=== PATIENT | male | born 1985 | race Caucasian/White ===

== ENCOUNTER 2018-03-15 15:18 | Emergency (ER) | payer OTHER, SELFPAY ==
[2018-03-15 15:19] VITALS: BP 138/98; PULSE 66; RESP 18; TEMP 36.2; O2SAT 99; BMI 25.0
--- NOTE | 2018-03-15 15:47 | ED.VISSUMM ---
- ER Visit Summary Date of Service: 03/15/18 Chief Complaint: Headache History of Present Illness: The patient is a 32 M who presents with a headache that has been constant for the past week. Patient had a CT scan done this morning which showed increased ventricular size is most pronounced in the lateral ventricles likely due to underlying shunt dysfunction. Patient states his last shunt surgery was at [facility] when he was under the age of 19. Patient denies any fevers. Patient denies any nausea or vomiting. Patient denies any paresthesias or weakness. Patient denies any visual changes. Patient describes his headache as a throbbing headache that is over the occiput and posterior neck. Patient states his pain is worse with standing. Physical Examination: Vital signs are stable. Patient is afebrile. Patient is in no acute distress. Cranial nerves II through XII are intact. Strength is 5/5 bilateral in the upper extremities. There are no motor deficits other than his chronic spina bifida deficits. Sensation is intact. Pupils are equal, round, and reactive to light bilateral. Extraocular muscles are intact. Oral mucosa is pink and moist. Neck is supple. Trachea is midline. There is no JVD noted. There is tenderness over the posterior cervical paraspinal muscles bilaterally. There is no bony crepitance or step-off. There is good range of motion. Heart was regular rate and rhythm. Lungs are clear and equal bilaterally. There is good respiratory effort noted. Abdomen is soft. Bowel sounds are normal. There is no tenderness. The remaining physical exam is within normal limits. Test Results: Review of the CT scan from this morning shows increased ventricular size most pronounced in the lateral ventricles with mildly increased crowding of the posterior fossa suggestive of underlying shunt dysfunction. Emergency Department Course and Treatment: Patient was given morphine here. Case was discussed with Dr. Encinas from the [facility] [place]. He accepted patient for transfer. They are very tight on beds and it will likely be a delay in the transfer. Patient and family understood and were agreeable with the plan. All questions were answered. 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 It may contain incorrect words, spelling, and punctuation that were not noted in review of the chart prior to signing ED Disposition - Plan for ED Patient: Disposition: Acute Care Hospital - Other Chief Complaint: Headache Diagnosis: Shunt malfunction Referrals: Jose Roberto Bradshaw [Primary Care Provider] -
--- NOTE | 2018-03-15 15:53 | ED.DCSUM_ITS ---
- ER Visit Summary Date of Service: 03/15/18 Chief Complaint: Headache History of Present Illness: The patient is a 32 M who presents with a headache that has been constant for the past week. Patient had a CT scan done this morning which showed increased ventricular size is most pronounced in the lateral ventricles likely due to underlying shunt dysfunction. Patient states his last shunt surgery was at [facility] when he was under the age of 19. Patient denies any fevers. Patient denies any nausea or vomiting. Patient denies any paresthesias or weakness. Patient denies any visual changes. Patient describes his headache as a throbbing headache that is over the occiput and posterior neck. Patient states his pain is worse with standing. Physical Examination: Vital signs are stable. Patient is afebrile. Patient is in no acute distress. Cranial nerves II through XII are intact. Strength is 5/ 5 bilateral in the upper extremities. There are no motor deficits other than his chronic spina bifida deficits. Sensation is intact. Pupils are equal, round, and reactive to light bilateral. Extraocular muscles are intact. Oral mucosa is pink and moist. Neck is supple. Trachea is midline. There is no JVD noted. There is tenderness over the posterior cervical paraspinal muscles bilaterally. There is no bony crepitance or step-off. There is good range of motion. Heart was regular rate and rhythm. Lungs are clear and equal bilaterally. There is good respiratory effort noted. Abdomen is soft. Bowel sounds are normal. There is no tenderness. The remaining physical exam is within normal limits. Test Results: Review of the CT scan from this morning shows increased ventricular size most pronounced in the lateral ventricles with mildly increased crowding of the posterior fossa suggestive of underlying shunt dysfunction. Emergency Department Course and Treatment: Patient was given morphine here. Case was discussed with Dr. Encinas from the [facility] at [place]. He accepted patient for transfer. They are very tight on beds and it will likely be a delay in the transfer. Patient and family understood and were agreeable with the plan. All questions were answered. 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 It may contain incorrect words, spelling, and punctuation that were not noted in review of the chart prior to signing ED Disposition - Plan for ED Patient: Disposition: Acute Care Hospital - Other Chief Complaint: Headache Diagnosis: Shunt malfunction Referrals: Jose Roberto Bradshaw [Primary Care Provider] -
[2018-03-15] MEDS: Ondansetron 4 MG/2 ML Vial IV (16:09)
[2018-03-15] MEDS: Morphine 4 MG/ML Syringe IV ×2 (16:10→17:48)
[2018-03-15 17:50] VITALS: BP 139/84; PULSE 70; RESP 16; O2SAT 100
[2018-03-15] MEDS: HYDROmorphone 1 MG/ML Syringe IV (18:49)
[2018-03-15 19:01] VITALS: BP 128/89; PULSE 75; RESP 16; O2SAT 99
[2018-03-15 19:05] VITALS: BP 128/89; PULSE 75; RESP 16; O2SAT 99
== END 2018-03-15 19:26 | disposition short-term general hospital (02) ==
PROVIDERS: Emergency Provider Emergency Medicine; Family Provider Family Medicine
DX: T85.01XA Breakdown (mechanical) of ventricular intracranial (communicating) shunt, initial encounter (principal); Q05.9 Spina bifida, unspecified; K21.9 Gastro-esophageal reflux disease without esophagitis
CPT/HCPCS: 96374; 96375; 96376; 99284; A4216; J2405

== ENCOUNTER 2018-03-20 12:17 | Emergency (ER) | payer OTHER, SELFPAY ==
[2018-03-20] VITALS (8 sets, daily range): BP systolic 109–131; BP diastolic 70–87; PULSE 56–87; RESP 14–25; TEMP 36.6–36.9; O2SAT 93–96; BMI 25.0
--- NOTE | 2018-03-20 12:54 | CT_ITS ---
STUDY: CT CERVICAL SPINE WITHOUT CONTRAST REASON FOR EXAM: Male, 32 years old. Status post fall. RADIATION DOSAGE (If Supplied By Facility): CTDIvol = ( 24.40 ) mGy, DLP = ( 617.77 ) mGycm TECHNIQUE: High resolution transaxial imaging was performed without contrast material. Sagittal and coronal images were reconstructed. Individualized dose optimization techniques were used for this CT. COMPARISON: None FINDINGS: Normal craniovertebral junction. Normal anterior atlantoaxial articulation. Normal odontoid process. Normal cervical lordosis. There is leftward torticollis. Normal vertebral bodies and posterior osseous elements. There is bifid spinous process at the levels of C4 and C5. C2-3: Normal endplates. Normal disc height and morphology. Normal central canal and intervertebral neuroforamina. C3-4: Normal endplates. Normal disc height and morphology. Normal central canal and intervertebral neuroforamina. C4-5: Normal endplates. Normal disc height and morphology. Normal central canal and intervertebral neuroforamina. C5-6: Normal endplates. Normal disc height and morphology. Normal central canal and intervertebral neuroforamina. C6-7: Normal endplates. Normal disc height and morphology. Normal central canal and intervertebral neuroforamina. C7-T1: Normal endplates. Normal disc height and morphology. Normal central canal and intervertebral neuroforamina. Normal visualized soft tissue structures. CT/Spine Cervical without Contras IMPRESSION: Leftward torticollis. No demonstrated acute fracture or subluxation. Electronically Signed: Jude Blanca MD at 14:28 EDT Tel , Service support ,
--- NOTE | 2018-03-20 12:54 | CT_ITS ---
STUDY: CT BRAIN WITHOUT CONTRAST REASON FOR EXAM: Male, 32 years old. Status post fall. Status post revision of LOAD BUILDER shunt. RADIATION DOSAGE (If Supplied By Facility): CTDIvol = ( 44.99 ) mGy, DLP = ( 829.85 ) mGycm TECHNIQUE: Transaxial CT imaging of the brain was performed without administration of intravenous contrast material. Individualized dose optimization techniques were used for this CT. COMPARISON: Prior comparison studies are not available for review at this time. FINDINGS: Normal soft tissue structures. There is a ruben hole in the right posterior parietal region. There is a ventriculostomy tube extending from the posterior right parietal region with its tip just superior to the anterior horn of the left lateral ventricle. There is small abdominal air in the interhemispheric fissure of the vertex. The ventricles are markedly dilated and larger on the left side particularly the occipital horns. The third and fourth ventricles are less distended. There is obliteration of the cortical sulci. No focal lesion otherwise is definitely seen. Normal basal ganglia and thalami. Normal brainstem. Normal cerebellum. There is no intracranial hemorrhage. There are no findings of an acute ischemic infarction. Normal visualized paranasal sinuses. CT/Brain/Head without Contrast IMPRESSION: Ventriculomegaly particularly of the occipital horn of the lateral ventricles and worse on the left side disproportionate to the cortical sulci Right-sided ventriculostomy tube with its tip just above the anterior horn of the left lateral ventricle. No evidence of bleeding. Comparison with previous examinations is recommended. Electronically Signed: Jude Blanca MD at 14:23 EDT Tel , Service support ,
--- NOTE | 2018-03-20 12:55 | EKG12_ITS ---
Test Reason : HEADACHE Blood Pressure : / mmHG Vent. Rate : 072 BPM Atrial Rate : 072 BPM P-R Int : 172 ms QRS Dur : 096 ms QT Int : 402 ms P-R-T Axes : 041 054 041 degrees QTc Int : 440 ms Normal sinus rhythm with sinus arrhythmia Normal ECG Confirmed by MIGUEL BATISTA, ANDREY ([id number]), order editor RUFUS QUINTANA ([id number]) on 03/22/2018 3:11:34 PM Referred By: YENNY Confirmed By:ANDREY RIVERA MD
--- NOTE | 2018-03-20 12:56 | ED.VISSUMM ---
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 Patient states he developed a severe headache in the occipital region and upper neck prior to arrival which caused him to fall. He thinks he lost consciousness, as he does not remember the fall. He is no longer having the severe headache but is still having severe pain in the upper neck, described as a throbbing in the midline neck. This is the same headache he had last week when he required emergency shunt revision for a malfunctioning valve. Patient denies fever, vision changes, abdominal pain, nausea or vomiting, or any back injury or other injury from the fall. Physical Examination: Vital signs: afebrile, hemodynamically stable, no hypoxia on room air General: well nourished, well developed, in no distress, c-collar in place Skin: warm, dry, no rash, no pallor HEENT: normocephalic large surgical incision on the right temporoparietal scalp with alfreda in place, no dehiscence, erythema, induration, tenderness or exudate; PERRL, EOMI, no nystagmus, moist mucous membranes Neck: No midline tenderness, deformities or step-offs, no paraspinal tenderness, shunt visible in the subcutaneous skin Cardiovascular: regular rate and rhythm without murmurs, no peripheral edema, 2+ pulses all distal extremities Respiratory: No increased work of breathing, lungs are clear to auscultation bilaterally, no rales, rhonchi or wheezing Abdominal: Abdomen is soft, nontender with normoactive bowel sounds, no guarding or rebound, no masses, well-healing surgical incision without dehiscence, erythema or exudate on the left upper abdomen MSK: Moves all extremities, no deformities, strength at baseline, orthopedic braces on bilateral lower extremities Neuro: Awake and alert, oriented ?4. No facial droop, sensation and motor function intact and symmetric Test Results: Abnormal Lab Results 03/20/18 03/20/18 03/20/18 13:25 13:25 13:25 WBC 7.0 RBC 4.36 L Hgb 13.2 Hct 39.6 L MCV 90.8 MCH 30.3 MCHC 33.3 RDW 12.5 RDW Differential 40.9 Plt Count 249 MPV 9.5 Immature Gran % (Auto) 0.300 Neut % (Auto) 70.7 H Lymph % (Auto) 11.9 L Hidalgo % (Auto) 12.7 H Eos % (Auto) 4.3 Baso % (Auto) 0.1 Absolute Neuts (auto) 4.9 Absolute Lymphs (auto) 0.83 Total Counted Not Reportable PT 13.0 INR 1.0 APTT 29.7 Sodium 142 Potassium 4.2 Chloride 110 H Carbon Dioxide 26.0 Anion Gap 6 BUN 14 Creatinine 0.86 Estim Creat Clear Calc 113.16 Est GFR (MDRD) Af Amer 131 Est GFR (MDRD) Non-Af 108 BUN/Creatinine Ratio 16.3 Glucose 67 L Calcium 8.7 Total Bilirubin 0.30 AST 54 H ALT 79 H Alkaline Phosphatase 96 Total Protein 7.1 Albumin 3.1 L Globulin 4.0 Albumin/Globulin Ratio 0.8 L Clinical Impression(s) from Imaging Studies Brain CT 03/20/18 12:54 IMPRESSION: Ventriculomegaly particularly of the occipital horn of the lateral ventricles and worse on the left side disproportionate to the cortical sulci Right-sided ventriculostomy tube with its tip just above the anterior horn of the left lateral ventricle. No evidence of bleeding. Comparison with previous examinations is recommended. Electronically Signed: Jude Blanca MD at 14:23 EDT Tel , Service support , Cervical Spine CT 03/20/18 12:54 IMPRESSION: Leftward torticollis. No demonstrated acute fracture or subluxation. Electronically Signed: Jude Blanca MD at 14:28 EDT Tel , Service support , Shuntogram 03/20/18 13:55 IMPRESSION: Shunt visualized extending from the skull to the abdominal cavity as described above. Electronically Signed: Jude Blanca MD at 14:48 EDT Tel , Service support , Medications Given Discontinued Medications Diphenhydramine HCl (Benadryl) 25 mg IV X1 ONE Stop: 03/20/18 12:57 Last Admin: 03/20/18 13:23 Dose: 25 mg Hydromorphone HCl (Dilaudid Inj) 1 mg IV X1 ONE Stop: 03/20/18 15:15 Last Admin: 03/20/18 15:36 Dose: 1 mg Metoclopramide HCl (Reglan) 10 mg IV X1 ONE Stop: 03/20/18 12:57 Last Admin: 03/20/18 13:22 Dose: 10 mg Emergency Department Course and Treatment: CT of the head and C-spine were performed given the trauma from falling as well as the severe headache and neck pain consistent with patient's prior shunt malfunction. Shunt series also performed. Patient was given Reglan and Benadryl for his headache, which gave no relief of his pain. Patient states he was receiving Dilaudid while in the hospital for shunt revision this past week. I am concerned his headache may be at least partially related to algesia rebound headache, however patient's headache was poorly controlled and thus he was given a dose of Dilaudid here. He had great improvement in his headache with this. CT of the head showed ventriculomegaly, left greater than right, concerning for shunt malfunction. No fracture or dislocation on the CT neck. Shunt series showed one area of either radio-opaque portion of the shunt or else a disconnect in the shunt in the parietal region. Because of concern for shunt malfunction, patient was again discussed with [facility], and was accepted for transfer to [facility] for neurosurgical reevaluation by Dr. Oliva. 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 It may contain incorrect words, spelling, and punctuation that were not noted in review of the chart prior to signing ED Disposition - Plan for ED Patient: Chief Complaint: Headache Referrals: Jose Roberto Bradshaw [Primary Care Provider] -
--- NOTE | 2018-03-20 13:00 | ED.DCSUM_ITS ---
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 Patient states he developed a severe headache in the occipital region and upper neck prior to arrival which caused him to fall. He thinks he lost consciousness, as he does not remember the fall. He is no longer having the severe headache but is still having severe pain in the upper neck, described as a throbbing in the midline neck. This is the same headache he had last week when he required emergency shunt revision for a malfunctioning valve. Patient denies fever, vision changes, abdominal pain, nausea or vomiting, or any back injury or other injury from the fall. Physical Examination: Vital signs: afebrile, hemodynamically stable, no hypoxia on room air General: well nourished, well developed, in no distress, c-collar in place Skin: warm, dry, no rash, no pallor HEENT: normocephalic large surgical incision on the right temporoparietal scalp with alfreda in place, no dehiscence, erythema, induration, tenderness or exudate; PERRL, EOMI, no nystagmus, moist mucous membranes Neck: No midline tenderness, deformities or step-offs, no paraspinal tenderness, shunt visible in the subcutaneous skin Cardiovascular: regular rate and rhythm without murmurs, no peripheral edema, 2+ pulses all distal extremities Respiratory: No increased work of breathing, lungs are clear to auscultation bilaterally, no rales, rhonchi or wheezing Abdominal: Abdomen is soft, nontender with normoactive bowel sounds, no guarding or rebound, no masses, well-healing surgical incision without dehiscence, erythema or exudate on the left upper abdomen MSK: Moves all extremities, no deformities, strength at baseline, orthopedic braces on bilateral lower extremities Neuro: Awake and alert, oriented ?4. No facial droop, sensation and motor function intact and symmetric Test Results: Abnormal Lab Results 03/20/18 03/20/18 03/20/18 13:25 13:25 13:25 WBC 7.0 RBC 4.36 L Hgb 13.2 Hct 39.6 L MCV 90.8 MCH 30.3 MCHC 33.3 RDW 12.5 RDW Differential 40.9 Plt Count 249 MPV 9.5 Immature Gran % (Auto) 0.300 Neut % (Auto) 70.7 H Lymph % (Auto) 11.9 L Powell % (Auto) 12.7 H Eos % (Auto) 4.3 Baso % (Auto) 0.1 Absolute Neuts (auto) 4.9 Absolute Lymphs (auto) 0.83 Total Counted Not Reportable PT 13.0 INR 1.0 APTT 29.7 Sodium 142 Potassium 4.2 Chloride 110 H Carbon Dioxide 26.0 Anion Gap 6 BUN 14 Creatinine 0.86 Estim Creat Clear Calc 113.16 Est GFR (MDRD) Af Amer 131 Est GFR (MDRD) Non-Af 108 BUN/Creatinine Ratio 16.3 Glucose 67 L Calcium 8.7 Total Bilirubin 0.30 AST 54 H ALT 79 H Alkaline Phosphatase 96 Total Protein 7.1 Albumin 3.1 L Globulin 4.0 Albumin/Globulin Ratio 0.8 L Clinical Impression(s) from Imaging Studies Brain CT 03/20/18 12:54 IMPRESSION: Ventriculomegaly particularly of the occipital horn of the lateral ventricles and worse on the left side disproportionate to the cortical sulci Right-sided ventriculostomy tube with its tip just above the anterior horn of the left lateral ventricle. No evidence of bleeding. Comparison with previous examinations is recommended. Electronically Signed: Jude Blanca MD at 14:23 EDT Tel , Service support , Cervical Spine CT 03/20/18 12:54 IMPRESSION: Leftward torticollis. No demonstrated acute fracture or subluxation. Electronically Signed: Jude Blanca MD at 14:28 EDT Tel , Service support , Shuntogram 03/20/18 13:55 IMPRESSION: Shunt visualized extending from the skull to the abdominal cavity as described above. Electronically Signed: Jude Blanca MD at 14:48 EDT Tel , Service support , Medications Given Discontinued Medications Diphenhydramine HCl (Benadryl) 25 mg IV X1 ONE Stop: 03/20/18 12:57 Last Admin: 03/20/18 13:23 Dose: 25 mg Hydromorphone HCl (Dilaudid Inj) 1 mg IV X1 ONE Stop: 03/20/18 15:15 Last Admin: 03/20/18 15:36 Dose: 1 mg Metoclopramide HCl (Reglan) 10 mg IV X1 ONE Stop: 03/20/18 12:57 Last Admin: 03/20/18 13:22 Dose: 10 mg Emergency Department Course and Treatment: CT of the head and C-spine were performed given the trauma from falling as well as the severe headache and neck pain consistent with patient's prior shunt malfunction. Shunt series also performed. Patient was given Reglan and Benadryl for his headache, which gave no relief of his pain. Patient states he was receiving Dilaudid while in the hospital for shunt revision this past week. I am concerned his headache may be at least partially related to algesia rebound headache, however patient's headache was poorly controlled and thus he was given a dose of Dilaudid here. He had great improvement in his headache with this. CT of the head showed ventriculomegaly, left greater than right, concerning for shunt malfunction. No fracture or dislocation on the CT neck. Shunt series showed one area of either radio-opaque portion of the shunt or else a disconnect in the shunt in the parietal region. Because of concern for shunt malfunction, patient was again discussed with [facility], and was accepted for transfer to [facility] for neurosurgical reevaluation by Dr. Oliva. 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 It may contain incorrect words, spelling, and punctuation that were not noted in review of the chart prior to signing ED Disposition - Plan for ED Patient: Chief Complaint: Headache Referrals: Jose Roberto Bradshaw [Primary Care Provider] -
[2018-03-20] MEDS: Metoclopramide 10 MG/2 ML Vial IV (13:22)
[2018-03-20] MEDS: DiphenhydrAMINE 50 MG/ML Syringe 25 MG IV (13:23)
[2018-03-20 13:37] LABS: Absolute Lymphocyte Count 0.83 X10^3/ul (0.83-4.51); Absolute Neutrophil Count 4.9 X10^3/uL (2.0-7.7); Basophil# 0.01 X10^3/uL; Basophil% 0.1 % (0-1); Eosinophils% 4.3 % (0-5); Hematocrit 39.6 % (40-54); Hemoglobin 13.2 g/dl (13.0-16.5); Lymphocyte # 0.83 X10^3/ul (4.0); Lymphocyte % 11.9 % (19-41); Mean Corp Hgb Conc 33.3 g/gl (32-36); Mean Corpuscular Hgb 30.3 pg (27.0-32.0); Mean Corpuscular Volume 90.8 fL (80-94); Mean Platelet Vol. 9.5 fl (6.2-12.0); Monocyte# 0.88 X10^3/uL; Monocyte% 12.7 % (0-10); Neutrophil # 4.91 X10^3/uL (2.7-7.7); Neutrophil % 70.7 % (47-70); POSITIVE COUNT NO; POSITIVE DIFFERENTIAL NO; POSITIVE MORPHOLOGY NO; Platelet Count 249 K/mm3 (150-450); RBC Distribution Width CV 12.5 % (11.6-14.6); RBC Distribution Width SD 40.9 fl (35.1-43.9); Red Blood Count 4.36 M/mm3 (4.6-6.2)
[2018-03-20 13:44] LABS: Partial Thromboplast Time 29.7 Seconds (24.1-36.2)
--- NOTE | 2018-03-20 13:55 | RAD_ITS ---
STUDY: SHUNTOGRAM. REASON FOR EXAM: Male, 32 years old. Evaluate shunt continuity. TECHNIQUE: View of the skull and neck, AP view of the chest and abdomen were obtained. COMPARISON: None. FINDINGS: There is a shunt overlying the parietal region. There is a gap in the shunt overlying the posterior parietal region. It is likely due to nonopaque part of the shunt. Discontinuity is less likely but cannot be excluded.. Distal to this region, the shunt appears continuous extending from the base of the skull to the abdominal cavity. In the abdominal cavity, it is coiled. There is contrast in the colon overlying the shunt in the upper abdomen limiting the evaluation of shunt in this region. RAD/Shuntogram/Prec Placed Shunt IMPRESSION: Shunt visualized extending from the skull to the abdominal cavity as described above. Electronically Signed: Jude Blanca MD at 14:48 EDT Tel , Service support ,
[2018-03-20 13:57] LABS: ALB/GLOB Ratio 0.8 RATIO (0.9-2.4); AST(SGOT) 54 U/L (15-37); Alanine Aminotransfer ALT/SGPT 79 U/L (16-61); Albumin, Serum 3.1 g/dL (3.2-5.0); Alkaline Phosphatase 96 U/L (45-117); Anion Gap 6 (5-15); BUN 14 mg/dL (7-18); BUN/Creat Ratio 16.3 RATIO (10-20); Calcium,Total 8.7 mg/dL (8.5-10.1); Chloride 110 mmol/L (98-107); Creatinine, Serum 0.86 mg/dL (0.70-1.30); EST Glomerular Filtration Rate 108 mL/min (>60); Est Glom Filt Rate - Afr Amer 131 mL/min (>60); Estimated Creatinine Clearance 113.16 ml/min; Glucose 67 mg/dL (74-106); Potassium 4.2 mmol/L (3.5-5.1); Protein, Total 7.1 g/dL (6.4-8.2); Sodium Level 142 mmol/L (136-145)
[2018-03-20] MEDS: HYDROmorphone 1 MG/ML Syringe IV (15:36)
[2018-03-20] MEDS: HYDROmorphone 0.5 MG/0.5 ML SYRINGE IV (17:30)
== END 2018-03-20 18:43 | disposition short-term general hospital (02) ==
LOC: ED 13:03
PROVIDERS: Emergency Provider Emergency Medicine; Family Provider Family Medicine
DX: T85.01XA Breakdown (mechanical) of ventricular intracranial (communicating) shunt, initial encounter (principal); Q05.9 Spina bifida, unspecified; R51 Headache; M54.2 Cervicalgia; W19.XXXA Unspecified fall, initial encounter; Y93.9 Activity, unspecified; Y92.9 Unspecified place or not applicable; Y99.9 Unspecified external cause status; Z79.899 Other long term (current) drug therapy
CPT/HCPCS: 70450; 72125; 75809; 80053; 85025; 85610; 85730; 93005; 96374; 96375; 96376; 99285; J7030; A4216

== ENCOUNTER → 2018-10-20 16:30 | Outpatient (CLI) | payer OTHER, SELFPAY ==
--- NOTE | 2018-10-20 16:34 | US_ITS ---
STUDY: SCROTUM ULTRASOUND REASON FOR EXAM: Male, 32 years old. Right testicular pain today. History of epididymitis. TECHNIQUE: Ultrasound evaluation of the scrotum was performed with color Doppler and static lucero-scale imaging. COMPARISON: None. FINDINGS: RIGHT TESTICLE INTRATESTICULAR: There is a normal size of the right testicle. The right testicle measures 3.7 x 2.6 x 1.6 cm. There is a homogenous echotexture. There is normal arterial and normal venous vascularity. There is no demonstrated right testicular mass or cyst. EXTRATESTICULAR: The epididymis is normal in size. The epididymis head measures 1.0 x 0.7 x 1.1 cm. There is normal vascularity of the epididymis. There is a 2 mm epididymal head cyst. There is a small hydrocele. There is no demonstrated varicocele. There is no demonstrated extratesticular mass or cyst. LEFT TESTICLE INTRATESTICULAR: There is a normal size of the left testicle. The left testicle measures 3.8 x 2.5 x 1.4 cm. There is a homogenous echotexture. There is normal arterial and normal venous vascularity. There is no demonstrated left testicular mass or cyst. EXTRATESTICULAR: The epididymis is normal in size. The epididymis head measures 1.1 x 1.1 x 0.8 cm. There is normal vascularity of the epididymis. There is no demonstrated epididymal cystic structure. There is no demonstrated hydrocele. There is no demonstrated varicocele. There is no demonstrated extratesticular mass or cyst. US/Testicular with Arterial Flow IMPRESSION: 1. Small right epididymal head cyst. 2. Small left hydrocele. 3. Otherwise normal scrotal ultrasound. Electronically Signed: Ramakrishna Santoyo DO at 17:27 EDT Tel [phone], Service support ,
== END ==
PROVIDERS: Family Provider Family Medicine; Referring Provider Family Medicine; Visit Provider Family Medicine
DX: N50.811 Right testicular pain (principal)
CPT/HCPCS: 76870; 93976

== ENCOUNTER 2018-11-02 12:10 | Emergency (ER) | payer OTHER, SELFPAY ==
[2018-11-02 12:10] VITALS: BP 130/86; PULSE 78; RESP 18; TEMP 36.8; O2SAT 98; BMI 23.5
[2018-11-02 13:19] VITALS: BP 129/88; PULSE 71; RESP 12; O2SAT 96
--- NOTE | 2018-11-02 13:30 | ED.VISSUMM ---
- ER Visit Summary Date of Service: 11/02/18 Chief Complaint: Back pain History of Present Illness: The patient is a 32 M history of spina bifida, anxiety depression and MANAGER STATE shunt. As a child he had lower back surgery to close his spina bifida opening. He has had no back surgery since that time. States the last several days has had intermittent sharp low back pain. Denies any radiation to his legs. No numbness or tingling. No new weakness. No bowel or bladder incontinence. No retention. No fever. No recent falls or injury or trauma. He is on no blood thinners. Physical Examination: Well-appearing young male. Vital signs stable afebrile. No distress. HEENT exam unremarkable. Neck nontender. Lungs clear to auscultation bilaterally. Heart regular rhythm no murmur. Abdomen soft nontender. Normal bowel sounds no peritoneal signs. Extremities moves all 4. Both upper extremities are neurovascularly intact lower extremities he wears chronic long-leg braces. He said there is been no change in his strength or sensation. He is able to lift either leg off the bed. With his braces on he does not do dorsi or plantarflexion. He has normal medial thigh sensation. Negative straight leg raise. No cauda equina or saddle anesthesia. Back exam cervical thoracic spine are nontender. His proximal lumbar spine there is mild tenderness. There is no ecchymosis or bruising. No redness or warmth. No signs of trauma. He has an old spina bifida surgical scar with a deep closure. This is on the very lowest lumbar spine area. Neurologically is awake and alert. He has chronic weakness in both lower extremities but is unchanged and he is able to lift both legs. Again no cauda equina or saddle anesthesia. Test Results: Discussed with patient we opted not to get plain films. He knows if this is not improving he may need an MRI for more appropriate evaluation of atraumatic spine pain. Emergency Department Course and Treatment: Toradol for pain. Treatment Plan: Anti-inflammatories for pain. Follow-up with his primary care physician if not improving he may need an MRI. He knows return if he develops fever, weakness or bowel or bladder incontinence or retention Disposition: Discharge Impression: Acute musculoskeletal low back pain History of spina bifida This note was generated with [place] [employer] software. It may contain incorrect words, spelling, and punctuation that were not noted in review of the chart prior to signing ED Disposition - Plan for ED Patient: Referrals: Jose Roberto Bradshaw [Primary Care Provider] -
--- NOTE | 2018-11-02 13:34 | ED.DCSUM_ITS ---
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 As a child he had lower back surgery to close his spina bifida opening. He has had no back surgery since that time. States the last several days has had intermittent sharp low back pain. Denies any radiation to his legs. No numbness or tingling. No new weakness. No bowel or bladder incontinence. No retention. No fever. No recent falls or injury or trauma. He is on no blood thinners. Physical Examination: Well-appearing young male. Vital signs stable afebrile. No distress. HEENT exam unremarkable. Neck nontender. Lungs clear to auscultation bilaterally. Heart regular rhythm no murmur. Abdomen soft nontender. Normal bowel sounds no peritoneal signs. Extremities moves all 4. Both upper extremities are neurovascularly intact lower extremities he wears chronic long-leg braces. He said there is been no change in his strength or sensation. He is able to lift either leg off the bed. With his braces on he does not do dorsi or plantarflexion. He has normal medial thigh sensation. Negative straight leg raise. No cauda equina or saddle anesthesia. Back exam cervical thoracic spine are nontender. His proximal lumbar spine there is mild tenderness. There is no ecchymosis or bruising. No redness or warmth. No signs of trauma. He has an old spina bifida surgical scar with a deep closure. This is on the very lowest lumbar spine area. Neurologically is awake and alert. He has chronic weakness in both lower extremities but is unchanged and he is able to lift both legs. Again no cauda equina or saddle anesthesia. Test Results: Discussed with patient we opted not to get plain films. He knows if this is not improving he may need an MRI for more appropriate evaluation of atraumatic spine pain. Emergency Department Course and Treatment: Toradol for pain. Treatment Plan: Anti-inflammatories for pain. Follow-up with his primary care physician if not improving he may need an MRI. He knows return if he develops fever, weakness or bowel or bladder incontinence or retention Disposition: Discharge Impression: Acute musculoskeletal low back pain History of spina bifida This note was generated with [employer] software. It may contain incorrect words, spelling, and punctuation that were not noted in review of the chart prior to signing ED Disposition - Plan for ED Patient: Referrals: Jose Roberto Bradshaw [Primary Care Provider] -
--- NOTE | 2018-11-02 13:34 | ED.DEP ---
ED Disposition - Plan for ED Patient: Disposition: Home or Assisted Living Instructions: ED Neck Back Pain General Referrals: Jose Roberto Bradshaw [Primary Care Provider] - 1 Week if not improving Additional Instructions: Motrin for pain. If not improving follow-up your primary care physician. You may need an MRI for further evaluation. Return to the ER if intractable worsening pain, fever or or bowel or bladder incontinence, unable to urinate or significant weakness in your lower extremities its new.
[2018-11-02] MEDS: Ketorolac 60 MG/2 ML Vial IM (13:37)
== END 2018-11-02 13:57 | disposition home or self-care (01) ==
PROVIDERS: Emergency Provider Emergency Medicine; Family Provider Family Medicine
DX: M54.5 Low back pain (principal); Q05.9 Spina bifida, unspecified; F32.9 Major depressive disorder, single episode, unspecified; F41.9 Anxiety disorder, unspecified; Z79.899 Other long term (current) drug therapy; Z98.2 Presence of cerebrospinal fluid drainage device
CPT/HCPCS: 96372; 99282; A4216

== ENCOUNTER 2019-04-19 16:29 | Emergency (ER) | payer OTHER, SELFPAY ==
[2019-04-19 16:30] VITALS: BP 122/81; PULSE 81; RESP 14; TEMP 36.7; O2SAT 100; BMI 24.0
--- NOTE | 2019-04-19 17:23 | CT_ITS ---
STUDY: CT BRAIN WITHOUT CONTRAST REASON FOR EXAM: Male, 33 years old. Headache for 4 days. Concern for malfunctioning BODY AND FENDER MECHANIC shunt. RADIATION DOSAGE (If Supplied By Facility): CTDIvol = ( 44.99 ) mGy, DLP = ( 796.11 ) mGycm TECHNIQUE: Transaxial CT imaging of the brain was performed without administration of intravenous contrast material. Individualized dose optimization techniques were used for this CT. COMPARISON: March 20, 2018. FINDINGS: Normal soft tissue structures. Again seen is a right parietal BODY AND FENDER MECHANIC shunt catheter entering through a ruben hole. Tip extends into the right lateral ventricle. There is marked decrease dilatation of the ventricles when compared to the prior study. Again seen is prominence of the foramen magnum with a Chiari I malformation unchanged from the prior study. There is persistent mild dilatation of the occipital horn of the left lateral ventricle. The remainder of the ventricles are of normal size. Mild cerebral atrophy. Normal white matter tracts of the cerebral hemispheres. Normal basal ganglia and thalami. Normal brainstem. Normal cerebellum. There is no intracranial hemorrhage. There are findings suggestive of small subdural hygromas which were noted on the previous examination. There are no findings of an acute ischemic infarction. Normal visualized paranasal sinuses. CT/Brain/Head without Contrast IMPRESSION: 1. Right-sided BODY AND FENDER MECHANIC shunt catheter. There is interval decrease in ventricular dilatation when compared to the previous examination. 2. Question small subdural hygroma is unchanged from prior study. There is no evidence of acute hemorrhage or infarct. 3. Stable Chiari malformation. Electronically Signed: Ramakrishna Santoyo DO at 18:13 EDT Tel [phone], Service support ,
--- NOTE | 2019-04-19 17:23 | ED.DCSUM_ITS ---
History of Present Illness Chief Complaint: Headache Informant: Patient Onset: Days - Onset 3 days ago April 15 Context: Sudden Timing: Continuous Quality: Similar Prior Headaches Location: Global Current Severity: Moderate Maximum Severity: Severe Worsened by: Walking Relieved by: Nothing Associated Symptoms: Blurred Vision. Negative for: Fever, Nausea, Vomiting, Sore Throat, Sinus Pressure, Tingling, Preceding Aura, Visual Changes, Visual Loss Injury: - - There is no history of trauma Narrative: Patient is a 33-year-old male with history of hydrocephalus and spina bifida who presents with headache that started abruptly 3 days ago. 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 His last revision was 1 year ago at [facility]. He complained of intermittent blurred vision bilaterally. He had no other ocular symptoms. He denies ringing his ears, decreased hearing or ear pain. He denies trouble with speech or swallowing. He denies any new paresthesia, anesthesia motor weakness. He does have weakness of his lower extremity secondary to spina bifida. He does self cath. He has no complaints of discomfort with self cath or odor or change in color of his urine. He denies neck stiffness. He denies photophobia. Prior similar symptoms: Yes Recent Illness/Hospitalization: Yes - Past Medical History (1) Spina bifida Status: Chronic (2) Ventricular shunt in place Status: Chronic Past Medical History - Allergies and Home Meds Allergies/Adverse Reactions: Allergies Iodine and Iodide Containing Produc Allergy (Verified 04/19/19 16:33) Rash acetaminophen [From Vicodin] Adverse Reaction (Verified 04/19/19 16:33) Chest tightness hydrocodone [From Vicodin] Adverse Reaction (Verified 04/19/19 16:33) Chest tightness Latex, Natural Rubber Adverse Reaction (Verified 04/19/19 16:33) Chest tightness Penicillins [PCN] Adverse Reaction (Verified 04/19/19 16:33) Rash Primary Care Physician: Jose Roberto Bradshaw [Primary Care Provider] - Prior records reviewed: Yes Surgical History: - - Patient is undergone several bladder augmentation procedures. He has a ventriculoperitoneal shunt in place, which has required several revisions. He has had left hip surgery as well. Lives: Alone Smoking Status: Former smoker Alcohol: None Drugs: None - Family History Maternal Family History: Reports: - - Patient's father at age of 71 with a history of Alzheimer's disease, diabetes mellitus, dementia, and abdominal cancer. The patient's mother is 71 years of age and healthy. Review of Systems General: Denies: Chills, Fever, Sweats Eyes: Reports: Blurred Vision - bilaterally. Denies: Visual changes - bilaterally, Diplopia ENT: Denies: Bilateral ear pain, Rhinorrhea, Sore throat Cardiovascular: Denies: Chest pain, Palpitations, Heart racing Respiratory: Denies: Dyspnea, Cough, Dyspnea on exertion Gastrointestinal: Denies: Abdominal pain, Nausea, Vomiting, Diarrhea, Melena, Hematochezia Genitourinary: Denies: Dysuria, Hematuria, Frequency Musculoskeletal: Denies: Myalgias, Arthralgias, Neck pain, Back pain, Swelling, Extremity Pain, -, - Skin: Denies: Rash, Wounds Neurological: Reports: Headache, Parasthesia, Numbness Psych: Denies: Depression Hematologic: Denies: Easy bruising, Easy bleeding Allergy: Denies: Uticaria Physical Exam Vital Signs/Narrative: Vital Signs Temp Pulse Resp BP Pulse Ox 04/19/19 16:30 98.1 F 81 14 122/81 H 100 General: Well nourished, Well developed. Negative for: Obese, Cachectic, Contractures, Unkempt Head: NC, AT. Negative for: Trauma, Tenderness, Temporary Artery Tenderness, Vesicular Rash, Sinus Tenderness Eyes: Perrl, EOMI. Negative for: Pale conjunctiva, Scleral icterus ENT: Moist mucous membranes, No rhinorrhea, TM's clear Neck: Supple, No Lymphadenopathy, No JVD, Nontender, No Meningismus Cardiovascular: Regular rate, Regular rhythm, No murmurs, Normal S1, Normal S2 Respiratory: No distress, CTA bilaterally, Chest nontender Abdomen: Soft, Nontender, Nondistended, Normal bowel sounds, No masses Back: Nontender, Normal Inspection Extremities: Nontender, No edema Skin: Normal color, No rash Neuro: Alert, Oriented x3, Cranial nerves II-XII grossly intact. Negative for: Normal Strength, Normal Sensation, Normal DTR, Normal Gait Psychological: Normal affect Diagnostic/Tx/Re-eval Impressions Brain CT 04/19/19 17:23 IMPRESSION: 1. Right-sided LATEX RIBBON MACHINE OPERATOR shunt catheter. There is interval decrease in ventricular dilatation when compared to the previous examination. 2. Question small subdural hygroma is unchanged from prior study. There is no evidence of acute hemorrhage or infarct. 3. Stable Chiari malformation. Electronically Signed: Ramakrishna SantoyoDO at 18:13 EDT Tel [phone], Service support , 04/19/19 17:23 Brain/Head without Contrast [CT] Stat Patient states he has had slight improvement of his headache after IV Toradol. He was informed of his results. - Medical Decision Making With history of abrupt headache and LATEX RIBBON MACHINE OPERATOR shunt will obtain CT to assess malfunctioning LATEX RIBBON MACHINE OPERATOR shunt. Patient was medicated with IV Toradol. Was discharged prescription for Reglan and anti-inflammatory. He was instructed to follow with Dr. Bradshaw if no improvement in 2 to 3 days. ED Disposition - Plan for ED Patient: Disposition: Home or Assisted Living Diagnosis: Cephalgia, History of hydrocephalus as a child Instructions: HEADACHE, Unspecified Prescriptions: Naproxen [Naprosyn] 500 mg PO BID #10 tab Prescription Printed Metoclopramide [Reglan] 10 mg PO 4X/DAY PRN #10 tab PRN Reason: Headache Prescription Printed Referrals: Jose Roberto Bradshaw [Primary Care Provider] - 3-5 Days if not improving
[2019-04-19] MEDS: Ketorolac 30 MG/ML Syringe 15 MG IV (17:46)
[2019-04-19 18:42] VITALS: BP 127/94; PULSE 85; RESP 16; O2SAT 98
--- NOTE | 2019-04-19 18:42 | ED.RN ---
REVIEWED D/C INSTRUCTIONS, FOLLOW UP CARE, PRESCRIPTIONS, AND S/S THAT WOULD WARRANT A RETURN TO THE ED WITH PT. PT VERBALIZED AN UNDERSTANDING AND DENIES FURTHER QUESTIONS FOR THIS RN. PT SKIN P/W/D, RESP EVEN AND UNLABORED, PT A&O X 3, NO DISTRESS NOTED. PT AMBULATED OUT OF ED, GAIT STEADY.R
== END 2019-04-19 18:44 | disposition home or self-care (01) ==
PROVIDERS: Emergency Provider Emergency Medicine; Family Provider Family Medicine
DX: R51 Headache (principal); Q05.4 Unspecified spina bifida with hydrocephalus; Z98.2 Presence of cerebrospinal fluid drainage device; Z87.891 Personal history of nicotine dependence
CPT/HCPCS: 70450; 96374; 99284; A4216

== ENCOUNTER 2019-12-12 09:55 | Emergency (ER) | payer OTHER, SELFPAY ==
[2019-12-12 09:56] VITALS: BP 132/83; PULSE 86; RESP 17; TEMP 36.3; O2SAT 98; BMI 25.2
--- NOTE | 2019-12-12 10:25 | CT_ITS ---
STUDY: CT ABDOMEN AND PELVIS WITH CONTRAST REASON FOR EXAM: Male, 33 years old. ABD/EPIGASTRIC/RECTAL PAIN X 2-3 WKS, V/P SHUNT, SPINA BIFIDA RADIATION DOSAGE (If Supplied By Facility): CTDIvol = ( 8.67 ) mGy, DLP = ( 475.68 ) mGycm TECHNIQUE: Transaxial images were obtained from the dome of the diaphragm to the symphysis pubis without oral contrast. IV 100ML ISOVUE 300 was administered. Sagittal and coronal images were reconstructed. Individualized dose optimization techniques were used for this CT. COMPARISON: 2016 FINDINGS: The visualized lung bases are unremarkable, aside from dependent atelectasis. The visualized portions of the heart are within normal limits. Right-sided SQL SERVER DBA shunt tube noted Again noted are changes consistent with spina bifida posterior to L4-L5 and the sacrum. Markedly abnormal neurogenic bladder is again noted. Normal liver. Normal gallbladder and extrahepatic biliary system. Normal spleen. Normal pancreas. Normal bilateral adrenal glands. Left kidney is smaller than the right with stable pelviectasis. This again is likely due to a neurogenic bladder. Normal visualized stomach. Multiple nondistended fluid-filled small and large bowel loops are noted consistent with gastroenteritis. The appendix is visualized and appears normal. Normal abdominal aorta. Normal inferior vena cava. Normal retroperitoneum. There is a multiloculated fluid collection within the medial left buttocks measuring 3.9 x 3.6 cm. There is associated induration of the subcutaneous fat and skin thickening. Similar induration of the subcutaneous fat and skin thickening noted in the right side but no suspicious fluid collection is noted. Normal osseous structures aside from the spina bifida changes CT/Abdomen/Pelvis W IV Cont ONLY IMPRESSION: Multiloculated fluid collection in the medial left gluteal region best seen on axial images 129 through 133 with associated induration of the subcutaneous fat and skin thickening. This is likely an inflammatory process, perhaps abscess. No subcutaneous air or within this collection is noted. No abnormal fluid in the soft tissues of the right gluteal region is noted but there is nonspecific induration of the subcutaneous fat and skin thickening as well. Stable atrophic left kidney with pelviectasis Multiple nondistended fluid-filled small and large bowel loops consistent with gastroenteritis Right-sided SQL SERVER DBA shunt tube noted Changes in the lower lumbar spine and sacrum consistent with patient''s history of spina bifida Electronically Signed: Godfrey Stallings MD at 12:39 EDT , Service support ,
--- NOTE | 2019-12-12 10:31 | ED.DCSUM_ITS ---
History of Present Illness Chief Complaint: Abd Pain Informant: Patient - Abdominal Pain/Flank Pain Onset: Weeks Context: Gradual Onset Timing: Continuous Quality: Aching, Sharp Location: Epigastric - Nausea/Vomiting/Emesis GI Symptom: Negative for: Nausea, Vomiting - Diarrhea/Melena/Hematochezia GI Symptom: Diarrhea. Negative for: Melena, Hematochezia Narrative: Patient is a 33-year-old male with history of spina bifida status post bladder surgery and MUSHROOM GROWER shunt placements, last replaced 1 year ago, as well as depression presenting with abdominal pain. Patient states he has had constant epigastric abdominal pain for the past 2 to 3 weeks. It fluctuates in intensity and seems to be worse after he eats or drinks anything. He denies any radiation of that pain. He also notes he is had some pain in his lower back for the past week. In addition for the past week he has had rectal pain with bowel movements. He denies any black or bloody stools. He states his bowel movements have been abnormal lately where he feels that his stool builds up and then all of a sudden he has diarrhea. Patient denies any penile discharge or dysuria. He denies any chest pain, shortness of breath or difficulty breathing. [place] any fever or chills. He has no associated nausea and vomiting. Patient saw his PCP who thought he might have acid reflux and placed him on Pepcid twice a day. He feels that this is not helping. He denies any other complaints at this time. Past Medical History - Allergies and Home Meds Allergies/Adverse Reactions: Allergies Iodine and Iodide Containing Produc Allergy (Verified 12/12/19 09:56) Rash acetaminophen [From Vicodin] Adverse Reaction (Verified 12/12/19 09:56) Chest tightness hydrocodone [From Vicodin] Adverse Reaction (Verified 12/12/19 09:56) Chest tightness Latex, Natural Rubber Adverse Reaction (Verified 12/12/19 09:56) Chest tightness Penicillins [PCN] Adverse Reaction (Verified 12/12/19 09:56) Rash Primary Care Physician: Sylvie Dee MD [STAFF PHYSICIAN] - Jose Roberto Bradshaw [Primary Care Provider] - Past Medical History: - - depression, spina bifida Surgical History: - - Patient is undergone several bladder augmentation procedures. He has a ventriculoperitoneal shunt in place, which has required several revisions. He has had left hip surgery as well. Smoking Status: Former smoker - Family History Maternal Family History: Reports: - - Patient's father at age of 71 with a history of Alzheimer's disease, diabetes mellitus, dementia, and abdominal cancer. The patient's mother is 71 years of age and healthy. Review of Systems General: Denies: Chills, Fever, Sweats Eyes: Denies: Visual changes - bilaterally, Diplopia ENT: Denies: Rhinorrhea, Sore throat Cardiovascular: Denies: Chest pain, Palpitations Respiratory: Denies: Dyspnea, Cough, Dyspnea on exertion Gastrointestinal: Reports: Abdominal pain, Diarrhea. Denies: Nausea, Vomiting, Melena, Hematochezia Genitourinary: Denies: Dysuria, Hematuria, Frequency Musculoskeletal: Reports: Back pain. Denies: Extremity Pain Skin: Denies: Rash, Wounds Neurological: Denies: Headache, Weakness, Numbness Physical Exam Vital Signs/Narrative: Vital Signs Temp Pulse Resp BP Pulse Ox 12/12/19 09:56 97.3 F L 86 17 132/83 H 98 Inital Vital Signs reviewed: Yes General: Well nourished, Well developed, No Acute Distress Head: Normocephalic, Atraumatic Eyes: Perrl, EOMI ENT: Moist mucous membranes, No rhinorrhea Neck: Supple, Nontender, No JVD Cardiovascular: Regular rate, Regular rhythm, No murmurs Respiratory: No distress, CTA bilaterally, Chest nontender Abdomen: Soft, Nondistended, Normal bowel sounds, Tender - Right upper quadrant, Silveira's sign Rectal: Tenderness, - - Mild tenderness palpation rectal exam, abscess appreciated. No hemorrhoids visualized. Tenderness is not located directly with the prostate. Back: Nontender, Normal Inspection. Negative for: CVA tenderness, Spinal tenderness Extremities: Nontender, No edema Skin: Normal color, No rash Neurological: Alert, Oriented x3, Cranial nerves II-XII grossly intact, Normal Strength, Normal Sensation Psychological: Normal affect, Normal Mood Diagnostic/Tx/Re-eval Clinical Impression(s) from Imaging Studies Abdomen/Pelvis CT 12/12/19 10:25 IMPRESSION: Multiloculated fluid collection in the medial left gluteal region best seen on axial images 129 through 133 with associated induration of the subcutaneous fat and skin thickening. This is likely an inflammatory process, perhaps abscess. No subcutaneous air or within this collection is noted. No abnormal fluid in the soft tissues of the right gluteal region is noted but there is nonspecific induration of the subcutaneous fat and skin thickening as well. Stable atrophic left kidney with pelviectasis Multiple nondistended fluid-filled small and large bowel loops consistent with gastroenteritis Right-sided MUSHROOM GROWER shunt tube noted Changes in the lower lumbar spine and sacrum consistent with patient''s history of spina bifida Electronically Signed: Godfrey Stallings MD at 12:39 EDT , Service support , ADDENDUM: 12/12/19 1336 Laboratory Data 12/12/19 12/12/19 12/12/19 10:40 10:40 10:45 WBC 6.3 RBC 4.99 Hgb 15.1 Hct 45.3 MCV 90.8 MCH 30.3 MCHC 33.3 RDW Std Deviation 39.9 RDW Coeff of Kim 12.2 Plt Count 242 MPV 9.8 Immature Gran % (Auto) 0.200 Neut % (Auto) 55.0 Lymph % (Auto) 32.6 Campbell % (Auto) 7.2 Eos % (Auto) 4.2 Baso % (Auto) 0.8 Absolute Neuts (auto) 3.5 Absolute Lymphs (auto) 2.04 Nucleated RBC % 0 Sodium 141 Potassium 3.8 Chloride 110 H Carbon Dioxide 27.0 Anion Gap 4 L BUN 15 Creatinine 0.81 Estim Creat Clear Calc 119.01 Est GFR (MDRD) Af Amer 139 Est GFR (MDRD) Non-Af 115 BUN/Creatinine Ratio 18.6 Glucose 82 Calcium 9.1 Total Bilirubin 0.20 AST 15 ALT 26 Alkaline Phosphatase 96 Total Protein 8.1 Albumin 4.0 Globulin 4.1 Albumin/Globulin Ratio 1.0 Lipase 87 Urine Color Yellow Urine Clarity Sl. Cloudy Urine pH 7.0 Ur Specific [place] 1.010 Urine Protein Negative Urine Glucose (UA) Normal Urine Ketones Negative Urine Occult Blood 25 H Urine Nitrite Positive H Urine Bilirubin Negative Urine Urobilinogen Normal Ur Leukocyte Esterase 100 H Urine RBC 0 SEEN Urine WBC 25-50 SEEN Ur Squamous Epith Cells 0-5 SEEN Urine Bacteria 2+ Urine Mucus 0 SEEN - Medical Decision Making Evaluated for multiple complaints including epigastric pain for the past 2 to 3 weeks as well as 1 week of lower back pain and pain with defecation. He states his bowel movements have been abnormal. On rectal exam patient is not have any signs of a pilonidal abscess or perirectal abscess. He does have mild tenderness to palpation on the rectal exam. Urinalysis does show findings concerning for inflammation versus infection. Differential includes cystitis versus prostatitis. Lab work is normal including CBC and CMP. Patient is given IV Protonix and GI cocktail which does seem to improve his epigastric pain. CT of the abdomen and pelvis does find loculated fluid collection of the left buttocks that is deep to the skin. There is no overlying skin changes on physical exam. I did discuss this with surgery on-call who is more suspicious of a hematoma than an abscess given his lack of white blood cell count, shift or pain in the area. She does not think this is related to his pain with defecation. Patient will be started on Bactrim to cover prostatitis versus cystitis and urine culture is pending. He will follow-up with surgery for his epigastric pain as well as this possible deep abscess. Patient verbalizes agreement understand this plan. He is given first dose of Bactrim in the emergency room. ED Disposition - Plan for ED Patient: Disposition: Home or Assisted Living Diagnosis: Epigastric pain, Prostatitis, acute, UTI (urinary tract infection), Abscess of buttock, left Instructions: ED Prostatitis, ED CYSTITIS Male Adult, ED Epigastric Pain [facility] Prescriptions: Smz/Tmp Ds [Bactrim Ds] 1 tab PO BID #28 tab Transmission Status: Pending to [email or web address] [facility] Omeprazole 20 mg PO DAILY #14 tablet. Transmission Status: Pending to [email or web address] Referrals: Jose Roberto Bradshaw [Primary Care Provider] - Sylvie Dee MD [STAFF PHYSICIAN] - Additional Instructions: I suspect your upper abdominal pain is from inflammation of your stomach. Stop taking Pepcid and start taking the new medication, omeprazole for this. The pain with pooping could either be a urinary tract infection or infection/inflammation of your prostate. You be placed on Bactrim which will treat both of those. The CT of your abdomen did show a fluid collection in your left buttocks concerning for a hematoma which is like a bruise versus an abscess. Please follow-up with Dr. Dee, surgery, in 1 to 2 weeks. She can evaluate you further for your abdominal pain as well as this possible abscess.
[2019-12-12] MEDS: 0.9% Normal Saline 1,000 ML 1000 ML IV (10:50)
[2019-12-12 10:52] LABS: Absolute Lymphocyte Count 2.04 X10^3/uL (0.83-4.51); Absolute Neutrophil Count 3.5 X10^3/uL (2.0-7.7); Basophil# 0.05 X10^3/uL; Basophil% 0.8 % (0-1); Eosinophil# 0.26 X10^3/uL; Eosinophils% 4.2 % (0-5); Hematocrit 45.3 % (40-54); Hemoglobin 15.1 g/dL (13.0-16.5); Lymphocyte # 2.04 X10^3/ul (4.0); Lymphocyte % 32.6 % (19-41); Mean Corp Hgb Conc 33.3 g/dL (32-36); Mean Corpuscular Hgb 30.3 pg (27.0-32.0); Mean Corpuscular Volume 90.8 fL (80-94); Mean Platelet Vol. 9.8 fl (6.2-12.0); Monocyte# 0.45 X10^3/uL; Monocyte% 7.2 % (0-10); NRBC Flagged by Analyzer 0 % (0-5); Neutrophil # 3.45 X10^3/uL (2.7-7.7); Platelet Count 242 K/mm3 (150-450); RBC Distribution Width CV 12.2 % (11.6-14.6); RBC Distribution Width SD 39.9 fl (35.1-43.9); Red Blood Count 4.99 M/mm3 (4.6-6.2); White Blood Count 6.3 K/mm3 (4.4-11.0)
[2019-12-12] MEDS: Morphine 4 MG/ML Syringe IV (10:52)
[2019-12-12] MEDS: DiphenhydrAMINE 50 MG/ML Syringe IV (10:52)
[2019-12-12 10:54] LABS: Mucous, Urine 0 SEEN /hpf (<or=2+); Red Blood Cells-Urine 0 SEEN /hpf (0-5)
[2019-12-12 10:56] LABS: Color, Urine Yellow (Yellow); Glucose, Dipstick Normal (Normal); Ketone-Dipstick Negative (Negative); Leukocyte Esterase-Dipstick 100 /ul (Negative); Nitrite-Dipstick Positive (Negative); Occult Blood-Urine 25 /ul (Negative); Protein-Dipstick Negative (Negative); Urine Bilirubin Dipstick Negative (Negative); Urine Clarity Sl. Cloudy (Clear); Urine Urobilinogen Normal (Normal)
[2019-12-12 11:01] LABS: Bacteria 2+ /hpf (None Seen); Squamous Epithelial Cells - UA 0-5 SEEN /hpf (0-5); White Blood Cells 25-50 SEEN /hpf (0-5)
[2019-12-12 11:07] LABS: AST(SGOT) 15 U/L (15-37); Alanine Aminotransfer ALT/SGPT 26 U/L (16-61); Alkaline Phosphatase 96 U/L (45-117); Anion Gap 4 (5-15); BUN 15 mg/dL (7-18); BUN/Creat Ratio 18.6 RATIO (10-20); Calcium,Total 9.1 mg/dL (8.5-10.1); Chloride 110 mmol/L (98-107); Creatinine, Serum 0.81 mg/dL (0.70-1.30); EST Glomerular Filtration Rate 115 mL/min (>60); Est Glom Filt Rate - Afr Amer 139 mL/min (>60); Estimated Creatinine Clearance 119.01 ml/min; Globulin 4.1 g/dL (2.2-4.2); Glucose 82 mg/dL (74-106); Lipase 87 U/L (73-393); Potassium 3.8 mmol/L (3.5-5.1); Protein, Total 8.1 g/dL (6.4-8.2); Sodium Level 141 mmol/L (136-145)
[2019-12-12 12:05] VITALS: RESP 18
[2019-12-12] MEDS: Mag Hydrox/Al Hydrox/Simeth 30 ML UDC PO (13:30)
[2019-12-12] MEDS: Smz/Tmp Ds Tablet 1 TABLET PO (15:23)
[2019-12-12 15:29] VITALS: BP 134/84; PULSE 88; RESP 16; O2SAT 99
== END 2019-12-12 15:31 | disposition home or self-care (01) ==
PROVIDERS: Emergency Provider Emergency Medicine
DX: R10.13 Epigastric pain (principal); N41.0 Acute prostatitis; N39.0 Urinary tract infection, site not specified; L02.31 Cutaneous abscess of buttock; Z79.899 Other long term (current) drug therapy; Q05.9 Spina bifida, unspecified; Z87.891 Personal history of nicotine dependence; Z98.2 Presence of cerebrospinal fluid drainage device; F32.9 Major depressive disorder, single episode, unspecified
CPT/HCPCS: 74177; 80053; 81001; 83690; 85025; 87077; 87086; 87088; 87186; 96361; 96365; 96375; 99284; J7030; J7050; Q9967; A4216

== ENCOUNTER → 2019-12-30 16:23 | Outpatient (CLI) | payer OTHER, SELFPAY ==
[2019-12-28 14:03] VITALS: BMI 25.0
--- NOTE | 2019-12-30 16:27 | US_ITS ---
HISTORY: Fluid collection in left gluteal area seen on CT. 10 images end to cine clips. Comparison study is a CT scan from December 12, 2019 Findings: Hypo-echoic tissue is present within the myofascial planes of the left upper thigh at the junction with the buttock. There is edema within the fat around the lesion. Margins are difficult to differentiate from the edema within the tissue. The aquaculture director measures it at 3.9 cm in transverse dimensions. Additional measurements were made, but I do not believe these are only of the fluid, these also include some fat. By my measurement, on the aquaculture director's image, this rim of fluid is 4 mm thick. There is hyperemia within the tissues around it. US/Other Unlisted US Procedure IMPRESSION: Approximately 4 cm x 4 mm fluid collection within the junction of the proximal left thigh and buttock fat and myofascial layers. This appears to be perhaps persistent abscess that appear to be larger on the December 12, 2019 CT scan. at 2248 Reported and signed by: Roberto Carlos Gilmore MD Electronically Signed: Roberto Carlos Gilmore MD at 22:47 EDT Tel , Service support ,
== END ==
PROVIDERS: Referring Provider Surgery; Visit Provider Surgery
DX: L02.31 Cutaneous abscess of buttock (principal)
CPT/HCPCS: 76999

== ENCOUNTER 2020-01-03 09:31 | Day surgery (SDC) | payer OTHER, SELFPAY ==
--- NOTE | 2019-12-28 03:29 | HP_ITS ---
Intake Vital Signs 12/28/19 Height 5 ft 7 in 12/28/19 Weight: 160 lb 12/28/19 BMI 25.0 12/28/19 BP 126/86 H 12/28/19 Blood Pressure Location Rt brachial 12/28/19 Position Sitting 12/28/19 Respiration 18 12/28/19 BMI 25.2 Intake Visit Reasons: Abscess, [facility] ER F/U Global Climate Change Analyst Required: No Is patient in pain?: Yes (epigastric pain) Allergies Iodine and Iodide Containing Produc Allergy (Verified 12/28/19 14:04) Rash acetaminophen [From Vicodin] Adverse Reaction (Verified 12/28/19 14:04) Chest tightness hydrocodone [From Vicodin] Adverse Reaction (Verified 12/28/19 14:04) Chest tightness Latex, Natural Rubber Adverse Reaction (Verified 12/28/19 14:04) Chest tightness Penicillins [PCN] Adverse Reaction (Verified 12/28/19 14:04) Rash Medications Smz/Tmp Ds [Bactrim Ds] 1 tab PO BID #28 tab 12/12/19 [Rx] Venlafaxine HCl [Venlafaxine HCl ER] 75 mg PO DAILY 12/12/19 [History Confirmed 12/12/19] pantoprazole 40 mg tablet,delayed release 40 mg PO DAILY #30 tab 12/28/19 [Rx Confirmed 12/28/19] PFSH Medical History Pressure ulcer of ischium, stage 3 (Acute) Ventricular shunt in place (Chronic) Spina bifida (Chronic) Surgical History History of bladder repair surgery (Acute) Previous back surgery (Acute) S/P HEALTHCARE RECRUITER shunt (Acute) Family History Father Diabetes Mother Hypertension Social History (Updated 12/28/19 @ 15:[address] Sylvie Dee MD) Smoking Status: Never smoker alcohol intake: never HPI HPI HPI: YESI BRANTLEY, is a 34 M who presents to the office today for HPI HPI Surgical H&P: Yes HPI: YESI BRANTLEY, is a 34 M who presents to the office today for follow-up from ER visit patient states he has been having epigastric pain for the last month it is constant patient states it is worse with any p.o. intake even water pain occurs immediately after eating. Patient has had a decreased appetite. Patient also states he has had had a small amount of bright red blood in his stool the last 2 or 3 days states he normally has bowel movements every other day denies any constipation recently or hard stools but did have constipation initially when the epigastric pain started about a month ago. Patient denies having hemorrhoids. Patient is never had an EGD or colonoscopy. He has a have a past medical history for spina bifida and does have a bladder augmentation that uses part of his bowels to increase the size of his bladder patient is unsure if small bowel or colon was done when he was little. CT abdomen pelvis done at the ER did show a fluid collection in the left gluteal area patient denies any pain there does state he does have some falls due to his spina bifida but does not remember any specific incident. Exam Const General: cooperative, comfortable, well developed Resp Effort & Inspection: normal respiratory effort Cardio Rate: regular rate GI Inspection: non-distended, incision (Well-healed previous midline due to bladder augmentation as well as total HEALTHCARE RECRUITER shunts placed in the past) Palpation: soft, tender (Right upper quadrant, epigastric, left upper quadrant, no guarding or rebound) Other: NAHUN deferred until colonoscopy Assessment & Plan Problems 1. Epigastric pain R10.13 2. BRBPR (bright red blood per rectum) K62.5 3. Hematoma of left lower extremity S80.12XA Plan Patient states he has been taking Pepcid twice daily as well as omeprazole 20 mg daily and still is having the epigastric pain no real change since ER visit on 12/11. We will try patient on Protonix 40 mg p.o. daily to see if this works any better as patient does have constant epigastric pain and immediately after eating. Patient CT abdomen pelvis from the ER did not show any obvious abnormalities in this area. I have discussed the above with the patient. I have offered the patient EGD and colonoscopy for evaluation. I have explained the risks/benefits of the procedure and described the procedure. I have discussed the risks with the patient, including but not limited to: infection, bleeding, perforation of the GI tract requiring emergency surgery, inability to complete the procedure, injury to any internal organs, complications of anesthesia, etc. - the patient understands and agrees to proceed. I have answered all the patient's questions to the patient's satisfaction and the patient has no further questions. The patient has been given instructions for the colon cleansing preparation. One day of clears, MiraLAX Dulcolax prep Patient's left gluteal fluid collection likely hematoma patient does have spina bifida does state that he does have falls he denies any pain at this area. Will check an ultrasound for follow-up. Patient was agreeable plan. Sylvie Dee M.D. Pager: [phone] [facility] [address] [place] [address], [facility], [address] [place] [address] Office: [phone] Orders Orders: Colonoscopy Today EGD Today Other BP Soft Tissue Today L02.31 Medications New: pantoprazole 40 mg PO DAILY 30 tabs 2RF Discontinued: omeprazole Discontinued Reason: Discontinued by PCP/other physicians 20 mg PO DAILY #14 0RF Plan Detail Follow Up We will schedule EGD and colonoscopy Coding Level of Care Code Off vis,new,level 3 Diagnoses Epigastric pain R10.13 BRBPR (bright red blood per rectum) K62.5 Hematoma of left lower extremity S80.12XA COVID (Procedure Consent) Procedure Criteria Procedure Criteria: Yes Elective The surgeon/proceduralist and patient have discussed in detail the risk of exposure to and/or potential harm posed by the COVID-19 virus with having a surgery/procedure at this time versus the risk of? delaying the surgery/procedure. It is not possible to know either the risk of delaying the surgery or procedure or chance of getting an infection with perfect accuracy, but a joint decision was made between the patient and the surgeon/proceduralist ?to proceed at this time with the scheduled surgery/procedure as indicated on the consent form. 12/28/19 5970 <Electronically signed by Sylvie Vivas am, MD> Date _ Sylvie Dee MD I have examined the patient the following changes are noted: Patient's ultrasound of the left gluteal area showed a small area of fluid collection again patient still has no pain at that site does state that he previously had nonhealing wound at that site, CT scan from 2017 did not show same, collection however patient thinks the wound was after that time where he was seen wound center. Patient states he still having the epigastric pain none today as he has not had anything to eat but he has been taking the Protonix.
[2019-12-28 14:03] VITALS: BMI 25.0
[2020-01-03] VITALS (9 sets, daily range): BP systolic 115–125; BP diastolic 80–94; PULSE 58–102; RESP 15–16; TEMP 36.3–36.6; O2SAT 96–100; BMI 25.2
[2020-01-03] MEDS: Lactated Ringers 1,000 ML 100 ML IV (10:11)
--- NOTE | 2020-01-03 11:00 | EGD_PTH ---
PATIENT: YEIS BRANTLEY LOC: EN U#:[id number] AGE/SX: 34/M ROOM: RE01/03/[address]: Dr. Sylvie Dee MD : 1985 BED: DIS: 01/03/2020 SPEC #: [id number] RECD: 01/03/20 14:06 STATUS: ROBBI BHANU #: [id number] ULISES: 01/03/20 11:[address]: Sylvie Dee DEPT: SURGICAL PATHOLOGY RECD BY: Nguyễn Flores ENTERED: 01/04/20 11:35 SP TYPE: EGD BIOPSY OT DR: MD Jose Roberto Cyr Tissues: A - Gastric mucous membrane B - Gastric mucous membrane Procedures: Special Stain Group II Surgery Specimen Level IV Alcian Blue/PAS (control) HEADER OPERATION: Colonoscopy, EGD ([facility] [place]) PRE-OP DIAGNOSIS: Epigastric pain; bright red blood per rectum TISSUE SUBMITTED: A - Antrum biopsy for histo and H. pylori, B - GE junction biopsy MICROSCOPIC DIAGNOSIS A. Gastric antrum, biopsy: Chronic gastritis. See comment. B. Gastroesophageal junction, biopsy: Chronic inflammation and focal changes of reflux. No evidence of intestinal metaplasia. See comment. AM:michael 01/05/20 COMMENT A. The results of immunohistochemistry for Helicobacter pylori will be reported separately ([id number]). B. Alcian blue/PAS stain with matched control supports the above diagnosis. MICROSCOPIC DESCRIPTION Slides are reviewed. GROSS DESCRIPTION A - Received in fixative is one container labeled with the patient's name and designated antrum biopsy. The specimen consists of one irregular fragment of light hernandez soft tissue that measures 0.5 x 0.2 x 0.1 cm. The specimen is totally submitted in one cassette. B - Received in fixative is one container labeled with the patient's name and designated GE junction biopsy. The specimen consists of one irregular fragment of light hernandez soft tissue that measures 0.4 x 0.2 x 0.1 cm. The specimen is totally submitted in one cassette. / SJ:michael 01/04/20 TC:3 CPT: 51698 x2, 08766
--- NOTE | 2020-01-03 11:00 | IMM_PTH ---
PATIENT: YESI BRANTLEY LOC: [facility] U#:[id number] AGE/SX: 34/M ROOM: RE01/03/[address]: Dr. Sylvie Dee MD : 1985 BED: DIS: 01/03/2020 SPEC #: [id number] RECD: 01/04/20 10:02 STATUS: ROBBI REQ #: [id number] ULISES: 01/03/20 11:[address]: Sylvie Dee DEPT: IMMUNOHISTOCHEMISTRY RECD BY: Viridiana Field ENTERED: 01/04/20 10:02 SP TYPE: IMMUNO OTHR DR: MD Jose Roberto Cyr Tissues: A - Stomach, NOS Procedures: H Pylori (initial) PHYSICIAN & INSTITUTION [place] [id number] SPECIMEN INFORMATION: Tissue Source: A - Antrum biopsy Clinical Info: Epigastric pain, bright red blood per rectum Specimen Number: [id number] CPT code: 16205 METHODOLOGY: Deparaffinized sections of prefer/formalin-fixed tissue or PAP/DQ stained slides are incubated with monoclonal/polyclonal antibodies/oligonucleotide probes. Localization is made via biotin free immunoperoxidase method. Appropriate controls are performed and reacted as expected. Results on target cell population are indicated in the following table: RESULTS: ANTIBODY / CLONE RESULT Block A H Pylori (polyclonal) negative These tests were developed and their performance characteristics determined by [facility]. They may not have been cleared or approved by the U.S. Food and Drug Administration. The FDA has determined that such clearance or approval is not necessary. INTERPRETATION: Antrum biopsy: Negative for Helicobacter pylori organisms. AM:michael 01/05/20
--- NOTE | 2020-01-03 11:57 | OP.COLON_ITS ---
Patient Name: Yoandy Ureña Procedure Date: 01/03/2020 11:32 AM Date of : 1985 Age: 34 Procedure: Colonoscopy Indications: Rectal bleeding Providers: Sylvie Dee MD Referring MD: Jose Roberto Bradshaw Medicines: Monitored Anesthesia Care Patient Profile: This is a 34 year old male. Last Colonoscopy: none. The patient's first colonoscopy is today. Complications: No immediate complications. Procedure: Pre-Anesthesia Assessment: - Prior to the procedure, a History and Physical was performed, and patient medications and allergies were reviewed. The patient's tolerance of previous anesthesia was also reviewed. The risks and benefits of the procedure and the sedation options and risks were discussed with the patient. All questions were answered, and informed consent was obtained. Prior Anticoagulants: The patient has taken no previous anticoagulant or antiplatelet agents. ASA Grade Assessment: Per anesthesia. After reviewing the risks and benefits, the patient was deemed in satisfactory condition to undergo the procedure. After I obtained informed consent, the scope was passed under direct vision. Throughout the procedure, the patient's blood pressure, pulse, and oxygen saturations were monitored continuously. The pediatric colonoscope was introduced through the anus and advanced to the descending colon. The colonoscopy was performed with difficulty due to poor bowel prep with stool present. The patient tolerated the procedure well. The quality of the bowel preparation was poor. Scope In: 11:34:07 AM Scope Out: 11:44:45 AM Total Procedure Duration Time 0 hours 10 minutes 38 seconds Findings: Semi-liquid semi-solid stool was found in the rectum, in the sigmoid colon and in the descending colon, precluding visualization. Impression: - Preparation of the colon was poor. - Stool in the rectum, in the sigmoid colon and in the descending colon. - No specimens collected. Recommendation: - Repeat colonoscopy at appointment to be scheduled because the bowel preparation was poor. - Continue present medications. Procedure Code(s): --- Professional --- 31422, 53, Colonoscopy, flexible; diagnostic, including collection of specimen(s) by brushing or washing, when performed (separate procedure) Diagnosis Code(s): --- Professional --- K62.5, Hemorrhage of anus and rectum CPT copyright 2017 [employer]. All rights reserved. The codes documented in this report are preliminary and upon pellet mill operator review may be revised to meet current compliance requirements. MD Sylvie Ross MD 01/03/2020 11:56:50 AM This report has been signed electronically. Number of Addenda: 0 Note Initiated On: 01/03/2020 11:32 AM
--- NOTE | 2020-01-03 11:57 | OP.CCLET_ITS ---
01/03/2020 Jose Roberto Bradshaw Re : Colonoscopy procedure for Yoandy Ureañ Deawalter Bradshaw This procedure was performed on Friday, January 03, 2020. My impressions and recommendations are as follows: Impressions : - Preparation of the colon was poor. - Stool in the rectum, in the sigmoid colon and in the descending colon. - No specimens collected. Recommendations : - Repeat colonoscopy at appointment to be scheduled because the bowel preparation was poor. - Continue present medications. My findings are described in the full procedure note, which is enclosed. If I can be of further assistance, please feel free to contact me at Doctor phone number(s): , Work: . Sincerely, MD Sylvie Ross MD 01/03/2020 11:56:50 AM This report has been signed electronically.
--- NOTE | 2020-01-03 12:01 | OP.EGD_ITS ---
Patient Name: Yoandy Ureña Procedure Date: 01/03/2020 11:14 AM Date of : 1985 Age: 34 Procedure: Upper GI endoscopy Indications: Epigastric abdominal pain Providers: Sylvie Dee MD Referring MD: Jose Roberto Bradshaw Medicines: Monitored Anesthesia Care Patient Profile: This is a 34 year old male. Complications: No immediate complications. Procedure: Pre-Anesthesia Assessment: - Prior to the procedure, a History and Physical was performed, and patient medications and allergies were reviewed. The patient's tolerance of previous anesthesia was also reviewed. The risks and benefits of the procedure and the sedation options and risks were discussed with the patient. All questions were answered, and informed consent was obtained. Prior Anticoagulants: The patient has taken no previous anticoagulant or antiplatelet agents. ASA Grade Assessment: Per anesthesia. After reviewing the risks and benefits, the patient was deemed in satisfactory condition to undergo the procedure. After obtaining informed consent, the endoscope was passed under direct vision. Throughout the procedure, the patient's blood pressure, pulse, and oxygen saturations were monitored continuously. The Endoscope was introduced through the mouth, and advanced to the second part of duodenum. The upper GI endoscopy was accomplished without difficulty. The patient tolerated the procedure well. Scope In: 11:26:49 AM Scope Out: 11:32:21 AM Total Procedure Duration Time 0 hours 5 minutes 32 seconds Findings: The Z-line was variable and was found 40 cm from the incisors. Biopsies were taken with a cold forceps for histology. Mildly erythematous mucosa was found in the gastric antrum. Biopsies were taken with a cold forceps for histology. Biopsies were taken with a cold forceps for Helicobacter pylori cultures. Mild inflammation was found in the gastric body. The examined duodenum was normal. Impression: - Z-line variable, 40 cm from the incisors. Biopsied. - Erythematous mucosa in the antrum. Biopsied. - Gastritis. - Normal examined duodenum. Recommendation: - Await pathology results. - Discharge patient to home. - Use Protonix (pantoprazole) 40 mg IV x1 today. - Use Protonix (pantoprazole) 40 mg PO daily. - Continue present medications. Procedure Code(s): --- Professional --- 27103, Esophagogastroduodenoscopy, flexible, transoral; with biopsy, single or multiple Diagnosis Code(s): --- Professional --- K22.8, Other specified diseases of esophagus K31.89, Other diseases of stomach and duodenum K29.70, Gastritis, unspecified, without bleeding R10.13, Epigastric pain CPT copyright 2017 [employer]. All rights reserved. The codes documented in this report are preliminary and upon scientific aide review may be revised to meet current compliance requirements. MD Sylvie Ross MD 01/03/2020 12:00:58 PM This report has been signed electronically. Number of Addenda: 0 Note Initiated On: 01/03/2020 11:14 AM
--- NOTE | 2020-01-03 12:01 | OP.CCLET_ITS ---
01/03/2020 Jose Roberto Bradshaw Re : Upper GI endoscopy procedure for Yoandy Ureña Myra Bradshaw This procedure was performed on Friday, January 03, 2020. My impressions and recommendations are as follows: Impressions : - Z-line variable, 40 cm from the incisors. Biopsied. - Erythematous mucosa in the antrum. Biopsied. - Gastritis. - Normal examined duodenum. Recommendations : - Await pathology results. - Discharge patient to home. - Use Protonix (pantoprazole) 40 mg IV x1 today. - Use Protonix (pantoprazole) 40 mg PO daily. - Continue present medications. My findings are described in the full procedure note, which is enclosed. If I can be of further assistance, please feel free to contact me at Doctor phone number(s): , Work: . Sincerely, MD Sylvie Ross MD 01/03/2020 12:00:58 PM This report has been signed electronically.
== END 2020-01-03 13:39 | disposition home or self-care (01) ==
LOC: EN 09:34 → AC 09:37
PROVIDERS: Anesthesiology; Referring Provider Family Medicine; Visit Provider Surgery
PROC: 0DJD8ZZ Inspection of Lower Intestinal Tract, Via Natural or Artificial Opening Endoscopic (ICD-10-PCS; CPT 45378; principal; 2020-01-03 10:55)
DX: K29.50 Unspecified chronic gastritis without bleeding (principal); Z53.8 Procedure and treatment not carried out for other reasons; K31.89 Other diseases of stomach and duodenum; K22.8 Other specified diseases of esophagus; K21.9 Gastro-esophageal reflux disease without esophagitis; R10.13 Epigastric pain; Z11.59 Encounter for screening for other viral diseases; Q05.9 Spina bifida, unspecified; F32.9 Major depressive disorder, single episode, unspecified; F41.9 Anxiety disorder, unspecified; Z79.899 Other long term (current) drug therapy; Z87.891 Personal history of nicotine dependence
CPT/HCPCS: 43239; 45330; 87635; 88305; 88313; 88342; G2023; J7120; J2405; U0003

== ENCOUNTER 2020-01-04 05:43 | Day surgery (SDC) | payer OTHER, SELFPAY ==
[2020-01-03 09:54] VITALS: BMI 25.2
[2020-01-04 06:23] VITALS: BP 133/90; PULSE 82; RESP 16; TEMP 36.7; O2SAT 99; BMI 25.4
[2020-01-04] MEDS: Lactated Ringers 1,000 ML 100 ML IV (06:43)
--- NOTE | 2020-01-04 06:51 | HP.PCM_ITS ---
History and Physical Date of Admission: 01/04/20 History and Physical 12/28/19 0329 MR#: [id number] Acct: [id number] Name: YESI BRANTLEY Rep #:[id number] : 1985 34 From: Sylvie Dee MD PCP: Jose Roberto Bradshaw Status:[facility] Location: [place] [address] Intake Vital Signs 12/28/19 Height 5 ft 7 in 12/28/19 Weight: 160 lb 12/28/19 BMI 25.0 12/28/19 BP 126/86 H 12/28/19 Blood Pressure Location Rt brachial 12/28/19 Position Sitting 12/28/19 Respiration 18 12/28/19 BMI 25.2 Intake Visit Reasons: Abscess, [facility] ER F/U [employer] Required: No Is patient in pain?: Yes (epigastric pain) Allergies Iodine and Iodide Containing Produc Allergy (Verified 12/28/19 14:04) Rash acetaminophen [From Vicodin] Adverse Reaction (Verified 12/28/19 14:04) Chest tightness hydrocodone [From Vicodin] Adverse Reaction (Verified 12/28/19 14:04) Chest tightness Latex, Natural Rubber Adverse Reaction (Verified 12/28/19 14:04) Chest tightness Penicillins [PCN] Adverse Reaction (Verified 12/28/19 14:04) Rash Medications Smz/Tmp Ds [Bactrim Ds] 1 tab PO BID #28 tab 12/12/19 [Rx] Venlafaxine HCl [Venlafaxine HCl ER] 75 mg PO DAILY 12/12/19 [History Confirmed 12/12/19] pantoprazole 40 mg tablet,delayed release 40 mg PO DAILY #30 tab 12/28/19 [Rx Confirmed 12/28/19] PFSH Medical History Pressure ulcer of ischium, stage 3 (Acute) 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 Sylvie Dee MD) Smoking Status: Never smoker alcohol intake: never HPI HPI HPI: YESI BRANTLEY, is a 34 M who presents to the office today for HPI HPI Surgical H&P: Yes HPI: YESI BRANTLEY, is a 34 M who presents to the office today for follow-up from ER visit patient states he has been having epigastric pain for the last month it is constant patient states it is worse with any p.o. intake even water pain occurs immediately after eating. Patient has had a decreased appetite. Patient also states he has had had a small amount of bright red blood in his stool the last 2 or 3 days states he normally has bowel movements every other day denies any constipation recently or hard stools but did have constipation initially when the epigastric pain started about a month ago. Patient denies having hemorrhoids. Patient is never had an EGD or colonoscopy. He has a have a past medical history for spina bifida and does have a bladder augmentation that uses part of his bowels to increase the size of his bladder patient is unsure if small bowel or colon was done when he was little. CT abdomen pelvis done at the ER did show a fluid collection in the left gluteal area patient denies any pain there does state he does have some falls due to his spina bifida but does not remember any specific incident. Exam Const General: cooperative, comfortable, well developed Resp Effort & Inspection: normal respiratory effort Cardio Rate: regular rate GI Inspection: non-distended, incision (Well-healed previous midline due to bladder augmentation as well as total I[employer] shunts placed in the past) Palpation: soft, tender (Right upper quadrant, epigastric, left upper quadrant, no guarding or rebound) Other: NAHUN deferred until colonoscopy Assessment & Plan Problems 1. Epigastric pain R10.13 2. BRBPR (bright red blood per rectum) K62.5 3. Hematoma of left lower extremity S80.12XA Plan Patient states he has been taking Pepcid twice daily as well as omeprazole 20 mg daily and still is having the epigastric pain no real change since ER visit on 12/11. We will try patient on Protonix 40 mg p.o. daily to see if this works any better as patient does have constant epigastric pain and immediately after eating. Patient CT abdomen pelvis from the ER did not show any obvious abnormalities in this area. I have discussed the above with the patient. I have offered the patient EGD and colonoscopy for evaluation. I have explained the risks/benefits of the procedure and described the procedure. I have discussed the risks with the patient, including but not limited to: infection, bleeding, perforation of the GI tract requiring emergency surgery, inability to complete the procedure, injury to any internal organs, complications of anesthesia, etc. - the patient understands and agrees to proceed. I have answered all the patient's questions to the patient's satisfaction and the patient has no further questions. The patient has been given instructions for the colon cleansing preparation. One day of clears, MiraLAX Dulcolax prep Patient's left gluteal fluid collection likely hematoma patient does have spina bifida does state that he does have falls he denies any pain at this area. Will check an ultrasound for follow-up. Patient was agreeable plan. Sylvie Dee M.D. Pager: [phone] [facility] [address] [place] [address], [facility], [address] [place] [address] Office: [phone] Orders Orders: Colonoscopy Today EGD Today Other BP Soft Tissue Today L02.31 Medications New: pantoprazole 40 mg PO DAILY 30 tabs 2RF Discontinued: omeprazole Discontinued Reason: Discontinued by PCP/other physicians 20 mg PO DAILY #14 0RF Plan Detail Follow Up We will schedule EGD and colonoscopy Coding Level of Care Code Off vis,new,level 3 Diagnoses Epigastric pain R10.13 BRBPR (bright red blood per rectum) K62.5 Hematoma of left lower extremity S80.12XA COVID (Procedure Consent) Procedure Criteria Procedure Criteria: Yes Elective The surgeon/proceduralist and patient have discussed in detail the risk of exposure to and/or potential harm posed by the COVID-19 virus with having a surgery/procedure at this time versus the risk of? delaying the surgery/procedure. It is not possible to know either the risk of delaying the surgery or procedure or chance of getting an infection with perfect accuracy, but a joint decision was made between the patient and the surgeon/proceduralist ?to proceed at this time with the scheduled surgery/procedure as indicated on the consent form. 12/28/19 5650 <Electronically signed by Sylvie Vivas am, MD> Date _ Sylvie Dee MD I have examined the patient the following changes are noted: Patient's ultrasound of the left gluteal area showed a small area of fluid collection again patient still has no pain at that site does state that he previously had nonhealing wound at that site, CT scan from 2017 did not show same, collection however patient thinks the wound was after that time where he was seen wound center. Patient states he still having the epigastric pain none today as he has not had anything to eat but he has been taking the Protonix. 01/03/20 1038 <Electronically signed by Sylvie Vivas am, MD> Date: Time: __ Sylvie Dee MD I have examined the patient the following changes are noted: Patient had a poor prep yesterday with some solid stool unable to visualize much of the colon if no did go to the descending colon. Patient did redo the prep and reports better prep this morning. Patient states last time he had bright red blood per rectum was about a week ago and it was multiple times. Patient denies constipation prior. Sylvie Dee M.D. Pager: [phone] [facility] [address] [place] [address], [facility], [address] [place] [address] Office: [phone]
[2020-01-04 07:52] VITALS: BP 123/82; BP 133/90; PULSE 96; RESP 16; TEMP 36.2; O2SAT 100
--- NOTE | 2020-01-04 07:54 | OP.CCLET_ITS ---
01/04/2020 Jose Roberto Bradshaw Re : Colonoscopy procedure for Yoandy Ureña [place] This procedure was performed on Saturday, January 04, 2020. My impressions and recommendations are as follows: Impressions : - Hemorrhoids found on perianal exam. - Internal hemorrhoids. - The examination was otherwise normal. - No specimens collected. Recommendations : - Discharge patient to home. - Resume previous diet. - Continue present medications. - Repeat colonoscopy at age 45/50 (depends if the age changes from 50) for annual screening. My findings are described in the full procedure note, which is enclosed. If I can be of further assistance, please feel free to contact me at Doctor phone number(s): , Work: . Sincerely, MD Sylvie Ross MD 01/04/2020 7:53:30 AM This report has been signed electronically.
--- NOTE | 2020-01-04 07:54 | OP.COLON_ITS ---
Patient Name: Yoandy Ureña Procedure Date: 01/04/2020 6:49 AM Date of : 1985 Age: 34 Procedure: Colonoscopy Indications: Rectal bleeding Providers: Sylvie Dee MD Medicines: Monitored Anesthesia Care Patient Profile: This is a 34 year old male. Last Colonoscopy: yesterday attempted but poor prep. Complications: No immediate complications. Procedure: Pre-Anesthesia Assessment: - Prior to the procedure, a History and Physical was performed, and patient medications and allergies were reviewed. The patient's tolerance of previous anesthesia was also reviewed. The risks and benefits of the procedure and the sedation options and risks were discussed with the patient. All questions were answered, and informed consent was obtained. Prior Anticoagulants: The patient has taken no previous anticoagulant or antiplatelet agents. ASA Grade Assessment: Per anesthesia. After reviewing the risks and benefits, the patient was deemed in satisfactory condition to undergo the procedure. After I obtained informed consent, the scope was passed under direct vision. Throughout the procedure, the patient's blood pressure, pulse, and oxygen saturations were monitored continuously. The Colonoscope was introduced through the anus and advanced to the cecum, identified by the appendiceal orifice, ileocecal valve and palpation. The colonoscopy was performed without difficulty. The patient tolerated the procedure well. The quality of the bowel preparation was good. Scope In: 7:00:57 AM Scope Withdrawal Time 0 hours 33 minutes 19 seconds Scope Out: 7:44:54 AM Total Procedure Duration Time 0 hours 43 minutes 57 seconds Findings: Hemorrhoids were found on perianal exam. Unable to intubate ileocecal valve after multiple attempts, was able to see just inside the opening, which appeared normal. Internal hemorrhoids were found. The hemorrhoids were Grade I (internal hemorrhoids that do not prolapse). The exam was otherwise without abnormality. Impression: - Hemorrhoids found on perianal exam. - Internal hemorrhoids. - The examination was otherwise normal. - No specimens collected. Recommendation: - Discharge patient to home. - Resume previous diet. - Continue present medications. - Repeat colonoscopy at age 45/50 (depends if the age changes from 50) for annual screening. Procedure Code(s): --- Professional --- 16763, Colonoscopy, flexible; diagnostic, including collection of specimen(s) by brushing or washing, when performed (separate procedure) Diagnosis Code(s): --- Professional --- K64.0, First degree hemorrhoids K62.5, Hemorrhage of anus and rectum CPT copyright 2017 [employer]. All rights reserved. The codes documented in this report are preliminary and upon arm rest builder review may be revised to meet current compliance requirements. MD Sylvie Ross MD 01/04/2020 7:53:30 AM This report has been signed electronically. Number of Addenda: 0 Note Initiated On: 01/04/2020 6:49 AM
[2020-01-04 07:56] VITALS: BP 126/66; BP 133/90; PULSE 95; RESP 16; O2SAT 100
[2020-01-04 08:02] VITALS: BP 117/79; BP 133/90; PULSE 96; RESP 16; O2SAT 100
[2020-01-04 08:03] VITALS: BP 120/81; BP 133/90; PULSE 89; RESP 16; TEMP 36.2; O2SAT 100
[2020-01-04 08:38] VITALS: BP 133/90
== END 2020-01-04 08:39 | disposition home or self-care (01) ==
LOC: EN 05:45 → AC 05:45
PROVIDERS: Visit Provider Surgery
PROC: 0DJD8ZZ Inspection of Lower Intestinal Tract, Via Natural or Artificial Opening Endoscopic (ICD-10-PCS; CPT 45378; principal; 2020-01-04 06:55)
DX: K62.5 Hemorrhage of anus and rectum (principal); K64.0 First degree hemorrhoids; K64.8 Other hemorrhoids; K21.9 Gastro-esophageal reflux disease without esophagitis; F32.9 Major depressive disorder, single episode, unspecified; F41.9 Anxiety disorder, unspecified; Z79.899 Other long term (current) drug therapy; Z87.891 Personal history of nicotine dependence
CPT/HCPCS: 45378; J7120; J2405

== ENCOUNTER → 2020-03-06 | Outpatient (CLI) | payer OTHER, SELFPAY | END | disposition home or self-care (01) | LOC: MTDU 17:03 | PROVIDERS: Referring Provider Family Medicine; Visit Provider Family Medicine | DX: Z20.828 Contact with and (suspected) exposure to other viral communicable diseases (principal) | CPT/HCPCS: 87635; C9803; U0003 ==

== ENCOUNTER 2021-04-22 11:33 | Emergency (ER) | payer OTHER, SELFPAY ==
[2021-04-22 11:34] VITALS: BP 145/87; PULSE 79; RESP 18; TEMP 36.7; O2SAT 100; BMI 27.4
--- NOTE | 2021-04-22 12:37 | US_ITS ---
STUDY: SCROTUM ULTRASOUND REASON FOR EXAM: Male, 35 years old. One-day history of right testicular pain. TECHNIQUE: Ultrasound evaluation of the scrotum was performed with color Doppler and static lucero-scale imaging. COMPARISON: None. FINDINGS: RIGHT TESTICLE INTRATESTICULAR: There is a normal size of the right testicle. The right testicle measures 3.9 cm x 2.3 cm x 1.5 cm. There is a heterogeneous echotexture. There is normal arterial and normal venous vascularity. There is no demonstrated right testicular mass or cyst. EXTRATESTICULAR: The epididymis is normal in size. The epididymis head measures 1.2 cm x 1.6 cm x 0.8 cm. There is increased (hyperemic) vascularity of the epididymis. 2 epididymal cysts are seen. The larger measures 3 mm x 3 mm x 2 mm. There is a moderate size hydrocele. There are prominent extratesticular veins consistent with a varicocele. There is no demonstrated extratesticular mass or cyst. LEFT TESTICLE INTRATESTICULAR: There is a normal size of the left testicle. The left testicle measures 4.1 cm x 2.6 cm x 2.1 cm. There is a homogenous echotexture. There is normal arterial and normal venous vascularity. There is no demonstrated left testicular mass or cyst. EXTRATESTICULAR: The epididymis is normal in size. The epididymis head measures 1.1 cm x 1.3 cm x 0.6 cm. There is normal vascularity of the epididymis. There is no demonstrated epididymal cystic structure. There is a small hydrocele. There are prominent extratesticular veins consistent with a varicocele. There is no demonstrated extratesticular mass or cyst. US/Testicular with Arterial Flow IMPRESSION: Bilateral hydroceles right greater than left. Bilateral varicoceles. Increased vascularity of the right epididymis with 2 small epididymal cysts. Findings are in keeping with acute right epididymitis. Electronically Signed: Artur Rosenberg MD at 13:57 EDT , Service support ,
--- NOTE | 2021-04-22 12:51 | EDS_ITS ---
HPI History of Present Illness Chief Complaint: Male Pain/Injury Informant: patient Narrative Narrative: Patient presents with some soreness and swelling of his right testicle. He states this started yesterday morning approximately 30 hours ago. Its been slow onset. It was just a little bit yesterday. It is slowly gotten a little more. No fevers chills nausea vomiting. He feels fine. He does have a history of spina bifida and self catheterizes. But there is been no change or trauma or difficulty with this. He also stated that since he is self catheterizes and has had 2 bladder surgeries, his urine is always a bit cloudy and looks infected. However, he has no symptoms of infection. He has no trauma to the area. He did have hernia surgery when he was an infant about 6 weeks old but does not know any more details. He has no abdominal pain. Other than the right testicle he feels perfectly fine and at his baseline. [facility] Medical History Pressure ulcer of ischium, stage 3 Spina bifida Ventricular shunt in place Home Medications venlafaxine 75 mg PO QHS 12/12/19 [History Last Taken 12/11/19] doxycycline monohydrate 100 mg PO BID #20 cap 04/22/21 [Rx Last Taken Unknown] naproxen 500 mg PO BID #14 tab 04/22/21 [Rx Last Taken Unknown] Allergy/AdvReac Type Severity Reaction Status Date / Time Iodinated Contrast Media Allergy Rash Verified 04/22/21 12:08 [CONTRASTS] acetaminophen [From Vicodin] AdvReac Chest Verified 04/22/21 12:08 tightness hydrocodone [From Vicodin] AdvReac Chest Verified 04/22/21 12:08 tightness Latex, Natural Rubber AdvReac Chest Verified 04/22/21 12:08 tightness Penicillins [PCN] AdvReac Rash Verified 04/22/21 12:08 IODINE CONTRAST Allergy Rash Uncoded 04/22/21 12:08 Family History Father Diabetes Mother Hypertension Surgical History History of bladder repair surgery Previous back surgery S/P [employer] shunt Social History Smoking Status: Never smoker alcohol intake: never ROS ROS ED Constitutional Constitutional ED: Denies chills or fever(s) Cardiovascular Cardiovascular: Denies chest pain or palpitations Respiratory/Chest Respiratory/Chest: Denies cough or dyspnea Gastrointestinal Gastrointestinal: Denies abdominal pain, constipation, diarrhea, melena, nausea or vomiting Genitourinary Genitourinary ED: Reports other Details: See history of present illness. ; Denies dysuria, hematuria or urinary frequency Musculoskeletal Musculoskeletal: Denies back pain Integumentary Denies rash Neurologic Neurologic: Denies headache(s) Endocrine Endocrinology: Denies polydipsia or polyuria Hematologic/Lymphatic Hematologic/Lymphatic: Denies easy bleeding or easy bruising Allergic/Immunologic Allergic/Immunologic ED: Denies urticaria EXAM Physical Exam Const Vital Signs: 04/22/21 11:34 04/22/21 15:01 04/22/21 15:15 Temperature 98.1 F Temperature Source Temporal Pulse Rate 79 78 80 Respiratory Rate 18 18 16 Blood Pressure 145/87 H 114/64 Blood Pressure Mean 106 Pulse Ox 100 99 99 Oxygen Delivery Method Room Air Room Air Positive well nourished and well developed General Appearance ED: well developed and NAD HEENT normocephalic and atraumatic Eyes General Eye ED: Negative for pale conjunctiva or scleral icterus Neck no JVD Resp normal respiratory effort and clear to auscultation bilaterally Auscultation: Negative for rales, rhonchi or wheezes Cardio regular rate, regular rhythm and no murmurs GI non-tender, non-distended and no masses Auscultation: normoactive bowel sounds Palpation: soft Rectal Exam: Negative for tenderness no CVA tenderness Narrative: Patient uncircumcised. Penis is normal. There is no hernia to either cough or strain. No pain with that exam. Left testicle is normal. Right does appear to be somewhat enlarged. Cremasteric reflex is normal. There is mild tenderness but not markedly so. There is no sores or lesions. No erythema. No lymphadenopathy. Penis: normal penis and uncircumcised Meatus: meatus normal Extremity normal to inspection Extremity Narrative: Braces are in place. No sinus swelling or infections. Neuro oriented x3 Sensorium / Orientation: alert Psych mental status grossly normal Skin Lesions: no lesions Rashes: no rashes MDM MDM MDM Narrative Medical decision making narrative: Urine does show some signs of a UTI. He states this is normal but it is still concerning. The ultrasound shows bilateral hydroceles and varicoceles. There is also signs of right epididymitis. I will treat with doxycycline. He is not allergic to this. We will start nonsteroidals for pain. I will send urine for culture. He will use supportive underwear. Ice on the area. Return with worsening pain, vomiting, fevers, redness, swelling or other concerns. Lab Data Attestation: I reviewed the patient's lab results. Labs: Laboratory Results - last 24 hr 04/22/21 12:40 Urine Color Yellow Urine Clarity Cloudy Urine pH 7.0 Ur Specific [place] 1.010 Urine Protein 30 H Urine Glucose (UA) Normal Urine Ketones Negative Urine Occult Blood 50 H Urine Nitrite Positive H Urine Bilirubin Negative Urine Urobilinogen Normal Ur Leukocyte Esterase 500 H Urine RBC 5-10 SEEN Urine WBC 50-100 SEEN Ur Squamous Epith Cells 0-5 SEEN Urine Bacteria 2+ Urine Mucus 2+ Radiography Diagnostic Testing: Clinical Impression(s) from Imaging Studies Testicular Ultrasound 04/22/21 12:37 IMPRESSION: Bilateral hydroceles right greater than left. Bilateral varicoceles. Increased vascularity of the right epididymis with 2 small epididymal cysts. Findings are in keeping with acute right epididymitis. Electronically Signed: Artur Rosenberg MD at 13:57 EDT , Service support , Discharge Plan Triage Chief Complaint: Male Pain/Injury ED Provider: Casey Bagley Dx/Rx/DC Orders Clinical Impression: Acute UTI, Spina bifida, Acute epididymitis Instructions: ED Epididymitis Prescriptions: New doxycycline monohydrate 100 MG capsule 100 mg PO BID Qty: 20 RF: 0 naproxen 500 MG tablet 500 mg PO BID Qty: 14 RF: 0 No Action venlafaxine 75 MG capsule,extended release 24hr 75 mg PO QHS RF: 0 Primary Care Provider: Jose Roberto Bradshaw Referrals: Jose Roberto Bradshaw [Primary Care Provider] - 3-5 Days if not improving Disposition Disposition: Home, Self Care Discharge Date/Time: 04/22/21 15:16
[2021-04-22 12:59] LABS: Color, Urine Yellow (Yellow); Glucose, Dipstick Normal (Normal); Ketone-Dipstick Negative (Negative); Leukocyte Esterase-Dipstick 500 /ul (Negative); Nitrite-Dipstick Positive (Negative); Occult Blood-Urine 50 /ul (Negative); Protein-Dipstick 30 mg/dl (Negative); Urine Bilirubin Dipstick Negative (Negative); Urine Clarity Cloudy (Clear); Urine Urobilinogen Normal (Normal)
[2021-04-22 13:08] LABS: Bacteria 2+ /hpf (None Seen); Mucous, Urine 2+ /hpf (<or=2+); Red Blood Cells-Urine 5-10 SEEN /hpf (0-5); Squamous Epithelial Cells - UA 0-5 SEEN /hpf (0-5); White Blood Cells 50-100 SEEN /hpf (0-5)
[2021-04-22 15:01] VITALS: PULSE 78; RESP 18; O2SAT 99
[2021-04-22] MEDS: Naproxen 375 MG Tablet PO (15:09)
[2021-04-22 15:15] VITALS: BP 114/64; PULSE 80; RESP 16; O2SAT 99
== END 2021-04-22 15:16 | disposition home or self-care (01) ==
PROVIDERS: Emergency Provider Emergency Medicine
DX: N39.0 Urinary tract infection, site not specified (principal); Q05.9 Spina bifida, unspecified; N45.1 Epididymitis; I86.1 Scrotal varices; N43.3 Hydrocele, unspecified; Z79.1 Long term (current) use of non-steroidal anti-inflammatories (NSAID); Z98.2 Presence of cerebrospinal fluid drainage device
CPT/HCPCS: 76870; 81001; 87077; 87086; 87088; 87186; 93976; 99284; P9612

== ENCOUNTER 2022-04-22 11:15 | Emergency (ER) | payer OTHER, SELFPAY ==
[2022-04-22 11:16] VITALS: BP 146/97; PULSE 98; RESP 20; TEMP 37; O2SAT 98; BMI 30.4
--- NOTE | 2022-04-22 11:20 | EDS_ITS ---
HPI History of Present Illness Chief Complaint: Chest Pain Narrative Narrative: 36-year-old male here for chest pain. Patient states he has had chest heaviness since 10 AM. Patient states pain radiates to left arm. Is constant, severe without alleviating factors. The pain is nonexertional. Nonpleuritic. The patient denies recent surgery in the last 4 weeks or immobilization in the last 3 days, denies previous diagnosis of DVT or PE, hemoptysis, unilateral leg swelling or malignancy with treatment the last 6 months. No estrogen use noted.. Patient denies sudden onset of pain, no tearing sensation, no migratory symptoms, no new numbness, weakness or loss of sensation. Patient denies family history or personal history of Marfan syndrome or Wojciech-Danlos Old chart reviewed No recent Stress echocardiogram noted in the chart [facility] Medical History Pressure ulcer of ischium, stage 3 Spina bifida Ventricular shunt in place Home Medications venlafaxine 75 mg capsule,extended release 24 hr 75 mg PO QHS mood 12/12/19 [History Last Taken 12/11/19] doxycycline monohydrate 100 mg capsule 100 mg PO BID #20 caps 04/22/21 [Rx Last Taken Unknown] naproxen 500 mg tablet 500 mg PO BID #14 tabs 04/22/21 [Rx Last Taken Unknown] Allergy/AdvReac Type Severity Reaction Status Date / Time Iodinated Contrast Media Allergy Rash Verified 04/22/22 11:19 [CONTRASTS] acetaminophen [From Vicodin] AdvReac Chest Verified 04/22/22 11:19 tightness hydrocodone [From Vicodin] AdvReac Chest Verified 04/22/22 11:19 tightness Latex, Natural Rubber AdvReac Chest Verified 04/22/22 11:19 tightness Penicillins [PCN] AdvReac Rash Verified 04/22/22 11:19 Family History Father Diabetes Mother Hypertension Surgical History History of bladder repair surgery Previous back surgery 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 Social History Smoking Status: Former smoker alcohol intake: never ROS ROS ED ROS Narrative Constitutional: Denies fever HEENT: Denies sore throat Neck: Denies neck pain Cardiovascular: Endorses chest pain Respiratory: Denies shortness of breath GI: Denies nausea vomiting or abdominal pain : Denies changes in urinary habits Musculoskeletal: Denies muscle or joint pain Neurologic: Denies numbness weakness or loss of sensation Skin denies rash EXAM Physical Exam Narrative Exam Narrative: Nursing triage notes reviewed, Vital signs reviewed Constitutional: please see mdm HENT: MMM Eyes: Pupils equal round and reactive to light, Extraocular muscles intact Neck: No stridor, no JVD, full neck ROM Lungs: Clear to auscultation, No wheezing or rales. No increased work of breathing, no conversational dyspnea, no accessory muscle use, no nasal flaring. No respiratory distress noted Heart: Regular rate and rhythm, No murmurs, No rubs and No gallops, 2+ distal pulses (radial, femoral, posterior tibial) in all extremities Abdomen: Soft, there is no tenderness, rigidity, rebound or guarding, no obvious peritoneal signs, no palpable pulsatile abdominal masses, no auscultated abdominal bruit : No CVAT Extremities: No edema, no calf tenderness Neuro: No focal neurological deficits, cranial nerves II through XII intact, 5/5 strength in all extremities. Intact sensation to light touch in all extremities, 2+ reflexes bilateral patella dens. Normal gait. No ataxia. Skin: No rash or lesions noted Const Vital Signs: 04/22/22 11:16 04/22/22 11:21 04/22/22 11:40 Temperature 98.6 F Temperature Source Oral Pulse Rate 98 Respiratory Rate 20 H Respiratory Effort Normal Non-Labored Blood Pressure 146/97 H Blood Pressure Mean 113 Pulse Ox 98 Oxygen Delivery Method Room Air Room Air 04/22/22 12:35 04/22/22 14:07 04/22/22 14:46 Temperature Temperature Source Pulse Rate 84 69 81 Respiratory Rate 18 20 H 18 Respiratory Effort Blood Pressure 139/98 H 124/97 H 124/75 H Blood Pressure Mean 111 106 Pulse Ox 98 97 98 Oxygen Delivery Method Room Air Room Air [facility] MDM MDM Narrative Medical decision making narrative: 36-year-old male here with chest pain. Pain began approximately 1 hour prior to arrival. No bleeding diathesis noted to suggest severe anemia. No family or personal history of VTE. Low risk Wells score. Low suspicion based on history and clinical exam for aortic dissection. More concerned with ACS versus anemia versus electrolyte abnormalities versus pneumonia. Obtained a broad lab and imaging work-up to further elucidate the etiology of the patient's complaints. Labs and images were remarkable for no acute abnormalities. Delta trop negative PE less likely given low risk Wells score. Aortic dissection is thought to be less likely given no sudden ripping or tearing pain, migratory pain, palpable pulse inequalities, no focal neurologic deficits concurrent with chest pain. Chance of dissection less than 06/1999. Pericarditis less likely given no pathognomonic EKG changes (no diffuse ST elevations, AK depressions). GI etiology (i.e. Boerhaave syndrome) less likely given no chest or neck crepitus, no vomiting or forced retching. I completed a HEART Score to screen for Major Adverse Cardiac Event (MACE) in this patient. The evidence indicates that the patient is very low risk for MACE and this is consistent with my clinical intuition. The risk of further workup or hospitalization for MACE is likely higher than the risk of the patient having a MACE. It is, therefore, in the patient?s best interest not to do additional emergent testing or to be hospitalized for MACE at this time. Shared Decision-Making No hospitalization indicated I have discussed with the patient my clinical impression and the result of the HEART Score to screen for MACE, as well as the risks of further testing and hospitalization. The HEART Score shows that the risk for MACE is less than 1%. Although the risk of MACE has not been completely eliminated, the risks of further testing or hospitalization for MACE likely exceed any potential benefit, and the patient agrees with not pursuing further emergent evaluation or hospitalization for MACE at this time. Lab Data Attestation: I reviewed the patient's lab results. Lab results narrative: CBC without leukocytosis, severe anemia, no thrombocytopenia. BMP without evidence of significant electrolyte abnormalities, no anion gap, no acute kidney injury. Troponin is negative, no evidence of myocardial ischemia, delta troponin also negative Labs: Laboratory Results - last 24 hr 04/22/22 04/22/22 04/22/22 11:33 11:33 14:03 WBC 6.0 RBC 5.28 Hgb 16.0 Hct 45.5 MCV 86.2 MCH 30.3 MCHC 35.2 RDW Std Deviation 39.1 RDW Coeff of Kim 12.4 Plt Count 303 MPV 9.4 Immature Gran % (Auto) 0.200 Neut % (Auto) 55.7 Lymph % (Auto) 32.1 [place] % (Auto) 7.7 Eos % (Auto) 3.3 Baso % (Auto) 1.0 Absolute Neuts (auto) 3.3 Absolute Lymphs (auto) 1.92 Nucleated RBC % 0 Sodium 139 Potassium 4.6 Chloride 109 H Carbon Dioxide 25.0 Anion Gap 5 BUN 10 Creatinine 0.91 Estim Creat Clear Calc 95.74 Est GFR (MDRD) Af Amer 120 Est GFR (MDRD) Non-Af 99 BUN/Creatinine Ratio 11.0 Glucose 56 L Calcium 9.3 Troponin I High Sens 4 3 Radiography Diagnostic Testing: Clinical Impression(s) from Imaging Studies Chest X-Ray 04/22/22 11:31 IMPRESSION: No acute abnormality is seen. The tip of the right central catheter is at the junction of the superior vena cava and right atrium. Electronically Signed: Artur Rosenberg MD at 12:24 EDT , EKG Initial EKG: Comments: EKG with normal sinus rhythm, normal axis, normal intervals, no STEMI Treatment and Re-Evaluation Narrative: Shared decision making: I had a long discussion with the patient and or visitors regarding risk/benefits of further testing or admission. They decided to forego any further testing or admission. They are aware of of the risk/benefits inherent in this decision and have voiced understanding. Discharge Plan Triage Chief Complaint: Chest Pain ED Provider: Stewart Humphries Dx/Rx/DC Orders Instructions: ED Chest Pain, Uncertain Cause Prescriptions: No Action venlafaxine 75 MG capsule,extended release 24hr 75 mg PO QHS doxycycline monohydrate 100 MG capsule 100 mg PO BID Qty: 20 0RF naproxen 500 MG tablet 500 mg PO BID Qty: 14 0RF Primary Care Provider: Jose Roberto Bradshaw Referrals: Jose Roberto Bradshaw [Primary Care Provider] - Disposition Disposition: Home, Self Care Discharge Date/Time: 04/22/22 14:47
--- NOTE | 2022-04-22 11:31 | RAD_ITS ---
STUDY: X-RAY CHEST REASON FOR EXAM: Male, 36 years old. Chest pain TECHNIQUE: Single AP portable view of the chest. COMPARISON: None. FINDINGS: A right-sided central catheter is seen with the tip at the junction of the superior vena cava and right atrium. EKG electrodes are seen. Elevation of the right hemidiaphragm. There is no demonstrated pleural abnormality. Normal size heart. Normal mediastinum and mindi. Normal visualized pulmonary arteries. Normal visualized aortic arch and descending thoracic aorta. Normal visualized thoracic spine. Normal visualized ribs, clavicles, and shoulders. There is no demonstrated abnormality of the visualized soft tissue structures of the upper abdomen. RAD/Chest 1 View (Portable) IMPRESSION: No acute abnormality is seen. The tip of the right central catheter is at the junction of the superior vena cava and right atrium. Electronically Signed: Artur Rosenberg MD at 12:24 EDT ,
[2022-04-22] MEDS: Aspirin 81 MG TAB.CHEW 324 MG PO (11:37)
[2022-04-22 11:42] LABS: Absolute Lymphocyte Count 1.92 X10^3/uL (0.83-4.51); Absolute Neutrophil Count 3.3 X10^3/uL (2.0-7.7); Basophil# 0.06 X10^3/uL; Eosinophils% 3.3 % (0-5); Hematocrit 45.5 % (40-54); Lymphocyte # 1.92 X10^3/ul (0.83-4.51); Lymphocyte % 32.1 % (19-41); Mean Corp Hgb Conc 35.2 g/dL (32-36); Mean Corpuscular Hgb 30.3 pg (27.0-32.0); Mean Corpuscular Volume 86.2 fL (80-94); Mean Platelet Vol. 9.4 fl (6.2-12.0); Monocyte# 0.46 X10^3/uL; Monocyte% 7.7 % (0-10); NRBC Flagged by Analyzer 0 % (0-5); Neutrophil # 3.33 X10^3/uL (2.7-7.7); Neutrophil % 55.7 % (47-70); Platelet Count 303 K/mm3 (150-450); RBC Distribution Width CV 12.4 % (11.6-14.6); RBC Distribution Width SD 39.1 fl (35.1-43.9); Red Blood Count 5.28 M/mm3 (4.6-6.2)
[2022-04-22 12:01] LABS: Anion Gap 5 (5-15); BUN 10 mg/dL (7-18); Calcium,Total 9.3 mg/dL (8.5-10.1); Chloride 109 mmol/L (98-107); Creatinine, Serum 0.91 mg/dL (0.70-1.30); EST Glomerular Filtration Rate 99 mL/min (>60); Est Glom Filt Rate - Afr Amer 120 mL/min (>60); Estimated Creatinine Clearance 95.74 ml/min; Glucose 56 mg/dL (74-106); Potassium 4.6 mmol/L (3.5-5.1); Sodium Level 139 mmol/L (136-145); Troponin-I HS (w/2H Reflex) 4 pg/mL (3.0-78.0)
[2022-04-22 12:35] VITALS: BP 139/98; PULSE 84; RESP 18; O2SAT 98
[2022-04-22 13:38] LABS: Reflex Troponin-HS? (from REC) Y
[2022-04-22 14:07] VITALS: BP 124/97; PULSE 69; RESP 20; O2SAT 97
[2022-04-22 14:29] LABS: Troponin-I HS 3 pg/mL (3.0-78.0)
[2022-04-22 14:46] VITALS: BP 124/75; PULSE 81; RESP 18; O2SAT 98
== END 2022-04-22 14:47 | disposition home or self-care (01) ==
PROVIDERS: Emergency Provider Emergency Medicine; Visit Provider Emergency Medicine
DX: R07.9 Chest pain, unspecified (principal); Z79.899 Other long term (current) drug therapy; Z79.1 Long term (current) use of non-steroidal anti-inflammatories (NSAID); Z87.891 Personal history of nicotine dependence
CPT/HCPCS: 71045; 80048; 84484; 85025; 93005; 99285; A4216

== ENCOUNTER 2022-06-28 19:22 | Emergency (ER) | payer OTHER, SELFPAY ==
[2022-06-28 19:23] VITALS: BP 148/103; PULSE 102; RESP 18; TEMP 36.8; O2SAT 100; BMI 28.5
--- NOTE | 2022-06-28 20:06 | CT_ITS ---
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 A radiation dose optimization technique was used for this scan. IV Contrast dosage and agent: None. COMPARISON: 04/19/2019 FINDINGS: BRAIN PARENCHYMA: There is a right transparietal ventriculostomy shunt. The tip of the ventriculostomy shunt projects in the posterior superior aspect of the right lateral ventricle. There is moderate cortical atrophy. The right lateral ventricle is decompressed. There is mild dilatation of the left lateral ventricle. There is no evidence of intra or extra-axial hemorrhage. Chiari malformation with prominence of the foramen magnum appears stable. CALVARIUM, SKULL BASE, PARANASAL SINUSES AND MASTOID AIR CELLS: Clear. No discrete lytic or blastic abnormalities. ORBITS: Both globes, extraocular muscles, optic nerves and retrobulbar fat appear unremarkable. ASPECTS Score for Acute Strokes: 10 CT/Brain/Head without Contrast IMPRESSION: Stable findings. Right transparietal ventriculostomy shunt. Moderate cortical and central atrophy with mild persistent dilatation of the left lateral ventricle. Chiari malformation. Electronically Signed: Ti Bustos MD, SANTOSH at 21:00 EST ,
--- NOTE | 2022-06-28 20:07 | EX.ED.VIS.HA ---
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 He states he has had this since he was a child. It was replaced approximately 5 years ago, and the time before that another 5 years. He complains of headache mainly on the right side of his head for the last 8 days. He attempted to call his neurosurgeon at the [facility] but states he did not receive a call back. He denies any fevers or chills. No nausea or vomiting. He is taking ibuprofen without relief. He states that whenever he gets to feeling this way there is usually something wrong with his shunt. He denies any paresthesias, no exacerbating or alleviating factors. PFSH <Michi Napier MD - Last Filed: 07/02/22 22:03> [facility] Medical History Pressure ulcer of ischium, stage 3 Spina bifida Ventricular shunt in place Home Medications venlafaxine 75 mg capsule,extended release 24 hr 35.5 mg PO QHS mood 12/12/19 [History Last Taken 12/11/19] ibuprofen 200 mg tablet 400 mg PO PRN PRN Headache 06/28/22 [History Last Taken Unknown] lisinopril 5 mg tablet 5 mg PO DAILY 06/28/22 [History Last Taken Unknown] Allergy/AdvReac Type Severity Reaction Status Date / Time Iodinated Contrast Media Allergy Rash Verified 06/28/22 19:27 [CONTRASTS] acetaminophen [From Vicodin] AdvReac Chest Verified 06/28/22 19:27 tightness hydrocodone [From Vicodin] AdvReac Chest Verified 06/28/22 19:27 tightness Latex, Natural Rubber AdvReac Chest Verified 06/28/22 19:27 tightness Penicillins [PCN] AdvReac Rash Verified 06/28/22 19:27 Family History Father Diabetes Mother Hypertension Surgical History History of bladder repair surgery Previous back surgery S/P 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 HEENT: No sore throat. Mild right-sided neck pain. No loss of vision. No rhinorrhea. Positive scalp pain. Cardiovascular: No chest pain. No palpitations. No pedal edema. Respiratory: No cough, no shortness of breath. Abdominal: No abdominal pain. No nausea. No vomiting. Genitourinary: No dysuria. No hematuria. Musculoskeletal: No myalgias. No arthralgias. Neurologic: Positive right-sided headaches for 8 days. No dizziness. No lightheadedness. Skin: No rash. No change in color. Psychiatric: No depression. No anxiety. EXAM <Michi Napier MD - Last Filed: 07/02/22 22:03> Physical Exam Narrative Exam Narrative: Afebrile. Vital signs noted. HEENT: Normocephalic. Atraumatic. PERRL, EOMI. Neck soft and supple. No point tenderness or step off. Cardiovascular: Regular rate and rhythm. No murmurs, rubs, or gallops appreciated. Respiratory: No tachypnea. Lungs clear to auscultation bilaterally. Gastrointestinal: Abdomen soft, nontender, with normoactive bowel sounds. No rebound or guarding. Neurological: Awake. Alert. Nonfocal, nonlateralizing. Consistent with spina bifida. Skin: No rash. Normal color. No pallor. Musculoskeletal: No pedal edema. Const Vital Signs: 06/28/22 19:23 06/28/22 23:22 Temperature 98.2 F Temperature Source Temporal Pulse Rate 102 H 80 Respiratory Rate 18 16 Blood Pressure 148/103 H 128/97 H Blood Pressure Mean 118 107 Pulse Ox 100 98 Oxygen Delivery Method Room Air Room Air <Dr. Rod Herrera DO - Last Filed: 06/29/22 00:23> Physical Exam Const Vital Signs: 06/28/22 19:23 06/28/22 23:22 Temperature 98.2 F Temperature Source Temporal Pulse Rate 102 H 80 Respiratory Rate 18 16 Blood Pressure 148/103 H 128/97 H Blood Pressure Mean 118 107 Pulse Ox 100 98 Oxygen Delivery Method Room Air Room Air [facility] <Michi Napier MD - Last Filed: 07/02/22 22:03> [facility] Narrative Medical decision making narrative: Patient was administered morphine 4 mg for analgesia. Shunt series was obtained including CT of the brain. I reviewed the CT images and see no evidence of right ventricular enlargement. I reviewed the radiologist CT read which states there is a right transparietal ventriculostomy shunt, with moderate cortical atrophy. The right lateral ventricle is decompressed. I agree with the radiologist read of this. I also reviewed and interpreted the shunt series. There is an area in the mid chest that appears disconnected. Radiologist confirms this that it appears discontinuous in this region by about 6 cm. When I discussed this with the patient, he states that when his shunt has been revised/replaced there were areas that could not be removed, but he is unsure if this is 1 of those areas. However, I am unsure as to why it would not pick and shovel man in another area if it is in the mid chest and they left a small piece under scar tissue. I have attempted to page someone with neurosurgery at the [facility] to discuss these findings. Patient states he continues to have a headache. It is not necessarily migrainous in nature although it is one-sided, but he denies any nausea or vomiting, no photophobia or phonophobia. I offered to attempt to treated with Compazine and Benadryl, or administer more pain medication, but the patient drove here himself and does not want to have a ride home. Radiography Diagnostic Testing: Clinical Impression(s) from Imaging Studies Brain CT 06/28/22 20:06 IMPRESSION: Stable findings. Right transparietal ventriculostomy shunt. Moderate cortical and central atrophy with mild persistent dilatation of the left lateral ventricle. Chiari malformation. Electronically Signed: Ti Bustos MD, JD at 21:00 EST , Shuntogram 06/28/22 20:58 IMPRESSION: Shunt appears discontinuous in the mid chest region. Additional findings above. Electronically Signed: Ti Bustos MD, JD at 21:20 EST , <Dr. Rod Herrera, DO - Last Filed: 06/29/22 00:23> MDM Radiography Diagnostic Testing: Clinical Impression(s) from Imaging Studies Brain CT 06/28/22 20:06 IMPRESSION: Stable findings. Right transparietal ventriculostomy shunt. Moderate cortical and central atrophy with mild persistent dilatation of the left lateral ventricle. Chiari malformation. Electronically Signed: Ti Bustos MD, SANTOSH at 21:00 EST , Shuntogram 06/28/22 20:58 IMPRESSION: Shunt appears discontinuous in the mid chest region. Additional findings above. Electronically Signed: Ti Bustos MD, SANTOSH at 21:20 EST , Treatment and Re-Evaluation Narrative: The patient was signed out to me while awaiting consult with [facility] neurology/neurosurgeon. After approximately 2-1/2 hours we did receive a call back but this was not from the proper human resource consultant. Following this notification I went to the patient and informed him of this. I offered that we page once again and try to get the proper human resource consultant this time but he knows that it could take another few hours for a return phone call. He has stable vitals and normal neurologic exam and states that as his head CT reveals no dilated ventricles he does not want to wait in the hospital any further and will reach out to the neurosurgeon on Thursday and also follow-up with his family doctor. The patient is awake alert and oriented and competent to make this decision and therefore we discharged home. Discharge Plan Triage Chief Complaint: Headache Other Complaint: General Illness ED Provider: Michi Napier Dx/Rx/DC Orders Clinical Impression: Ventricular shunt in place, Spina bifida, Headache, Displacement of ventricular intracranial (communicating) shunt, initial encounter Instructions: ED Pain, Acute, Uncertain Cause Prescriptions: No Action venlafaxine 75 MG capsule,extended release 24hr 35.5 mg PO QHS ibuprofen 200 mg Tablet 400 mg PO PRN PRN (Reason: Headache) lisinopril 5 mg tablet 5 mg PO DAILY Label Comments: take 1 tablet by mouth once daily Primary Care Provider: Jose Roberto Bradshaw Referrals: Jose Roberto Bradshaw [Primary Care Provider] - Activity Restrictions/Additional Instructions: Follow up with your Neurosurgeon, Dr. Márquez as soon as possible. Disposition Disposition: Home, Self Care Discharge Date/Time: 06/29/22 00:27
[2022-06-28] MEDS: Morphine 4 MG/ML Syringe IV (20:42)
--- NOTE | 2022-06-28 20:58 | RAD_ITS ---
INDICATION: Headache EXAMINATION/TECHNIQUE: Lateral skull view, AP view of the neck and chest, AP view of the abdomen. X-RAY - XR Shuntogram (Previously Placed) COMPARISON: None. 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 Shunt extends through the right neck into the mid mediastinal region. At this point appears discontinuous with a gap of 6 cm between this portion of the shunt and more laterally located shunt extending into the abdomen and pelvis. Incidentally noted is spinal dysraphism at the L5 and L4 levels. RAD/Shuntogram/Prev Placed Shunt IMPRESSION: Shunt appears discontinuous in the mid chest region. Additional findings above. Electronically Signed: Ti Bustos MD, SANTOSH at 21:20 EST ,
[2022-06-28 23:22] VITALS: BP 128/97; PULSE 80; RESP 16; O2SAT 98
[2022-06-28] MEDS: Ketorolac 30 MG/ML Syringe IV (23:49)
== END 2022-06-29 00:27 | disposition home or self-care (01) ==
PROVIDERS: Emergency Provider Emergency Medicine; Visit Provider Emergency Medicine
DX: T85.02XA Displacement of ventricular intracranial (communicating) shunt, initial encounter (principal); Q05.9 Spina bifida, unspecified; Y83.8 Other surgical procedures as the cause of abnormal reaction of the patient, or of later complication, without mention of misadventure at the time of the procedure; Z87.891 Personal history of nicotine dependence; Z79.899 Other long term (current) drug therapy; Z98.2 Presence of cerebrospinal fluid drainage device
CPT/HCPCS: 70450; 75809; 96374; 96375; 99282; A4216

== ENCOUNTER 2022-10-10 14:53 | Emergency (ER) | payer OTHER, SELFPAY ==
[2022-10-10 14:54] VITALS: BP 154/98; PULSE 97; RESP 18; TEMP 36.6; O2SAT 98; BMI 27.9
--- NOTE | 2022-10-10 15:35 | US_ITS ---
PROCEDURE: ABDOMINAL ULTRASOUND, RIGHT UPPER QUADRANT COMPARISONS: None. CLINICAL INDICATION: Right upper quadrant pain TECHNIQUE: Real-time lucero-scale abdominal ultrasound. Limited color Doppler evaluation is performed. FINDINGS: Liver: Normal in size and echogenicity. Appropriate hepatopetal flow is present in the main portal vein. Gallbladder: Normal wall thickness. Shadowing gallstones. Sonographic Silveira''s sign is absent. No pericholecystic fluid is present. Biliary Tree: Nondilated. Common bile duct measures 3 mm. Pancreas: Not obscured due to bowel gas. Right kidney: Normal in size and echogenicity. No hydronephrosis or stones. The right kidney measures 9.4 cm in long axis. Possible small right pleural effusion. US/Gallbladder IMPRESSION: Cholelithiasis without sonographic evidence of acute cholecystitis. Probable small right pleural effusion. Electronically Signed: Yasir Mayers MD at 17:12 EDT ,
--- NOTE | 2022-10-10 15:38 | ED.VIS.GI ---
HPI HPI - GI History of Present Illness Chief Complaint: Abd Pain Informant: patient Narrative Narrative: Presents intermittent right side abdominal pain for the past few months. Symptoms worse with food. He seen Walter Perez in June had a CT scan was treated for an infection for which she is not clear exactly what for. Pain would come and go however does worsen with all foods. 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 Spine surgery. He has had additional bladder augmentation. He has been more constipated did have a bowel movement today last time 5 days ago. He is having flatus. No nausea or vomiting. He had a EGD colonoscopy few years ago by Dr. Dee. He states there is no significant findings, he states he thinks it was for rectal bleeding. He does not follow with GI, he just changed insurance therefore does not have a PCP. Denies fevers. Denies any bloody or black stools. Last meal 6 hours ago. 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 Home Medications venlafaxine 75 mg capsule,extended release 24 hr 35.5 mg PO QHS mood 12/12/19 [History Last Taken 12/11/19] pantoprazole 40 mg tablet,delayed release 40 mg PO DAILY #30 tabs 10/10/22 [Rx Last Taken Unknown] Allergy/AdvReac Type Severity Reaction Status Date / Time Iodinated Contrast Media Allergy Rash Verified 10/10/22 14:56 [CONTRASTS] acetaminophen [From Vicodin] AdvReac Chest Verified 10/10/22 14:56 tightness hydrocodone [From Vicodin] AdvReac Chest Verified 10/10/22 14:56 tightness Latex, Natural Rubber AdvReac Chest Verified 10/10/22 14:56 tightness Penicillins [PCN] AdvReac Rash Verified 10/10/22 14:56 Family History Father Diabetes Mother Hypertension Surgical History History of bladder repair surgery Previous back surgery S/P DIRECTOR OF PHILANTHROPY shunt Social History Smoking Status: Former smoker alcohol intake: never ROS ROS ED Constitutional Constitutional ED: Denies chills, fever(s) or sweats Eyes Eyes: Denies change in vision ENT ENT ED: Denies dysphagia or sore throat Cardiovascular Cardiovascular: Denies chest pain, leg edema, palpitations or racing heartbeat Respiratory/Chest Respiratory/Chest: Denies cough, dyspnea or dyspnea on exertion Gastrointestinal Gastrointestinal: Reports abdominal pain; Denies diarrhea, nausea or vomiting Genitourinary Genitourinary ED: Denies dysuria, hematuria or urinary frequency Musculoskeletal Musculoskeletal: Denies back pain, extremity pain or neck pain Integumentary Denies rash or wounds Neurologic Neurologic: Denies headache(s), paresthesias or weakness EXAM Physical Exam Const Vital Signs: 10/10/22 14:54 10/10/22 17:24 Temperature 97.9 F Temperature Source Temporal Pulse Rate 97 70 Respiratory Rate 18 16 Blood Pressure 154/98 H 139/72 H Blood Pressure Mean 116 Pulse Ox 98 98 Oxygen Delivery Method Room Air Positive well nourished and well developed General Appearance ED: well developed and NAD HEENT Reports moist mucous membranes normocephalic and atraumatic Eyes PERRL, EOMs intact bilaterally and conjunctivae normal General Eye ED: Yes normal appearance of both eyes Neck no lymphadenopathy and supple General: Negative for tenderness Chest Wall Chest: Negative for tenderness Resp normal respiratory effort and normal air movement Effort and Inspection: symmetric chest movement; Negative for respiratory distress Cardio regular rate, regular rhythm and no murmurs Peripheral Pulses: pulses 2+ throughout GI normal to inspection, nondistended, normoactive bowel sounds GI Narrative: Tender palpation right upper quadrant, negative McBurney's. Previous surgical scars right left upper abdomen along with midline infra umbilical. Positive bowel sounds. Palpation: Negative for guarding or rebound tenderness present Back/Spine no CVA tenderness and no thoracic nor lumbar tenderness Extremity normal to inspection Extremity Narrative: Bilateral lower extremity splints General Extremety ED: Negative for edema or tenderness General Extremity: Negative for edema Neuro oriented x3 and no sensory deficits noted Sensorium / Orientation: awake and alert Skin no rashes or lesions noted and no wounds MDM MDM MDM Narrative Medical decision making narrative: Interventions / MDM: Differential diagnosis: Nonspecific abdominal pain, cholecystitis, cholelithiasis, Diagnosis considered but do not suspect: N/A My EKG interpretation: N/A Imaging independently reviewed and interpreted by myself: N/A External documents reviewed: Reviewed patient upper endoscopy colonoscopy December 2019, he had internal hemorrhoids on colonoscopy, he had gastritis findings with no ulcers from upper endoscopy. He was placed on Protonix daily at that time. Test considered but not ordered:N/A ED course: Patient tender right upper quadrant. Nontoxic. Treated morphine Zofran fluids. Abdominal labs were normal. Ultrasound right upper quadrant obtained noting cholelithiasis with no cholecystitis. I discussed findings with patient. Discussed his previous endoscopy with gastritis in his spouse. A PPI. He is restarted on pantoprazole with a prescription. He is given follow-up with Dr. Dee for outpatient evaluation of his cholelithiasis concerning for symptomatic cholelithiasis with meals. Return precautions. Re-evaluation: stable and improving symptoms. Disposition discussed with patient/family/significant other: Patient Case discussed with consulting clinician: N/A Lab Data Attestation: I reviewed the patient's lab results. Labs: Laboratory Results - last 24 hr 10/10/22 10/10/22 15:25 15:25 WBC 6.2 RBC 5.19 Hgb 15.8 Hct 45.6 MCV 87.9 MCH 30.4 MCHC 34.6 RDW Std Deviation 38.5 RDW Coeff of Kim 12.0 Plt Count 299 MPV 9.5 Immature Gran % (Auto) 0.200 Neut % (Auto) 55.3 Lymph % (Auto) 33.2 [place] % (Auto) 7.7 Eos % (Auto) 3.0 Baso % (Auto) 0.6 Absolute Neuts (auto) 3.4 Absolute Lymphs (auto) 2.07 Nucleated RBC % 0 Sodium 138 Potassium 3.7 Chloride 108 H Carbon Dioxide 25.0 Anion Gap 5 BUN 18 Creatinine 0.92 Estim Creat Clear Calc 94.70 Est GFR (MDRD) Af Amer 119 Est GFR (MDRD) Non-Af 98 BUN/Creatinine Ratio 19.7 Glucose 89 Calcium 9.4 Total Bilirubin 0.40 Direct Bilirubin 0.14 AST 14 L ALT 26 Alkaline Phosphatase 92 Total Protein 8.0 Albumin 4.0 Globulin 4.0 Lipase 21 Radiography Diagnostic Testing: Clinical Impression(s) from Imaging Studies Gallbladder Ultrasound 10/10/22 15:35 IMPRESSION: Cholelithiasis without sonographic evidence of acute cholecystitis. Probable small right pleural effusion. Electronically Signed: Yasir Mayers MD at 17:12 EDT Reading Location ID and State: [facility] / [place] Tel , Service support , Discharge Plan Triage Chief Complaint: Abd Pain ED Provider: Arthur Mccurdy Dx/Rx/DC Orders Clinical Impression: Cholelithiases, Abdominal pain, RUQ Instructions: Abdominal Pain, ED Gallstones with Biliary Colic Prescriptions: New pantoprazole 40 mg tablet,delayed release (DR/EC) 40 mg PO DAILY Qty: 30 0RF No Action venlafaxine 75 MG capsule,extended release 24hr 35.5 mg PO QHS Primary Care Provider: Care Physician,No Primary Referrals: Sylvie Dee MD [Med Staff - Active Staff] - 3-5 Days NOT,DEFINED [Non-Staff] - Activity Restrictions/Additional Instructions: Cholelithiasis seen on ultrasound Labs are stable. Avoid greasy fatty and dairy foods. Follow-up with surgery for outpatient evaluation and further discussion. You had gastritis seen on your upper endoscopy in 2019. Restarting your pantoprazole. Return if worsening symptoms. Disposition Disposition: Home, Self Care Discharge Date/Time: 10/10/22 17:32
[2022-10-10] MEDS: 0.9% Normal Saline 1,000 ML 1000 ML IV (15:48)
[2022-10-10] MEDS: Morphine 4 MG/ML Syringe IV (15:50)
[2022-10-10] MEDS: Ondansetron 4 MG/2 ML Vial IV (15:50)
[2022-10-10 15:55] LABS: Absolute Lymphocyte Count 2.07 X10^3/uL (0.83-4.51); Absolute Neutrophil Count 3.4 X10^3/uL (2.0-7.7); Basophil# 0.04 X10^3/uL; Basophil% 0.6 % (0-1); Eosinophil# 0.19 X10^3/uL; Hematocrit 45.6 % (40-54); Hemoglobin 15.8 g/dL (13.0-16.5); Lymphocyte # 2.07 X10^3/ul (0.83-4.51); Lymphocyte % 33.2 % (19-41); Mean Corp Hgb Conc 34.6 g/dL (32-36); Mean Corpuscular Hgb 30.4 pg (27.0-32.0); Mean Corpuscular Volume 87.9 fL (80-94); Mean Platelet Vol. 9.5 fl (6.2-12.0); Monocyte# 0.48 X10^3/uL; Monocyte% 7.7 % (0-10); NRBC Flagged by Analyzer 0 % (0-5); Neutrophil # 3.44 X10^3/uL (2.7-7.7); Neutrophil % 55.3 % (47-70); Platelet Count 299 K/mm3 (150-450); RBC Distribution Width SD 38.5 fl (35.1-43.9); Red Blood Count 5.19 M/mm3 (4.6-6.2); White Blood Count 6.2 K/mm3 (4.4-11.0)
[2022-10-10 16:11] LABS: AST(SGOT) 14 U/L (15-37); Alanine Aminotransfer ALT/SGPT 26 U/L (16-61); Alkaline Phosphatase 92 U/L (45-117); Anion Gap 5 (5-15); BUN 18 mg/dL (7-18); BUN/Creat Ratio 19.7 RATIO (10-20); Bilirubin, Direct 0.14 mg/dL (0.00-0.30); Calcium,Total 9.4 mg/dL (8.5-10.1); Chloride 108 mmol/L (98-107); Creatinine, Serum 0.92 mg/dL (0.70-1.30); EST Glomerular Filtration Rate 98 mL/min (>60); Est Glom Filt Rate - Afr Amer 119 mL/min (>60); Glucose 89 mg/dL (74-106); Lipase 21 U/L (13-75); Potassium 3.7 mmol/L (3.5-5.1); Sodium Level 138 mmol/L (136-145)
[2022-10-10 17:24] VITALS: BP 139/72; PULSE 70; RESP 16; O2SAT 98
== END 2022-10-10 17:32 | disposition home or self-care (01) ==
PROVIDERS: Emergency Provider Emergency Medicine; Visit Provider Emergency Medicine
DX: K80.20 Calculus of gallbladder without cholecystitis without obstruction (principal); Z87.891 Personal history of nicotine dependence
CPT/HCPCS: 76705; 80048; 80076; 83690; 85025; 96361; 96374; 96375; 99283; J2405

== ENCOUNTER 2022-10-13 14:06 | Inpatient (IN) | payer OTHER, SELFPAY ==
[2022-10-13 14:07] VITALS: BP 145/95; PULSE 86; RESP 16; TEMP 36.6; O2SAT 100; BMI 28.5
--- NOTE | 2022-10-13 14:41 | EDS_ITS ---
HPI History of Present Illness Chief Complaint: Abd Pain Detail of Chief Complaint: Predominantly right upper quadrant pain Informant: patient Onset/Context/Timing Onset: Weeks and Month(s) Context: Sudden Onset Timing: Continuous (Continuous since seen on Thursday.) and Waxes and wanes Quality: Achy pain Location: Right upper quadrant with radiation to the right flank area Current Severity: Mild Maximum Severity: Severe Worsened by: Attempt to eat Relieved by: Nothing Associated Symptoms Associated Symptoms: Nausea Narrative Narrative: Patient is a 36-year-old male who presents with right upper quadrant pain but intermittent initially and has been constant since Thursday. He has been seen twice at . He presented on Thursday and was diagnosed with cholelithiasis with a clinical sonographic Silveira sign suggestive of acute cholecystitis. He was referred to the general surgeon on-call that day. He is attempted to contact her. He was unsuccessful. He attempted to eat cereal last evening for dinner. He had nothing for breakfast or lunch. He has eaten nothing today. He states he was not discharged to home on pain medicine. He does report nausea and increased pain. He denies fever or chills. He denies dark-colored urine. He denies change in the color of his eyes. Last bowel movement was yesterday and normal for patient. He denies dysuria, frequency, urgency or hematuria. Denies dark-colored urine. 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 He has had surgery for spina bifida. He had a bladder augmentation performed he was a child at [facility]. Prior similar symptoms: Yes Recent Illness/Hospitalization: Yes [facility] Medical History (Updated 10/13/22 @ 17:[address] Porfirio Mendoza MD) Cholelithiases Pressure ulcer of ischium, stage 3 Spina bifida Ventricular shunt in place Home Medications venlafaxine 75 mg capsule,extended release 24 hr 35.5 mg PO QHS mood 12/12/19 [History Last Taken 12/11/19] pantoprazole 40 mg tablet,delayed release 40 mg PO DAILY #30 tabs 10/10/22 [Rx Last Taken Unknown] Allergy/AdvReac Type Severity Reaction Status Date / Time Iodinated Contrast Media Allergy Rash Verified 10/13/22 14:09 [CONTRASTS] acetaminophen [From Vicodin] AdvReac Chest Verified 10/13/22 14:09 tightness hydrocodone [From Vicodin] AdvReac Chest Verified 10/13/22 14:09 tightness Latex, Natural Rubber AdvReac Chest Verified 10/13/22 14:09 tightness Penicillins [PCN] AdvReac Rash Verified 10/13/22 14:09 Family History Father Diabetes Mother Hypertension Surgical History History of bladder repair surgery Previous back surgery S/P 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 shunt Social History Smoking Status: Former smoker alcohol intake: never ROS ROS ED Constitutional Constitutional ED: Denies chills, fever(s), subjective, sweats or weight loss Eyes Eyes: Denies blurry vision, change in vision or diplopia ENT ENT ED: Denies ear pain, rhinorrhea or sore throat Cardiovascular Cardiovascular: Denies chest pain, palpitations or racing heartbeat Respiratory/Chest Respiratory/Chest: Denies cough, dyspnea or dyspnea on exertion Gastrointestinal Gastrointestinal: Reports abdominal pain and nausea; Denies constipation, diarrhea, melena or vomiting Genitourinary Genitourinary ED: Denies dysuria, hematuria or urinary frequency Musculoskeletal Musculoskeletal: Denies arthralgias, back pain, myalgias or neck pain Integumentary Denies rash Neurologic Neurologic: Denies headache(s) or paresthesias Psychiatric Psychiatric: Denies anxiety or depression Hematologic/Lymphatic Hematologic/Lymphatic: Reports systems reviewed and no addt'l complaints, except as documented EXAM Physical Exam Const Vital Signs: 10/13/22 14:07 10/13/22 17:00 Temperature 97.9 F Temperature Source Temporal Pulse Rate 86 71 Respiratory Rate 16 15 Blood Pressure 145/95 H 137/69 H Blood Pressure Mean 111 91 Pulse Ox 100 98 Oxygen Delivery Method Room Air Room Air Positive well nourished and well developed Constitutional Narrative: Looks uncomfortable. General Appearance ED: well developed; Negative for cyanotic, diaphoretic, NAD or pallor HEENT Reports dry mucous membranes HEENT Narrative: Head is atraumatic normocephalic. Ears normal. Nares patent. Posterior pharynx is normal. Mouth ED: Yes dry mucous membranes Mouth: dry mucous membranes Eyes PERRL and EOMs intact bilaterally General Eye ED: Negative for pale conjunctiva or scleral icterus Neck no lymphadenopathy, supple and no JVD Chest Wall inspection of chest normal Resp normal respiratory effort and clear to auscultation bilaterally Cardio regular rate, regular rhythm, S1 normal heart sound, S2 normal heart sound and no murmurs GI non-distended and no masses; Negative for non-tender or hepatosplenomegaly GI Narrative: Well-healed surgical scars noted. Bowel sounds are diminished. Patient has a clinical Silveira sign. Palpation: soft Back/Spine no CVA tenderness Thoracic Spine / Upper Back: Negative for thoracic spinal tenderness Lumbar Spine / Lower Back: Negative for lumbar spinal tenderness Neuro oriented x3, CN's II-XII intact bilaterally and no sensory deficits noted Sensorium / Orientation: alert Psych mental status grossly normal Skin no rashes or lesions noted, no wounds and skin turgor normal General Skin Exam: Negative for jaundice or pallor MDM MDM MDM Narrative Medical decision making narrative: Records from Thursday were reviewed. Ultrasound revealed cholelithiasis with a sonographic Silveira sign suggestive of acute cholecystitis. Patient's blood work however was normal i.e. CBC, hepatic panel and lipase. Patient was discharged to follow-up with Dr. Andrade. Will repeat blood work. Will medicate with Zofran and morphine for his nausea and pain. Will contact Dr. Andrade who is referred to. Spoke with Dr. German Mendoza who is on-call for surgery. He will be in to see patient. Dr. Mendoza requested admission to medicine. Spoke with Dr. Dominique Freed who accepted patient. History & Record Review Additional record(s) reviewed:: Prior outpatient record, Prior ED visit and Prior labs Lab Data Labs: Laboratory Results - last 24 hr 10/13/22 10/13/22 15:21 15:21 WBC 6.6 RBC 5.15 Hgb 15.4 Hct 45.1 MCV 87.6 MCH 29.9 MCHC 34.1 RDW Std Deviation 38.4 RDW Coeff of Kim 11.9 Plt Count 301 MPV 9.0 Immature Gran % (Auto) 0.200 Neut % (Auto) 58.6 Lymph % (Auto) 30.0 [place] % (Auto) 8.2 Eos % (Auto) 2.4 Baso % (Auto) 0.6 Absolute Neuts (auto) 3.8 Absolute Lymphs (auto) 1.97 Nucleated RBC % 0 Total Bilirubin 0.30 Direct Bilirubin 0.11 AST 13 L ALT 22 Alkaline Phosphatase 91 Total Protein 7.8 Albumin 3.8 Globulin 4.0 Lipase 21 Discharge Plan Triage Chief Complaint: Abd Pain ED Provider: Rangel Ibanez Dx/Rx/DC Orders Clinical Impression: Recurrent biliary colic, Spina bifida, Cholelithiases, Ventricular shunt in place Prescriptions: No Action venlafaxine 75 MG capsule,extended release 24hr 35.5 mg PO QHS pantoprazole 40 mg tablet,delayed release (DR/EC) 40 mg PO DAILY Qty: 30 0RF Primary Care Provider: Care Physician,No Primary Referrals: Care Physician,No Primary [Primary Care Provider] - Disposition Disposition: Acute Care [facility]
[2022-10-13 15:28] LABS: Absolute Lymphocyte Count 1.97 X10^3/uL (0.83-4.51); Absolute Neutrophil Count 3.8 X10^3/uL (2.0-7.7); Basophil# 0.04 X10^3/uL; Basophil% 0.6 % (0-1); Eosinophil# 0.16 X10^3/uL; Eosinophils% 2.4 % (0-5); Hematocrit 45.1 % (40-54); Hemoglobin 15.4 g/dL (13.0-16.5); Lymphocyte # 1.97 X10^3/ul (0.83-4.51); Mean Corp Hgb Conc 34.1 g/dL (32-36); Mean Corpuscular Hgb 29.9 pg (27.0-32.0); Mean Corpuscular Volume 87.6 fL (80-94); Monocyte# 0.54 X10^3/uL; Monocyte% 8.2 % (0-10); NRBC Flagged by Analyzer 0 % (0-5); Neutrophil # 3.84 X10^3/uL (2.7-7.7); Neutrophil % 58.6 % (47-70); Platelet Count 301 K/mm3 (150-450); RBC Distribution Width CV 11.9 % (11.6-14.6); RBC Distribution Width SD 38.4 fl (35.1-43.9); Red Blood Count 5.15 M/mm3 (4.6-6.2); White Blood Count 6.6 K/mm3 (4.4-11.0)
[2022-10-13] MEDS: 0.9% Normal Saline 1,000 ML 125 ML IV ×2 (15:28→18:52)
[2022-10-13] MEDS: Ondansetron 4 MG/2 ML Vial IV (15:29)
[2022-10-13] MEDS: Morphine 4 MG/ML Syringe IV ×2 (15:29→16:50)
[2022-10-13 15:45] LABS: AST(SGOT) 13 U/L (15-37); Alanine Aminotransfer ALT/SGPT 22 U/L (16-61); Albumin, Serum 3.8 g/dL (3.2-5.0); Alkaline Phosphatase 91 U/L (45-117); Bilirubin, Direct 0.11 mg/dL (0.00-0.30); Lipase 21 U/L (13-75); Protein, Total 7.8 g/dL (6.4-8.2)
[2022-10-13 17:00] VITALS: BP 137/69; PULSE 71; RESP 15; O2SAT 98
--- NOTE | 2022-10-13 17:00 | CON.PCM.SX_ITS ---
Assessment & Plan Assessment/Plan (1) Cholecystitis, acute with cholelithiasis: PLAN: My plan is to perform a laparoscopic cholecystectomy with intraoperative cholangiogram. The planned surgical procedure was discussed extensively with the patient. The risks, benefits, anticipated outcomes and possible complication were mentioned. My staff has also explained the procedure in understandable terms and the patient was given the option to take printed material concerning the planned procedure. The patient had the opportunity to ask questions concerning the planned procedure. The patient freely consents to the planned procedure. HPI Consult Data Date of Consult: 10/13/22 HPI Narrative HPI Narrative: YESI BRANTLEY, is a 36 M who presents with right upper quadrant pain but intermittent initially and has been constant since Thursday.? He has been seen twice at [facility].? He presented on Thursday and was diagnosed with cholelithiasis with a clinical sonographic Silveira sign suggestive of acute cholecystitis.? He was referred to the general surgeon on-call that day.? He is attempted to contact her.? He was unsuccessful.? He attempted to eat cereal last evening for dinner.? He had nothing for breakfast or lunch.? He has eaten nothing today.? He states he was not discharged to home on pain medicine. He does report nausea and increased pain.? He denies fever or chills.? He denies dark-colored urine.? He denies change in the color of his eyes.? Last bowel movement was yesterday and normal for patient.? He denies dysuria, frequency, urgency or hematuria.? Denies dark-colored urine. 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 He has had surgery for spina bifida.? He had a bladder augmentation performed he was a child at [facility]. Prior similar symptoms: Yes Recent Illness/Hospitalization: Yes [facility] Medical History (Updated 10/13/22 @ 17:[address] 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 Home Medications venlafaxine 75 mg capsule,extended release 24 hr 35.5 mg PO QHS mood 12/12/19 [History Last Taken 12/11/19] pantoprazole 40 mg tablet,delayed release 40 mg PO DAILY #30 tabs 10/10/22 [Rx Last Taken Unknown] Allergy/AdvReac Type Severity Reaction Status Date / Time Iodinated Contrast Media Allergy Rash Verified 10/13/22 14:09 [CONTRASTS] acetaminophen [From Vicodin] AdvReac Chest Verified 10/13/22 14:09 tightness hydrocodone [From Vicodin] AdvReac Chest Verified 10/13/22 14:09 tightness Latex, Natural Rubber AdvReac Chest Verified 10/13/22 14:09 tightness Penicillins [PCN] AdvReac Rash Verified 10/13/22 14:09 Family History Father Diabetes Mother Hypertension Surgical History History of bladder repair surgery Previous back surgery S/P TUB OPERATOR shunt Social History Smoking Status: Former smoker alcohol intake: never ROS Constitutional Constitutional: Denies chills, fatigue or fever(s) Cardiovascular Cardiovascular: Denies chest pain Respiratory/Chest Respiratory/Chest: Denies cough or dyspnea Gastrointestinal Gastrointestinal: Reports abdominal pain and nausea Genitourinary Genitourinary: Denies change in urinary stream Physical Exam Const alert and oriented x3 HEENT normocephalic and head/scalp atraumatic Eyes PERRL, EOMs intact bilaterally and conjunctivae normal Resp clear to auscultation bilaterally Cardio Rate: regular rate Rhythm: regular rhythm GI soft to palpation GI Narrative: Patient has tenderness in the right upper quadrant no rebound guarding or peritoneal signs are identified. Patient has multiple scars on his abdomen Lab / Micro Data Result Diagrams: 10/13/22 15:21 Labs: Laboratory Results - last 24 hr 10/13/22 15:21: WBC 6.6, RBC 5.15, Hgb 15.4, Hct 45.1, MCV 87.6, MCH 29.9, MCHC 34.1, RDW Std Deviation 38.4, RDW Coeff of Kim 11.9, Plt Count 301, MPV 9.0, Immature Gran % (Auto) 0.200, Neut % (Auto) 58.6, Lymph % (Auto) 30.0, [place] % (Auto) 8.2, Eos % (Auto) 2.4, Baso % (Auto) 0.6, Absolute Neuts (auto) 3.8, Absolute Lymphs (auto) 1.97, Nucleated RBC % 0 10/13/22 15:21: Total Bilirubin 0.30, Direct Bilirubin 0.11, AST 13 L, ALT 22, Alkaline Phosphatase 91, Total Protein 7.8, Albumin 3.8, Globulin 4.0, Lipase 21
--- NOTE | 2022-10-13 17:33 | HP.PCM.HOS_ITS ---
HPI - General General Date of Admission: 10/13/22 Date of Service: 10/13/22 HPI Narrative YESI BRANTLEY, is a 36 M who presents [facility] Medical History (Updated 10/13/22 @ 17:[address] Porfirio Mendoza MD) Cholelithiases Pressure ulcer of ischium, stage 3 Spina bifida Ventricular shunt in place Home Medications venlafaxine 75 mg capsule,extended release 24 hr 35.5 mg PO QHS mood 12/12/19 [History Last Taken 12/11/19] pantoprazole 40 mg tablet,delayed release 40 mg PO DAILY #30 tabs 10/10/22 [Rx Last Taken Unknown] Allergy/AdvReac Type Severity Reaction Status Date / Time Iodinated Contrast Media Allergy Rash Verified 10/13/22 14:09 [CONTRASTS] acetaminophen [From Vicodin] AdvReac Chest Verified 10/13/22 14:09 tightness hydrocodone [From Vicodin] AdvReac Chest Verified 10/13/22 14:09 tightness Latex, Natural Rubber AdvReac Chest Verified 10/13/22 14:09 tightness Penicillins [PCN] AdvReac Rash Verified 10/13/22 14:09 Family History Father Diabetes Mother Hypertension Surgical History History of bladder repair surgery Previous back surgery 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 Social History Smoking Status: Former smoker alcohol intake: never Vital Signs Vital Signs Vital Signs: 10/13/22 14:07 10/13/22 17:00 Temperature 97.9 F Temperature Source Temporal Pulse Rate 86 71 Respiratory Rate 16 15 Blood Pressure 145/95 H 137/69 H Blood Pressure Mean 111 91 Pulse Ox 100 98 Oxygen Delivery Method Room Air Room Air Weight Weight: 77.746 kg Body Mass Index (BMI) 28.5 Results Lab / Micro Data Result Diagrams: 10/13/22 15:21 Labs: Laboratory Results - last 24 hr 10/13/22 15:21: WBC 6.6, RBC 5.15, Hgb 15.4, Hct 45.1, MCV 87.6, MCH 29.9, MCHC 34.1, RDW Std Deviation 38.4, RDW Coeff of Kim 11.9, Plt Count 301, MPV 9.0, Immature Gran % (Auto) 0.200, Neut % (Auto) 58.6, Lymph % (Auto) 30.0, [place] % (Auto) 8.2, Eos % (Auto) 2.4, Baso % (Auto) 0.6, Absolute Neuts (auto) 3.8, Absolute Lymphs (auto) 1.97, Nucleated RBC % 0 10/13/22 15:21: Total Bilirubin 0.30, Direct Bilirubin 0.11, AST 13 L, ALT 22, Alkaline Phosphatase 91, Total Protein 7.8, Albumin 3.8, Globulin 4.0, Lipase 21
--- NOTE | 2022-10-13 17:33 | PCM.HP.STD ---
HPI - General General Date of Admission: 10/13/22 Date of Service: 10/13/22 Chief Complaint: Abdominal pain HPI Narrative YESI BRANTLEY, is a 36 M with a history of spina bifida with CHIEF LEARNING OFFICER shunt and bladder surgery who presented to [facility] 10/13/2022 with worsening abdominal pain. He reports this been going on for about a week and was worsening. He was seen at [facility] twice and reports they never found anything aside from what he said was possible slight inflammation of his appendix that they did not feel needed any intervention. Then presented to [facility] 10/10 and he had right upper quadrant ultrasound with cholelithiasis with no cholecystitis and he was restarted on a PPI due to his history of gastritis and referred for outpatient surgical eval for cholelithiasis concerning for symptomatic cholelithiasis with meals. He returned to [facility] 10/13 with worsened abdominal pain in the right upper quadrant with pain now in his back as well and some nausea that is new over the past 1 to 2 days. Denies fever or chills, reports he had a normal bowel movement today and denies diarrhea. Lipase within normal limits. Labs fairly unremarkable however given his recent cholelithiasis and per report his positive sonographic Silveira sign when he was here 10/10 surgery consulted for evaluation and they requested medicine admission with surgery consult. Patient evaluated in ED and reports that he feels very slightly better after IV pain medication and Zofran and at the very least his nausea is better. Reports he still has the pain in the right side of his abdomen with some pain in his back. Reports urinating well but has had decreased p.o. intake due to the pain and nausea. Does endorse had a CHIEF LEARNING OFFICER shunt replaced 3 years ago and has not had problems with that since, has had multiple abdominal surgeries due to the CHIEF LEARNING OFFICER shunt and a bladder surgery however no recent surgeries or other problems in that regard reported. [facility] Medical History (Updated 10/13/22 @ 17:[address] Porfirio Mendoza MD) Cholelithiases Pressure ulcer of ischium, stage 3 Spina bifida Ventricular shunt in place Home Medications venlafaxine 75 mg capsule,extended release 24 hr 37.5 mg PO QHS mood 12/12/19 [History Last Taken 10/12/22 21:00] Allergy/AdvReac Type Severity Reaction Status Date / Time Iodinated Contrast Media Allergy Rash Verified 10/13/22 14:09 [CONTRASTS] acetaminophen [From Vicodin] AdvReac Chest Verified 10/13/22 14:09 tightness hydrocodone [From Vicodin] AdvReac Chest Verified 10/13/22 14:09 tightness Latex, Natural Rubber AdvReac Chest Verified 10/13/22 14:09 tightness Penicillins [PCN] AdvReac Rash Verified 10/13/22 14:09 Family History Father Diabetes Mother Hypertension Surgical History History of bladder repair surgery Previous back surgery S/P CHIEF LEARNING OFFICER shunt Social History Smoking Status: Former smoker alcohol intake: never ROS ROS Narrative General: Denies fever/chills HENT: Denies headache, denies stuffy nose, denies sore throat EYES: Denies changes in vision Resp: Denies cough, denies shortness of breath Cardiac: Denies chest pain GI: Denies diarrhea or constipation today, has right-sided abdominal pain with some pain in his back, nausea without emesis, poor p.o. intake : Denies changes in urination Extremity: Denies swelling MSK: Denies weakness Neuro: Denies any numbness/tingling Heme: Denies any bleeding or bruising Skin: Denies rashes Psychiatric: No complaints voiced Vital Signs Vital Signs Vital Signs: 10/13/22 14:07 10/13/22 17:00 Temperature 97.9 F Temperature Source Temporal Pulse Rate 86 71 Respiratory Rate 16 15 Blood Pressure 145/95 H 137/69 H Blood Pressure Mean 111 91 Pulse Ox 100 98 Oxygen Delivery Method Room Air Room Air Weight Weight: 77.746 kg Body Mass Index (BMI) 28.5 Physical Exam Narrative General: Alert, oriented, appears uncomfortable HEENT: Atraumatic, normocephalic Eyes: Anicteric, normal conjunctiva, extraocular movements grossly intact Neck: Supple Respiratory: Clear to auscultation bilaterally, normal respiratory effort Cardiovascular: Regular rate and rhythm GI: Soft, nondistended, tender to palpation on the right side of abdomen with voluntary guarding but no rigidity and did not seem to have rebound, no pain in other portions of abdomen, hypoactive bowel sounds Extremities: No edema Musculoskeletal: Moving all extremities Neuro: No overt focal neurological deficits Skin: No rashes appreciated Psych: Cooperative Results Lab / Micro Data Result Diagrams: 10/13/22 15:21 10/13/22 18:30 Labs: Laboratory Results - last 24 hr 10/13/22 15:21: WBC 6.6, RBC 5.15, Hgb 15.4, Hct 45.1, MCV 87.6, MCH 29.9, MCHC 34.1, RDW Std Deviation 38.4, RDW Coeff of Kim 11.9, Plt Count 301, MPV 9.0, Immature Gran % (Auto) 0.200, Neut % (Auto) 58.6, Lymph % (Auto) 30.0, [place] % (Auto) 8.2, Eos % (Auto) 2.4, Baso % (Auto) 0.6, Absolute Neuts (auto) 3.8, Absolute Lymphs (auto) 1.97, Nucleated RBC % 0 10/13/22 15:21: Total Bilirubin 0.30, Direct Bilirubin 0.11, AST 13 L, ALT 22, Alkaline Phosphatase 91, Total Protein 7.8, Albumin 3.8, Globulin 4.0, Lipase 21 Assessment & Plan Assessment/Plan (1) Abdominal pain, RUQ: PLAN: Plan #Abdominal pain -Had right upper quadrant ultrasound 10/10 which demonstrated cholelithiasis but without increased wall thickness or bile duct dilation -Labs fairly benign in ED lipase negative but certainly has the right-sided abdominal pain -Surgery evaluated and concern for cholecystitis and plan for OR tomorrow with Intra-Op cholangiogram -Was started on fluids at 125 an hour as well as Cipro and Flagyl -Continue Protonix -Given his report of some possible inflammation in his appendix at the outlying facility and change in pain over the past [address] chest abdomen pelvis with contrast ordered. Patient has listed contrast allergy but he reports that he is premedicated with Benadryl he does not have any problems #History of spina bifida and CHIEF LEARNING OFFICER shunt -Denies any current problems -Outpatient management #DVT ppx: SCDs Dominique Freed MD Time spent in the patient's overall evaluation,decision-making process, review of diagnostic data, adjustment of management, discussion with other providers, nursing nursing and ancillary staff involved in patient's care documentation, 60 minutes Charges/Coding Visit Charges Inpatient E&M: 60601 Init Hosp L2
--- NOTE | 2022-10-13 17:35 | CT_ITS ---
INDICATION: Worsened epigastric pain now radiating to back EXAMINATION: CTA CHEST, ABDOMEN AND PELVIS WITH CONTRAST - TECHNIQUE: A CTA of the chest, abdomen, and pelvis is obtained with sagittal and coronal reconstructed MIP views. Three-dimensional surface rendered sequence of the thoracic and abdominal aorta was obtained. A radiation dose optimization technique was used for this scan. mL of Isovue-370. Oral contrast: None. RADIATION DOSAGE (If Supplied By Facility): CTDIvol = ( 7.26 ) mGy, DLP = ( 599.80 ) mGycm COMPARISON: FINDINGS: CT CHEST: THORACIC AORTA: No atheromatous disease, no aneurysmal changes or dissection. ABDOMINAL AORTA: No aneurysm or dissection. No significant atheromatous disease. The iliac arteries are unremarkable. Catheter is seen within the anterior right chest wall in the subcutaneous tissues extending into the peritoneal cavity in the right mid abdomen. There is a separate catheter is seen in the right mid abdomen and right lower quadrant. Question discontinuous AIR POLLUTION INSPECTOR shunt or drainage catheter. LUNGS: The lungs are well-expanded without acute or chronic changes. No effusions or pneumothorax. MEDIASTINUM: The thyroid gland is normal. No mediastinal or hilar adenopathy. HEART: Heart is normal size. No pericardial effusion. No CAD. CT ABDOMEN AND PELVIS: LIVER: The liver enhances homogeneously. No masses identified. GALLBLADDER: The CBD is normal. Normal gallbladder. SPLEEN: Normal. PANCREAS: No masses or inflammation. ADRENAL GLANDS: Normal. KIDNEYS AND URETERS: Moderate atrophy of the left kidney. Both kidneys demonstrate prompt renal function. There is a cortical cyst extending off the lower pole left kidney 3.2 cm. STOMACH: Normal. SMALL BOWEL: No abnormal distention of the small bowel. MESENTERY: No mesenteric inflammation. No ascites. COLON: No significant diverticulosis, masses or inflammation. The colon otherwise is normal. There is a large fatty ileocecal valve. APPENDIX: The appendix is visualized and normal. IVC: Normal. RETROPERITONEUM: No retroperitoneal lymphadenopathy. PELVIC STRUCTURES: Normal bladder. SOFT TISSUES ABDOMEN: The anterior abdominal wall is normal. SOFT TISSUE CHEST: The extrathoracic soft tissues are normal. BONES: No fractures or significant degenerative disease. CT/CTA Chst, Abd, Pel W and/or WO IMPRESSION: Moderate atrophy of the left kidney. Simple cyst lower pole left kidney. 2. Catheters are seen one of which was in the right anterior chest wall extending into the right upper quadrant. Second catheter is seen laterally in the right mid abdomen. Question discontinuous AIR POLLUTION INSPECTOR shunt. Correlation advised. Electronically Signed: Ti Bustos MD, SANTOSH at 21:23 EDT ,
[2022-10-13 17:57] VITALS: BP 139/62; PULSE 75; RESP 16; TEMP 36.8; O2SAT 99
[2022-10-13 18:06] VITALS: BMI 28.5
[2022-10-13 18:29] VITALS: BP 143/100; PULSE 75; RESP 18; TEMP 36.6; O2SAT 100
[2022-10-13] MEDS: DiphenhydrAMINE 50 MG/ML Syringe 25 MG IV (19:03)
[2022-10-13] MEDS: 0.9% Saline Lock 10 ML Syringe IV ×2 (19:03→21:22)
[2022-10-13] MEDS: oxyCODONE 5 MG Tablet PO (19:03)
[2022-10-13 19:04] LABS: Anion Gap 6 (5-15); BUN 9 mg/dL (7-18); BUN/Creat Ratio 10.6 RATIO (10-20); Calcium,Total 8.9 mg/dL (8.5-10.1); Chloride 112 mmol/L (98-107); Creatinine, Serum 0.85 mg/dL (0.70-1.30); EST Glomerular Filtration Rate 107 mL/min (>60); Est Glom Filt Rate - Afr Amer 129 mL/min (>60); Glucose 90 mg/dL (74-106); Potassium 3.8 mmol/L (3.5-5.1); Sodium Level 140 mmol/L (136-145)
[2022-10-13] MEDS: Ciprofloxacin 400 MG/200 ML BAG 200 MG IV (19:23)
[2022-10-13 19:24] LABS: Lactic Acid 2.2 mmol/L (0.4-1.9)
[2022-10-13 20:53] VITALS: BP 136/95; PULSE 69; RESP 18; TEMP 36.8; O2SAT 100
[2022-10-13] MEDS: HYDROmorphone 0.5 MG/0.5 ML SYRINGE IV (21:20)
[2022-10-13] MEDS: Venlafaxine XR 37.5 MG Capsule PO (21:21)
[2022-10-13] MEDS: metroNIDAZOLE 500 MG/100 ML BAG 100 MG IV (21:21)
[2022-10-13 22:43] LABS: Reflex Lactate? Y
[2022-10-13 23:33] LABS: Lactic Acid 1.3 mmol/L (0.4-1.9)
[2022-10-13 23:57] VITALS: BP 136/92; PULSE 63; RESP 18; TEMP 36.8; O2SAT 98
[2022-10-14] VITALS (16 sets, daily range): BP systolic 118–146; BP diastolic 70–104; PULSE 55–106; RESP 14–20; TEMP 36.5–37.2; O2SAT 93–100; BMI 28.5
[2022-10-14] MEDS: MELATONIN 3 MG TABLET PO
[2022-10-14] MEDS: 0.9% Normal Saline 1,000 ML 125 ML IV (04:05)
[2022-10-14] MEDS: oxyCODONE 5 MG Tablet PO ×4 (04:12→22:45)
--- NOTE | 2022-10-14 05:00 | EKG12_ITS ---
Test Reason : PRE OP Blood Pressure : / mmHG Vent. Rate : 058 BPM Atrial Rate : 058 BPM P-R Int : 166 ms QRS Dur : 108 ms QT Int : 420 ms P-R-T Axes : 010 036 043 degrees QTc Int : 412 ms Sinus bradycardia Otherwise normal ECG When compared with ECG of 22-APR-2022 11:23, Vent. rate has decreased BY 40 BPM Confirmed by YONATAN BATISTA, JOLYNN ([id number]), index editor JENNIFER TOMLIN ([id number]) on 10/15/2022 9:40:17 AM Referred By: TRINA Confirmed By:JOLYNN ATM MD
--- NOTE | 2022-10-14 06:37 | RAD_ITS ---
STUDY: SHUNTOGRAM. REASON FOR EXAM: Male, 36 years old. ?Discontinuous MICRO COMPUTER SPECIALIST shunt TECHNIQUE: Multiple images of the ventriculoperitoneal shunt tube were obtained. COMPARISON: Comparison is made with prior study dated June 28, 2022. FINDINGS: Once again, the MICRO COMPUTER SPECIALIST shunt projects over the posterior parietal and occipital regions. The shunt extends through the right side of the neck into the mid mediastinal region. There is a 6 cm gap between this portion of the shunt and the more laterally located shunt extending into the abdomen and pelvis. There is evidence of a spinal dysraphism at the L5 and L4 levels. RAD/Shuntogram/Prev Placed Shunt IMPRESSION: Stable examination. Electronically Signed: Arutr Rosenberg MD at 10:23 EDT ,
[2022-10-14 07:22] LABS: Absolute Lymphocyte Count 1.62 X10^3/uL (0.83-4.51); Absolute Neutrophil Count 3.6 X10^3/uL (2.0-7.7); Basophil# 0.04 X10^3/uL; Basophil% 0.7 % (0-1); Eosinophil# 0.15 X10^3/uL; Eosinophils% 2.5 % (0-5); Hematocrit 41.1 % (40-54); Hemoglobin 13.8 g/dL (13.0-16.5); Lymphocyte # 1.62 X10^3/ul (0.83-4.51); Lymphocyte % 27.2 % (19-41); Mean Corp Hgb Conc 33.6 g/dL (32-36); Mean Corpuscular Hgb 30.3 pg (27.0-32.0); Mean Corpuscular Volume 90.3 fL (80-94); Mean Platelet Vol. 9.8 fl (6.2-12.0); Monocyte# 0.57 X10^3/uL; Monocyte% 9.6 % (0-10); NRBC Flagged by Analyzer 0 % (0-5); Neutrophil # 3.56 X10^3/uL (2.7-7.7); Neutrophil % 59.8 % (47-70); Platelet Count 239 K/mm3 (150-450); RBC Distribution Width CV 12.1 % (11.6-14.6); Red Blood Count 4.55 M/mm3 (4.6-6.2)
[2022-10-14 08:04] LABS: AST(SGOT) 13 U/L (15-37); Alanine Aminotransfer ALT/SGPT 19 U/L (16-61); Albumin, Serum 3.2 g/dL (3.2-5.0); Alkaline Phosphatase 73 U/L (45-117); Anion Gap 2 (5-15); BUN 8 mg/dL (7-18); BUN/Creat Ratio 8.9 RATIO (10-20); Calcium,Total 8.7 mg/dL (8.5-10.1); Chloride 114 mmol/L (98-107); EST Glomerular Filtration Rate 100 mL/min (>60); Est Glom Filt Rate - Afr Amer 121 mL/min (>60); Estimated Creatinine Clearance 96.81 ml/min; Globulin 3.1 g/dL (2.2-4.2); Glucose 90 mg/dL (74-106); Potassium 4.4 mmol/L (3.5-5.1); Protein, Total 6.3 g/dL (6.4-8.2); Sodium Level 138 mmol/L (136-145)
[2022-10-14] MEDS: HYDROmorphone 0.5 MG/0.5 ML SYRINGE IV (08:08)
[2022-10-14] MEDS: 0.9% Saline Lock 10 ML Syringe IV ×4 (08:08→20:30)
[2022-10-14] MEDS: Ciprofloxacin 400 MG/200 ML BAG 200 MG IV (09:46)
--- NOTE | 2022-10-14 09:56 | PCM.PN.HOSP ---
Reason for Visit Reason for Visit: Diagnoses Calculus of gallbladder with acute cholecystitis without obstruction (10/13/22) Right upper quadrant pain (10/13/22) Subjective Subjective Still having abd pain that is certainly improved with the pain medication and is in the same place, still also toward his back. No further nausea, tolerated some liquids last night Objective Data Objective Data Vital Signs: Vital Signs Temp Pulse Resp BP Pulse Ox O2 Del Method 97.8 F 60 18 141/101 H 98 Room Air 10/14/22 09:46 10/14/22 09:46 10/14/22 09:46 10/14/22 09:46 10/14/22 09:46 10/14/22 09:46 Oxygen Delivery Method Room Air Weight: 77.649 kg Body Mass Index (BMI) 28.5 Intake & Output: Intake and Output for Last 24 Hours 10/12/22 10/13/22 10/14/22 23:59 23:59 23:59 Intake Total 1200 / 1200 1756.25 / 1756.25 Output Total 650 / 650 Balance 1200 / 1200 1106.25 / 1106.25 Lab / Micro Data Result Diagrams: 10/14/22 06:50 10/14/22 06:50 Labs: Laboratory Results - last 24 hr 10/13/22 15:21: WBC 6.6, RBC 5.15, Hgb 15.4, Hct 45.1, MCV 87.6, MCH 29.9, MCHC 34.1, RDW Std Deviation 38.4, RDW Coeff of Kim 11.9, Plt Count 301, MPV 9.0, Immature Gran % (Auto) 0.200, Neut % (Auto) 58.6, Lymph % (Auto) 30.0, [place] % (Auto) 8.2, Eos % (Auto) 2.4, Baso % (Auto) 0.6, Absolute Neuts (auto) 3.8, Absolute Lymphs (auto) 1.97, Nucleated RBC % 0 10/13/22 15:21: Total Bilirubin 0.30, Direct Bilirubin 0.11, AST 13 L, ALT 22, Alkaline Phosphatase 91, Total Protein 7.8, Albumin 3.8, Globulin 4.0, Lipase 21 10/13/22 18:30: Sodium 140, Potassium 3.8, Chloride 112 H, Carbon Dioxide 22.0, Anion Gap 6, BUN 9, Creatinine 0.85, Estim Creat Clear Calc 102.50, Est GFR (MDRD) Af Amer 129, Est GFR (MDRD) Non-Af 107, BUN/Creatinine Ratio 10.6, Glucose 90, Calcium 8.9 10/13/22 18:30: Lactic Acid 2.2 H* 10/13/22 22:55: Lactic Acid 1.3 10/14/22 06:50: WBC 6.0, RBC 4.55 L, Hgb 13.8, Hct 41.1, MCV 90.3, MCH 30.3, MCHC 33.6, RDW Std Deviation 40.0, RDW Coeff of Kim 12.1, Plt Count 239, MPV 9.8, Immature Gran % (Auto) 0.200, Neut % (Auto) 59.8, Lymph % (Auto) 27.2, [place] % (Auto) 9.6, Eos % (Auto) 2.5, Baso % (Auto) 0.7, Absolute Neuts (auto) 3.6, Absolute Lymphs (auto) 1.62, Nucleated RBC % 0 10/14/22 06:50: Sodium 138, Potassium 4.4, Chloride 114 H, Carbon Dioxide 22.0, Anion Gap 2 L, BUN 8, Creatinine 0.90, Estim Creat Clear Calc 96.81, Est GFR (MDRD) Af Amer 121, Est GFR (MDRD) Non-Af 100, BUN/Creatinine Ratio 8.9 L, Glucose 90, Calcium 8.7, Total Bilirubin 0.50, AST 13 L, ALT 19, Alkaline Phosphatase 73, Total Protein 6.3 L, Albumin 3.2, Globulin 3.1, Albumin/Globulin Ratio 1.0 Radiography Diagnostic Testing: Radiology Impression Chest/Abdomen/Pelvis CTA 10/13/22 17:35 IMPRESSION: Moderate atrophy of the left kidney. Simple cyst lower pole left kidney. 2. Catheters are seen one of which was in the right anterior chest wall extending into the right upper quadrant. Second catheter is seen laterally in the right mid abdomen. Question discontinuous MANUFACTURE SPECIALIST shunt. Correlation advised. Electronically Signed: Ti Bustos MD, SANTOSH at 21:23 EDT , Physical Exam Narrative General: Alert, oriented, appears uncomfortable HEENT: Atraumatic, normocephalic Eyes: Anicteric, normal conjunctiva, extraocular movements grossly intact Neck: Supple Respiratory: Clear to auscultation bilaterally, normal respiratory effort Cardiovascular: Regular rate and rhythm GI: Soft, nondistended, tender to palpation on the right side of abdomen with voluntary guarding but no rigidity and did not seem to have rebound, no pain in other portions of abdomen, hypoactive bowel sounds Extremities: No edema Musculoskeletal: Moving all extremities Neuro: No overt focal neurological deficits Skin: No rashes appreciated Psych: Cooperative Assessment & Plan Assessment/Plan (1) Abdominal pain, RUQ: PLAN: Plan #Abdominal pain -Had right upper quadrant ultrasound 10/10 which demonstrated cholelithiasis but without increased wall thickness or bile duct dilation -Labs fairly benign in ED lipase negative but certainly has the right-sided abdominal pain -Surgery evaluated and concern for cholecystitis and plan for OR tomorrow with Intra-Op cholangiogram -Was started on fluids at 125 an hour as well as Cipro and Flagyl -Continue Protonix -Given his report of some possible inflammation in his appendix at the outlying facility and change in pain over the past [address] chest abdomen pelvis with contrast ordered. Patient has listed contrast allergy but he reports that he is premedicated with Benadryl he does not have any problems -10/14: CT chest abd pelivs without overt abnormality, it queried shunt abnormality. Shuntogram reports stable exam. For surgery today #History of spina bifida and MANUFACTURE SPECIALIST shunt -Denies any current problems -Outpatient management date 10/14: Shuntogram stable exam #DVT ppx: SCDs Dominique Freed MD Time spent in the patient's overall evaluation,decision-making process, review of diagnostic data, adjustment of management, discussion with other providers, nursing nursing and ancillary staff involved in patient's care documentation, 30 minutes Charges/Coding Visit Charges Inpatient E&M: 40511 Subs Hosp L2
--- NOTE | 2022-10-14 10:25 | CASEMGMT ---
ESTELLE MARK Assessment: Face to Face with pt for initial transition planning/care coordination assessment. RN DEEDEE introduced self and role at [facility], pt voices understanding and consents to assessment. Pt is A/O x4 and answers all questions appropriately at this time. Pt sitting up in bed in no distress with mother at bedside. Care providers, pharmacy, and demographics verified/updated. Admitting Dx: abd pain PCP:No PCP, offered local healthcare directory, pt declined stating he has to go through his insurance company to find a PCP. Specialists:Yesica neurosurgeon [facility] Preferred Pharmacy: [facility] Insurance: Commercial Other Prescription Benefit: yes LNOK: Mónica Camara, mother Living Arrangements: Pt lives alone in a two story home with 15 steps to enter. Pt reports he is I in ADL's and denies concerns at home. Transportation: Pt drives self and denies concerns with transportation. DME/HHC/SNF: Pt has a cane at home but does not use. Pt denies hx of HHC or SNF stays. Pt states no concerns with going home at time of dc. Pt states no further concerns/needs. CM to follow. Advised pt to ask CM if any further question/concerns/needs arise, voices understanding. Pt Goal: Home Plan: Home
--- NOTE | 2022-10-14 10:53 | NURSING ---
Pt off floor for procedure. 1400 flagyl dose sent with pt
[2022-10-14] MEDS: Lactated Ringers 1,000 ML 15 ML IV ×2 (11:07→15:50)
--- NOTE | 2022-10-14 11:20 | GALL_PTH ---
PATIENT: YESI BRANTLEY LOC: MS3 U#:[id number] AGE/SX: 36/M ROOM: OR314 RE10/13/[address]: Dr. Elida Aguirre MD : [id number] BED: 1 DIS: 10/25/2022 SPEC #: [id number] RECD: 10/14/22 15:15 STATUS: ROBBI DRUMMOND #: [id number] ULISES: 10/14/22 11:[address]: Porfirio Mendoza DEPT: SURGICAL PATHOLOGY RECD BY: Nguyễn Flores ENTERED: 10/15/22 07:55 SP TYPE: JOSE CARLOS GRANADOS DR: Dr. Dominique Freed MD No Primary Care Phys Tissues: Gallbladder, NOS Procedures: Surgery Specimen Level III HEADER OPERATION: Cholecystectomy open PRE-OP DIAGNOSIS: Cholecystitis, acute with cholelithiasis TISSUE SUBMITTED: Gallbladder MICROSCOPIC DIAGNOSIS Gallbladder, cholecystectomy: Chronic cholecystitis, cholelithiasis and cholesterolosis. SJ:michael 10/16/2022 MICROSCOPIC DESCRIPTION Slides are reviewed. GROSS DESCRIPTION Received is one container labeled with the patient's name and designated gallbladder. The specimen consists of a gallbladder measuring 6.0 x 4.0 x 2.0 cm. The external surface is smooth and glistening. Focally, it is granular, hemorrhagic and contains cautery artifact. The lumen of the gallbladder contains yellow-green mucoid bile and two ovoid, chalky green calculi ranging in size from 0.7 to 1.1 cm in greatest dimension. The mucosa is bile-stained and without any mass lesions. The gallbladder wall averages 0.2 cm in thickness and is free of mass lesions. Injection Molding Process Technician sections of the gallbladder and the cystic duct at margin of resection are submitted in one cassette. / AM:michael 10/15/2022 TC:3 CPT: 12384
[2022-10-14] MEDS: Vancomycin IV 1,000 MG/200 ML BAG 200 MG IV (13:30)
[2022-10-14] MEDS: Bupivacaine Mpf 0.5% 30 ML VIAL OPERA.SITE (13:50)
[2022-10-14] MEDS: 0.9% Normal Saline (Pres. free 10 ML Vial (13:53)
[2022-10-14] MEDS: BUPIVACAINE LIPOSOME/PF 20 ML VIAL OPERA.SITE (13:53)
--- NOTE | 2022-10-14 13:58 | OP.PCM_ITS ---
Problems Associated Problem List Diagnoses (1) Cholecystitis, acute with cholelithiasis: Report of Operation Date of Procedure: 10/14/22 Pre-Operative Diagnosis: Acute cholecystitis with cholelithiasis Post-Operative Diagnosis: Same Surgery/Procedure Performed:: Attempted laparoscopic cholecystectomy converted to open cholecystectomy Surgeon: Porfirio Mendoza phone manager: Xochitl Dawn Type of Anesthesia: General Anesthesiologist: Gold Piedra Specimen's removed: Gallbladder Estimated Blood Loss (mL): 450 cc Fluids Replaced: 2000 cc Description of Procedure: Patient was brought into the operating room. Placed in supine position. Under excellent general anesthetic the abdomen was sterilely prepped and draped in usual fashion. I used a Visiport in the left midclavicular line injected local made an incision I used a Visiport in the mid clavicular line in the left got into the abdomen but there was too many adhesions I did not see any injury to the bowel but I just was no way I was going to find any window here I went to the right side in the same fashion I tried to use a Visiport. Once again I got into the abdomen but I did not see any windows at all. I made a right subcostal incision using his previous incision where the peritoneal shunt had been placed. I went through the external fascia I then transected the rectus abdominis muscle entered the abdomen very carefully bowel was densely adherent to the posterior fascia once I dissected it free from the posterior fascia I used electrocautery lengthen it medially and then went through the oblique muscles on the lateral aspect he had a very hostile abdomen with significant adhesions in the right upper quadrant it took quite a bit of sharp dissection as well as blunt dissection just to find the gallbladder which was densely adherent to the liver. The liver itself also had adhesions with the had to take down with electrocautery so that I could place lap sponges on the dome to bring the liver down just so I could see the gallbladder easier. I brought the Bookwalter retractor in I retracted off the transverse colon and intestines inferiorly I dissected the gallbladder dome down I got into some bleeding and held pressure this was coming from the liver this stopped with just pressure but I probably lost a good 300 cc just with this maneuver. It was very clear that I was not going to be able to find the juncture between the cystic duct and the common duct I made a determination that I was going to use a loop and transect the base of the gallbladder. This was easily accomplished I remove the gallbladder I had good pneumostasis and minimal spillage of bile and no spillage of stones. I irrigated the right upper quadrant good with stasis was noted I remove all the sponges I injected Exparel rel and the muscle layers posterior fascia was brought together with #1 PDS anterior fascia was brought together with #1 PDS. Subcu was brought together with deep dermal stitches of 3-0 Vicryl then a running 4-0 Monocryl. Steri-Strips were applied sterile dressings were applied and the patient tolerated the procedure well. I did not leave a drain in there was no pus that I could see. The operating field was clear and I did not want to leave another subcutaneous drain in place with a PROFILING MACHINE SET UP OPERATOR shunt in place. During this case I did find the old drain which was just floating in the right upper quadrant near the liver I removed it and I did see his new PROFILING MACHINE SET UP OPERATOR shunt which was white I did keep this medially away from the operating field.
[2022-10-14] MEDS: metroNIDAZOLE 500 MG/100 ML BAG 100 MG IV (14:00)
[2022-10-14] MEDS: HYDROmorphone 1 MG/ML Syringe IV ×2 (17:13→20:29)
[2022-10-14] MEDS: Ondansetron 4 MG/2 ML Vial IV (19:54)
[2022-10-14] MEDS: Venlafaxine XR 37.5 MG Capsule PO (22:38)
[2022-10-15] VITALS (10 sets, daily range): BP systolic 125–140; BP diastolic 86–95; PULSE 104–120; RESP 18–20; TEMP 36.8–37.5; O2SAT 86–95
[2022-10-15] MEDS: HYDROmorphone 1 MG/ML Syringe IV ×5 (01:08→22:22)
[2022-10-15] MEDS: 0.9% Saline Lock 10 ML Syringe IV ×7 (01:08→22:22)
[2022-10-15] MEDS: oxyCODONE 5 MG Tablet PO (06:05)
[2022-10-15 06:20] LABS: Absolute Lymphocyte Count 1.54 X10^3/uL (0.83-4.51); Absolute Neutrophil Count 6.5 X10^3/uL (2.0-7.7); Basophil# 0.03 X10^3/uL; Basophil% 0.3 % (0-1); Eosinophil# 0.08 X10^3/uL; Eosinophils% 0.9 % (0-5); Hematocrit 41.7 % (40-54); Hemoglobin 13.7 g/dL (13.0-16.5); Lymphocyte # 1.54 X10^3/ul (0.83-4.51); Lymphocyte % 16.6 % (19-41); Mean Corp Hgb Conc 32.9 g/dL (32-36); Mean Corpuscular Hgb 29.6 pg (27.0-32.0); Mean Corpuscular Volume 90.1 fL (80-94); Mean Platelet Vol. 9.7 fl (6.2-12.0); Monocyte# 1.12 X10^3/uL; Monocyte% 12.1 % (0-10); NRBC Flagged by Analyzer 0 % (0-5); Neutrophil % 69.9 % (47-70); Platelet Count 256 K/mm3 (150-450); RBC Distribution Width CV 12.1 % (11.6-14.6); RBC Distribution Width SD 39.9 fl (35.1-43.9); Red Blood Count 4.63 M/mm3 (4.6-6.2); White Blood Count 9.3 K/mm3 (4.4-11.0)
[2022-10-15 06:55] LABS: AST(SGOT) 68 U/L (15-37); Alanine Aminotransfer ALT/SGPT 75 U/L (16-61); Albumin, Serum 3.1 g/dL (3.2-5.0); Alkaline Phosphatase 66 U/L (45-117); Anion Gap 5 (5-15); BUN 9 mg/dL (7-18); BUN/Creat Ratio 10.8 RATIO (10-20); Calcium,Total 8.5 mg/dL (8.5-10.1); Chloride 109 mmol/L (98-107); Creatinine, Serum 0.84 mg/dL (0.70-1.30); EST Glomerular Filtration Rate 109 mL/min (>60); Est Glom Filt Rate - Afr Amer 132 mL/min (>60); Estimated Creatinine Clearance 103.72 ml/min; Glucose 105 mg/dL (74-106); Potassium 3.9 mmol/L (3.5-5.1); Protein, Total 6.1 g/dL (6.4-8.2); Sodium Level 135 mmol/L (136-145)
--- NOTE | 2022-10-15 07:01 | PCM.PN.HOSP ---
Reason for Visit Reason for Visit: Diagnoses Calculus of gallbladder with acute cholecystitis without obstruction (10/13/22) Right upper quadrant pain (10/13/22) Subjective Subjective Surgery yesterday converted to open. Today patient reports he is having significant pain which is improved by pain medication but does not last for significant amount of time. Did have some broth with no nausea. Has not yet passed gas or had bowel movement but tenderness localized to area with surgery and no rebound guarding or rigidity. Objective Data Objective Data Vital Signs: Vital Signs Temp Pulse Resp BP Pulse Ox O2 Del Method O2 Flow Rate 98.8 F 114 H 18 137/89 H 93 Room Air 2 10/15/22 05:58 10/15/22 05:58 10/15/22 05:58 10/15/22 05:58 10/15/22 05:58 10/15/22 05:58 10/14/22 18:48 Oxygen Flow Rate (L/min) 2 Oxygen Delivery Method Room Air Weight: 77.649 kg Body Mass Index (BMI) 28.5 Intake & Output: Intake and Output for Last 24 Hours 10/13/22 10/14/22 10/15/22 23:59 23:59 23:59 Intake Total 1200 / 1200 5087.75 / 5087.75 377.25 / 377.25 Output Total 2100 / 2100 550 / 550 Balance 1200 / 1200 2987.75 / 2987.75 -172.75 / -172.75 Lab / Micro Data Result Diagrams: 10/15/22 05:54 10/15/22 05:54 Labs: Laboratory Results - last 24 hr 10/14/22 06:50: WBC 6.0, RBC 4.55 L, Hgb 13.8, Hct 41.1, MCV 90.3, MCH 30.3, MCHC 33.6, RDW Std Deviation 40.0, RDW Coeff of Kim 12.1, Plt Count 239, MPV 9.8, Immature Gran % (Auto) 0.200, Neut % (Auto) 59.8, Lymph % (Auto) 27.2, [place] % (Auto) 9.6, Eos % (Auto) 2.5, Baso % (Auto) 0.7, Absolute Neuts (auto) 3.6, Absolute Lymphs (auto) 1.62, Nucleated RBC % 0 10/14/22 06:50: Sodium 138, Potassium 4.4, Chloride 114 H, Carbon Dioxide 22.0, Anion Gap 2 L, BUN 8, Creatinine 0.90, Estim Creat Clear Calc 96.81, Est GFR (MDRD) Af Amer 121, Est GFR (MDRD) Non-Af 100, BUN/Creatinine Ratio 8.9 L, Glucose 90, Calcium 8.7, Total Bilirubin 0.50, AST 13 L, ALT 19, Alkaline Phosphatase 73, Total Protein 6.3 L, Albumin 3.2, Globulin 3.1, Albumin/Globulin Ratio 1.0 10/14/22 13:05: Blood Type O POSITIVE, Antibody Screen NEGATIVE 10/15/22 05:54: WBC 9.3, RBC 4.63, Hgb 13.7, Hct 41.7, MCV 90.1, MCH 29.6, MCHC 32.9, RDW Std Deviation 39.9, RDW Coeff of Kim 12.1, Plt Count 256, MPV 9.7, Immature Gran % (Auto) 0.200, Neut % (Auto) 69.9, Lymph % (Auto) 16.6 L, [place] % (Auto) 12.1 H, Eos % (Auto) 0.9, Baso % (Auto) 0.3, Absolute Neuts (auto) 6.5, Absolute Lymphs (auto) 1.54, Nucleated RBC % 0 10/15/22 05:54: Sodium 135 L, Potassium 3.9, Chloride 109 H, Carbon Dioxide 21.0, Anion Gap 5, BUN 9, Creatinine 0.84, Estim Creat Clear Calc 103.72, Est GFR (MDRD) Af Amer 132, Est GFR (MDRD) Non-Af 109, BUN/Creatinine Ratio 10.8, Glucose 105, Calcium 8.5, Total Bilirubin 0.90, AST 68 H, ALT 75 H, Alkaline Phosphatase 66, Total Protein 6.1 L, Albumin 3.1 L, Globulin 3.0, Albumin/Globulin Ratio 1.0 Radiography Diagnostic Testing: Radiology Impression Shuntogram 10/14/22 06:37 IMPRESSION: Stable examination. Electronically Signed: Artur Rosenberg MD at 10:23 EDT , Physical Exam Narrative General: Alert, oriented, appears uncomfortable HEENT: Atraumatic, normocephalic Eyes: Anicteric, normal conjunctiva, extraocular movements grossly intact Neck: Supple Respiratory: Clear to auscultation bilaterally, normal respiratory effort Cardiovascular: Mildly tachycardic and normal rhythm GI: Soft, nondistended, is tender to palpation on the right side of abdomen with no rebound, guarding, rigidity. No other tenderness in left half of abdomen. Hypoactive bowel sounds. Extremities: No edema Musculoskeletal: Moving all extremities Neuro: No overt focal neurological deficits Skin: No rashes appreciated, dressing placed over right-sided incision, no extending erythema, no bruising on right flank Psych: Cooperative Assessment & Plan Assessment/Plan (1) Abdominal pain, RUQ: PLAN: Plan #Acute cholecystitis with cholelithiasis -Had right upper quadrant ultrasound 10/10 which demonstrated cholelithiasis but without increased wall thickness or bile duct dilation -Labs fairly benign in ED lipase negative but certainly has the right-sided abdominal pain -Surgery evaluated and concern for cholecystitis and plan for OR tomorrow with Intra-Op cholangiogram -Was started on fluids at 125 an hour as well as Cipro and Flagyl -Continue Protonix -Given his report of some possible inflammation in his appendix at the outlying facility and change in pain over the past [address] chest abdomen pelvis with contrast ordered. Patient has listed contrast allergy but he reports that he is premedicated with Benadryl he does not have any problems -10/14: CT chest abd pelvis without overt abnormality, it queried shunt abnormality. Shuntogram reports stable exam. For surgery today -10/15: Attempted laparoscopic cholecystectomy converted to open cholecystectomy due to adhesions. Had successful cholecystectomy. We will work on improving pain control and advised to use incentive spirometer. 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
[2022-10-15] MEDS: Pantoprazole Sodium 40 MG Tablet PO (08:42)
[2022-10-15] MEDS: DiphenhydrAMINE 50 MG/ML Syringe 25 MG IV ×2 (08:42→16:24)
[2022-10-15] MEDS: Senna/Docusate Sodium 1 Tablet 2 TABLET PO (08:45)
[2022-10-15] MEDS: oxyCODONE 5 MG Tablet 10 MG PO ×2 (13:28→20:56)
[2022-10-15] MEDS: Calcium Carbonate 500 MG Tablet 1000 MG PO (16:19)
--- NOTE | 2022-10-15 19:36 | PN.SURG_ITS ---
Subjective Subjective Preoperative pain is gone. Patient is only complaining of incisional pain today. No flatus and no bowel movements as of yet. Objective Data Objective Data Dressing is dry no signs of any cellulitis. Vital Signs: Vital Signs Temp Pulse Resp BP Pulse Ox O2 Del Method O2 Flow Rate 98.6 F 108 H 18 134/86 H 92 Nasal Cannula 4 10/15/22 17:01 10/15/22 17:01 10/15/22 17:01 10/15/22 17:01 10/15/22 17:01 10/15/22 17:01 10/15/22 17:01 Oxygen Flow Rate (L/min) 4 Oxygen Delivery Method Nasal Cannula Weight: 171 lb 3 oz Body Mass Index (BMI) 28.5 Intake & Output: Intake and Output for Last 24 Hours 10/13/22 10/14/22 10/15/22 23:59 23:59 23:59 Intake Total 1200 / 1200 5087.75 / 5087.75 674.25 / 674.25 Output Total 2100 / 2100 1275 / 1275 Balance 1200 / 1200 2987.75 / 2987.75 -600.75 / -600.75 Lab / Micro Data Result Diagrams: 10/15/22 05:54 10/15/22 05:54 Labs: Laboratory Results - last 24 hr 10/15/22 05:54: WBC 9.3, RBC 4.63, Hgb 13.7, Hct 41.7, MCV 90.1, MCH 29.6, MCHC 32.9, RDW Std Deviation 39.9, RDW Coeff of Kmi 12.1, Plt Count 256, MPV 9.7, Immature Gran % (Auto) 0.200, Neut % (Auto) 69.9, Lymph % (Auto) 16.6 L, [place] % (Auto) 12.1 H, Eos % (Auto) 0.9, Baso % (Auto) 0.3, Absolute Neuts (auto) 6.5, Absolute Lymphs (auto) 1.54, Nucleated RBC % 0 10/15/22 05:54: Sodium 135 L, Potassium 3.9, Chloride 109 H, Carbon Dioxide 21.0, Anion Gap 5, BUN 9, Creatinine 0.84, Estim Creat Clear Calc 103.72, Est GFR (MDRD) Af Amer 132, Est GFR (MDRD) Non-Af 109, BUN/Creatinine Ratio 10.8, Glucose 105, Calcium 8.5, Total Bilirubin 0.90, AST 68 H, ALT 75 H, Alkaline Phosphatase 66, Total Protein 6.1 L, Albumin 3.1 L, Globulin 3.0, Albumin/Globulin Ratio 1.0 Assessment & Plan Assessment/Plan (1) Cholecystitis, acute with cholelithiasis: PLAN: Postoperative day #1 Await GI function. Postop labs look good do not think that we have any stones that got into the common bile duct.
--- NOTE | 2022-10-15 19:40 | DCINST_ITS ---
Discharge Instructions Procedure Gallbladder Diet Discharge Diet: Light diet - advance as tolerated Activity Discharge Activity: May Not Drive (for 2-3 days or while taking narcotic pain medications.) and - (Do not drive, work heavy equipment or sign legal documents for 24 hours.) May shower in (days): 1 (with the bandage in place.) Additional Activity Instructions:: Pain medication may cause nausea. You should typically eat light foods as you take your pain medications. Pain medication may also cause constipation. If this is a problem for you, please discuss with your doctor. Dressing / Incision Call your doctor if your incision/area has: Continuous Slow Oozing, Sudden Increased Bleeding, Increased Pain/ Swelling, Increased Redness and Foul Sm elling Discharge Call your doctor if you observe: Fever of 101 or Higher Suture Line Care: Avoid Pulling/Pushing and Avoid Pinching/Bending Additional Dressing/Incision Instructions:: Leave operative bandaids on for 2 days. When you remove dressing, leave Steri-Strips on until your follow-up appointment, or until the Steri-Strips fall off on their own. Follow Up Care Please Follow Up With: Martha Conley PA-C When: Call office to schedule an appointment to be seen in 7 days after surgery. Test Results: Test results from this visit will be discussed in further detail at your follow- up appointment, if applicable. Discharge Plan Admission Admit Date/Time: 10/13/22 17:51 Attending Provider: Dominique Freed Primary Care Provider: Care Physician,Khadra Primary Consulting Providers: Porfirio Mendoza Discharge Orders/Prescriptions Prescriptions: New oxycodone-acetaminophen [Percocet] 5-325 mg tablet 1 tab PO Q4H PRN (Reason: pain) 5 Days Qty: 20 0RF No Action venlafaxine 75 MG capsule,extended release 24hr 37.5 mg PO QHS Referrals / Follow Up: Care Physician,No Primary [Primary Care Provider] - Martha Conley PA-C [Med Staff - Adv Practice Prof] - Disposition Disposition (needs filled in before D/C Order can be placed): Home, Self Care
[2022-10-15] MEDS: Venlafaxine XR 37.5 MG Capsule PO (20:57)
[2022-10-15] MEDS: MELATONIN 3 MG TABLET PO (22:19)
[2022-10-16] VITALS (7 sets, daily range): BP systolic 118–137; BP diastolic 76–92; PULSE 89–109; RESP 16–20; TEMP 36.8–37.2; O2SAT 89–95
[2022-10-16] MEDS: oxyCODONE 5 MG Tablet 10 MG PO ×2 (03:56→09:00)
[2022-10-16] MEDS: Calcium Carbonate 500 MG Tablet 1000 MG PO ×2 (04:09→22:35)
--- NOTE | 2022-10-16 05:29 | PCM.PN.SRG ---
Subjective Subjective Slept about 4 hours last night. Pain is about the same. No flatus or BM. Objective Data Objective Data Abdomen remains slightly tender and distended. No rebound or peritoneal signs Vital Signs: Vital Signs Temp Pulse Resp BP Pulse Ox O2 Del Method O2 Flow Rate 98.6 F 99 18 137/92 H 94 Nasal Cannula 2 10/16/22 04:05 10/16/22 04:05 10/16/22 04:05 10/16/22 04:05 10/16/22 04:05 10/16/22 04:05 10/16/22 04:05 Oxygen Flow Rate (L/min) 2 Oxygen Delivery Method Nasal Cannula Weight: 171 lb 3 oz Body Mass Index (BMI) 28.5 Intake & Output: Intake and Output for Last 24 Hours 10/14/22 10/15/22 10/16/22 23:59 23:59 23:59 Intake Total 5087.75 / 5087.75 674.25 / 674.25 620 / 620 Output Total 2100 / 2100 1675 / 1675 450 / 450 Balance 2987.75 / 2987.75 -1000.75 / -1000.75 170 / 170 Lab / Micro Data Result Diagrams: 10/15/22 05:54 10/15/22 05:54 Labs: Laboratory Results - last 24 hr 10/15/22 05:54: WBC 9.3, RBC 4.63, Hgb 13.7, Hct 41.7, MCV 90.1, MCH 29.6, MCHC 32.9, RDW Std Deviation 39.9, RDW Coeff of Kim 12.1, Plt Count 256, MPV 9.7, Immature Gran % (Auto) 0.200, Neut % (Auto) 69.9, Lymph % (Auto) 16.6 L, [place] % (Auto) 12.1 H, Eos % (Auto) 0.9, Baso % (Auto) 0.3, Absolute Neuts (auto) 6.5, Absolute Lymphs (auto) 1.54, Nucleated RBC % 0 10/15/22 05:54: Sodium 135 L, Potassium 3.9, Chloride 109 H, Carbon Dioxide 21.0, Anion Gap 5, BUN 9, Creatinine 0.84, Estim Creat Clear Calc 103.72, Est GFR (MDRD) Af Amer 132, Est GFR (MDRD) Non-Af 109, BUN/Creatinine Ratio 10.8, Glucose 105, Calcium 8.5, Total Bilirubin 0.90, AST 68 H, ALT 75 H, Alkaline Phosphatase 66, Total Protein 6.1 L, Albumin 3.1 L, Globulin 3.0, Albumin/Globulin Ratio 1.0 Assessment & Plan Assessment/Plan (1) Cholecystitis, acute with cholelithiasis: PLAN: Postop day #2 Await GI function We will be leaving town this afternoon will have on-call team for the weekend be making rounds starting Thursday
[2022-10-16 06:27] LABS: Absolute Lymphocyte Count 1.31 X10^3/uL (0.83-4.51); Absolute Neutrophil Count 6.6 X10^3/uL (2.0-7.7); Basophil# 0.02 X10^3/uL; Basophil% 0.2 % (0-1); Eosinophil# 0.41 X10^3/uL; Eosinophils% 4.3 % (0-5); Hematocrit 39.2 % (40-54); Hemoglobin 12.9 g/dL (13.0-16.5); Lymphocyte # 1.31 X10^3/ul (0.83-4.51); Lymphocyte % 13.8 % (19-41); Mean Corp Hgb Conc 32.9 g/dL (32-36); Mean Corpuscular Hgb 29.6 pg (27.0-32.0); Mean Corpuscular Volume 89.9 fL (80-94); Mean Platelet Vol. 9.8 fl (6.2-12.0); Monocyte# 1.07 X10^3/uL; Monocyte% 11.3 % (0-10); NRBC Flagged by Analyzer 0 % (0-5); Neutrophil # 6.64 X10^3/uL (2.7-7.7); Neutrophil % 70.1 % (47-70); Platelet Count 246 K/mm3 (150-450); RBC Distribution Width CV 12.4 % (11.6-14.6); Red Blood Count 4.36 M/mm3 (4.6-6.2); White Blood Count 9.5 K/mm3 (4.4-11.0)
[2022-10-16 06:57] LABS: ALB/GLOB Ratio 0.9 RATIO (0.9-2.4); AST(SGOT) 44 U/L (15-37); Alanine Aminotransfer ALT/SGPT 54 U/L (16-61); Albumin, Serum 2.9 g/dL (3.2-5.0); Alkaline Phosphatase 67 U/L (45-117); Anion Gap 5 (5-15); BUN 9 mg/dL (7-18); BUN/Creat Ratio 11.3 RATIO (10-20); Calcium,Total 8.7 mg/dL (8.5-10.1); Chloride 109 mmol/L (98-107); EST Glomerular Filtration Rate 115 mL/min (>60); Est Glom Filt Rate - Afr Amer 139 mL/min (>60); Estimated Creatinine Clearance 108.91 ml/min; Globulin 3.2 g/dL (2.2-4.2); Glucose 115 mg/dL (74-106); Potassium 3.6 mmol/L (3.5-5.1); Protein, Total 6.1 g/dL (6.4-8.2); Sodium Level 136 mmol/L (136-145)
[2022-10-16] MEDS: Pantoprazole Sodium 40 MG Tablet PO (09:00)
[2022-10-16] MEDS: 0.9% Saline Lock 10 ML Syringe IV ×2 (10:24→22:01)
[2022-10-16] MEDS: HYDROmorphone 1 MG/ML Syringe IV (10:24)
--- NOTE | 2022-10-16 12:27 | PN.HOSP_ITS ---
Reason for Visit Reason for Visit: Diagnoses Calculus of gallbladder with acute cholecystitis without obstruction (10/13/22) Right upper quadrant pain (10/13/22) Subjective Subjective Still has not had a bowel movement, still also complaining a lot of pain and does not find the oxycodone helpful and finds the Dilaudid helpful but not for long period of time. Not nauseous but just does not has a great appetite Objective Data Objective Data Vital Signs: Vital Signs Temp Pulse Resp BP Pulse Ox O2 Del Method O2 Flow Rate 98.9 F 109 H 16 128/89 H 95 Room Air 2 10/16/22 11:35 10/16/22 11:35 10/16/22 11:35 10/16/22 11:35 10/16/22 11:35 10/16/22 11:35 10/16/22 07:15 Oxygen Flow Rate (L/min) 2 Oxygen Delivery Method Room Air Weight: 77.649 kg Body Mass Index (BMI) 28.5 Intake & Output: Intake and Output for Last 24 Hours 10/14/22 10/15/22 10/16/22 23:59 23:59 23:59 Intake Total 5087.75 / 5087.75 674.25 / 674.25 925.75 / 925.75 Output Total 2100 / 2100 1675 / 1675 450 / 450 Balance 2987.75 / 2987.75 -1000.75 / -1000.75 475.75 / 475.75 Lab / Micro Data Result Diagrams: 10/16/22 05:50 10/16/22 05:50 Labs: Laboratory Results - last 24 hr 10/16/22 05:50: WBC 9.5, RBC 4.36 L, Hgb 12.9 L, Hct 39.2 L, MCV 89.9, MCH 29.6, MCHC 32.9, RDW Std Deviation 41.0, RDW Coeff of Kim 12.4, Plt Count 246, MPV 9.8, Immature Gran % (Auto) 0.300, Neut % (Auto) 70.1 H, Lymph % (Auto) 13.8 L, [place] % (Auto) 11.3 H, Eos % (Auto) 4.3, Baso % (Auto) 0.2, Absolute Neuts (auto) 6.6, Absolute Lymphs (auto) 1.31, Nucleated RBC % 0 10/16/22 05:50: Sodium 136, Potassium 3.6, Chloride 109 H, Carbon Dioxide 22.0, Anion Gap 5, BUN 9, Creatinine 0.80, Estim Creat Clear Calc 108.91, Est GFR (MDRD) Af Amer 139, Est GFR (MDRD) Non-Af 115, BUN/Creatinine Ratio 11.3, Glucose 115 H, Calcium 8.7, Total Bilirubin 0.80, AST 44 H, ALT 54, Alkaline Phosphatase 67, Total Protein 6.1 L, Albumin 2.9 L, Globulin 3.2, Albumin/Globulin Ratio 0.9 Physical Exam Narrative General: Alert, oriented, appears uncomfortable HEENT: Atraumatic, normocephalic Eyes: Anicteric, normal conjunctiva, extraocular movements grossly intact Neck: Supple Respiratory: Clear to auscultation bilaterally, normal respiratory effort Cardiovascular: Mildly tachycardic and normal rhythm GI: Soft, nondistended, is tender to palpation on the right side of abdomen with no rebound, guarding, rigidity. No other tenderness in left half of abdomen. Hypoactive bowel sounds. Extremities: No edema Musculoskeletal: Moving all extremities Neuro: No overt focal neurological deficits Skin: No rashes appreciated Psych: Cooperative Assessment & Plan Assessment/Plan (1) Abdominal pain, RUQ: PLAN: Plan #Acute cholecystitis with cholelithiasis-status post open cholecystectomy -Had right upper quadrant ultrasound 10/10 which demonstrated cholelithiasis but without increased wall thickness or bile duct dilation -Labs fairly benign in ED lipase negative but certainly has the right-sided abdominal pain -Surgery evaluated and concern for cholecystitis and plan for OR tomorrow with Intra-Op cholangiogram -Was started on fluids at 125 an hour as well as Cipro and Flagyl -Continue Protonix -Given his report of some possible inflammation in his appendix at the outlying facility and change in pain over the past [address] chest abdomen pelvis with contrast ordered. Patient has listed contrast allergy but he reports that he is premedicated with Benadryl he does not have any problems -10/14: CT chest abd pelvis without overt abnormality, it queried shunt abnormality. Shuntogram reports stable exam. For surgery today -10/15: Attempted laparoscopic cholecystectomy converted to open cholecystectomy due to adhesions. Had successful cholecystectomy. We will work on improving pain control and advised to use incentive spirometer. 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 -Denies any current problems -Outpatient management date -10/14: Shuntogram stable exam -10/15: Old shunt noted during surgery and was removed with no manipulation of present shunt and surgical area kept away from present shunt -10/16: Spoke with surgery, continue meropenem until discharge #DVT ppx: SCDs Dominique Freed MD Time spent in the patient's overall evaluation,decision-making process, review of diagnostic data, adjustment of management, discussion with other providers, nursing nursing and ancillary staff involved in patient's care documentation, 30 minutes Charges/Coding Visit Charges Inpatient E&M: 67960 Subs Hosp L2
--- NOTE | 2022-10-16 12:30 | CASEMGMT ---
ESTELLE MARK NOTE: Reviewed therapy notes from yesterday. Pt ambulated w/therapy 15 ft and w/use of WW. Additional therapy recommended. ESTELLE MARK to room. Discussed discharge planning. Pt states he is starting to feel a little stronger and is hopeful that he will not need a walker @ d/c. He states he has a cane at home and states, I think that will be sufficient. Discussed HHC. Pt declines at this time, stating his mother will be staying w/him 24/ for a few days to help him and states, With her help I think I'll be okay. Pt would like to work w/therapy today and tomorrow to see if his strength improves. Pt made aware ESTELLE MARK will f/u with him again tomorrow to see how he is feeling re: WW and HHC and to see if he has any other d/c planning needs. He voices is good w/this plan. Sushil THOMAS RN, CM
[2022-10-16] MEDS: Psyllium 1 PACKET PO ×2 (13:24→15:53)
[2022-10-16] MEDS: Docusate Sodium 100 MG Capsule PO ×2 (13:24→20:49)
[2022-10-16] MEDS: HYDROcodone Bitartrate/Apap 5/325 Tablet PO ×2 (13:25→22:00)
[2022-10-16] MEDS: Lactulose 20 GM/30 ML UDC PO ×3 (14:36→20:49)
[2022-10-16] MEDS: Morphine 2 MG/ML Syringe IV (15:51)
[2022-10-16] MEDS: 0.9% Normal Saline 1,000 ML 100 ML IV (17:40)
[2022-10-16] MEDS: Enoxaparin 40 MG/0.4 ML Syringe SC (18:45)
[2022-10-16] MEDS: Venlafaxine XR 37.5 MG Capsule PO (20:49)
[2022-10-16] MEDS: Senna/Docusate Sodium 1 Tablet 2 TABLET PO (22:30)
[2022-10-17] VITALS (7 sets, daily range): BP systolic 122–146; BP diastolic 84–100; PULSE 99–112; RESP 18–22; TEMP 36.5–37; O2SAT 92–94
[2022-10-17] MEDS: Ondansetron 4 MG/2 ML Vial IV ×2 (00:43→14:13)
[2022-10-17] MEDS: 0.9% Saline Lock 10 ML Syringe IV ×2 (00:45→05:14)
--- NOTE | 2022-10-17 01:17 | RAD_ITS ---
EXAM: XR ABDOMEN, 1 VIEW CLINICAL INDICATION: Vomiting TECHNIQUE: Frontal supine view of the abdomen/pelvis. This report was created using [employer] report generation technology. COMPARISON: None. FINDINGS: LOWER THORAX: No acute pathology. GASTROINTESTINAL TRACT: Moderate amount of stool in the colon. Non-obstructive. No bowel or stomach distention. ORGANS: Unremarkable as visualized. No organomegaly. No abnormal calcifications. BONES/JOINTS: No acute pathology. SOFT TISSUES: No acute pathology. TUBES, LINES AND DEVICES: JOINT FILLER shunt tubing fragments again noted. RAD/Abdomen Single View (Portable) IMPRESSION: Moderate amount of stool in the colon. Electronically Signed: Shree Pan MD at 2:39 EDT ,
[2022-10-17] MEDS: MELATONIN 3 MG TABLET PO (01:24)
[2022-10-17] MEDS: Lactulose 20 GM/30 ML UDC PO (01:25)
[2022-10-17 04:49] LABS: Absolute Lymphocyte Count 0.93 X10^3/uL (0.83-4.51); Absolute Neutrophil Count 8.6 X10^3/uL (2.0-7.7); Basophil# 0.02 X10^3/uL; Basophil% 0.2 % (0-1); Eosinophil# 0.23 X10^3/uL; Eosinophils% 2.2 % (0-5); Lymphocyte # 0.93 X10^3/ul (0.83-4.51); Lymphocyte % 8.9 % (19-41); Mean Corp Hgb Conc 33.3 g/dL (32-36); Mean Corpuscular Hgb 29.3 pg (27.0-32.0); Mean Corpuscular Volume 87.8 fL (80-94); Mean Platelet Vol. 9.8 fl (6.2-12.0); Monocyte# 0.65 X10^3/uL; Monocyte% 6.2 % (0-10); NRBC Flagged by Analyzer 0 % (0-5); Neutrophil # 8.59 X10^3/uL (2.7-7.7); Neutrophil % 82.3 % (47-70); Platelet Count 239 K/mm3 (150-450); RBC Distribution Width CV 12.2 % (11.6-14.6); RBC Distribution Width SD 39.3 fl (35.1-43.9); Red Blood Count 4.44 M/mm3 (4.6-6.2); White Blood Count 10.4 K/mm3 (4.4-11.0)
[2022-10-17] MEDS: proCHLORPERazine 10 MG/2 ML Vial 5 MG IV ×2 (05:13→20:48)
[2022-10-17 06:00] LABS: ALB/GLOB Ratio 0.8 RATIO (0.9-2.4); AST(SGOT) 41 U/L (15-37); Alanine Aminotransfer ALT/SGPT 51 U/L (16-61); Alkaline Phosphatase 71 U/L (45-117); Anion Gap 5 (5-15); BUN 10 mg/dL (7-18); BUN/Creat Ratio 13.2 RATIO (10-20); Calcium,Total 9.2 mg/dL (8.5-10.1); Chloride 106 mmol/L (98-107); Creatinine, Serum 0.76 mg/dL (0.70-1.30); EST Glomerular Filtration Rate 122 mL/min (>60); Est Glom Filt Rate - Afr Amer 147 mL/min (>60); Estimated Creatinine Clearance 114.64 ml/min; Globulin 3.7 g/dL (2.2-4.2); Glucose 129 mg/dL (74-106); Potassium 3.8 mmol/L (3.5-5.1); Protein, Total 6.7 g/dL (6.4-8.2); Sodium Level 135 mmol/L (136-145)
--- NOTE | 2022-10-17 06:24 | PN.HOSP_ITS ---
Reason for Visit Reason for Visit: Diagnoses Calculus of gallbladder with acute cholecystitis without obstruction (10/13/22) Right upper quadrant pain (10/13/22) Subjective Subjective Patient still reporting no BM and abdominal pain, had been nauseous but was not at the time of exam though still not particularly hungry Objective Data Objective Data Vital Signs: Vital Signs Temp Pulse Resp BP Pulse Ox O2 Del Method O2 Flow Rate 98.4 F 106 H 22 H 122/89 H 92 Nasal Cannula 2 10/17/22 04:39 10/17/22 04:39 10/17/22 04:39 10/17/22 04:39 10/17/22 04:39 10/17/22 04:39 10/17/22 04:39 Oxygen Flow Rate (L/min) 2 Oxygen Delivery Method Nasal Cannula Weight: 77.649 kg Body Mass Index (BMI) 28.5 Intake & Output: Intake and Output for Last 24 Hours 10/15/22 10/16/22 10/17/22 23:59 23:59 23:59 Intake Total 674.25 / 674.25 1149.75 / 1149.75 1026.67 / 1026.67 Output Total 1675 / 1675 1100 / 1100 Balance -1000.75 / -1000.75 49.75 / 49.75 1026.67 / 1026.67 Lab / Micro Data Result Diagrams: 10/17/22 04:25 10/17/22 04:25 Labs: Laboratory Results - last 24 hr 10/16/22 05:50: WBC 9.5, RBC 4.36 L, Hgb 12.9 L, Hct 39.2 L, MCV 89.9, MCH 29.6, MCHC 32.9, RDW Std Deviation 41.0, RDW Coeff of Kim 12.4, Plt Count 246, MPV 9.8, Immature Gran % (Auto) 0.300, Neut % (Auto) 70.1 H, Lymph % (Auto) 13.8 L, [place] % (Auto) 11.3 H, Eos % (Auto) 4.3, Baso % (Auto) 0.2, Absolute Neuts (auto) 6.6, Absolute Lymphs (auto) 1.31, Nucleated RBC % 0 10/16/22 05:50: Sodium 136, Potassium 3.6, Chloride 109 H, Carbon Dioxide 22.0, Anion Gap 5, BUN 9, Creatinine 0.80, Estim Creat Clear Calc 108.91, Est GFR (MDRD) Af Amer 139, Est GFR (MDRD) Non-Af 115, BUN/Creatinine Ratio 11.3, Glucose 115 H, Calcium 8.7, Total Bilirubin 0.80, AST 44 H, ALT 54, Alkaline Phosphatase 67, Total Protein 6.1 L, Albumin 2.9 L, Globulin 3.2, Albumin/Globulin Ratio 0.9 10/17/22 04:25: WBC 10.4, RBC 4.44 L, Hgb 13.0, Hct 39.0 L, MCV 87.8, MCH 29.3, MCHC 33.3, RDW Std Deviation 39.3, RDW Coeff of Kim 12.2, Plt Count 239, MPV 9.8, Immature Gran % (Auto) 0.200, Neut % (Auto) 82.3 H, Lymph % (Auto) 8.9 L, [place] % (Auto) 6.2, Eos % (Auto) 2.2, Baso % (Auto) 0.2, Absolute Neuts (auto) 8.6 H, Absolute Lymphs (auto) 0.93, Nucleated RBC % 0 10/17/22 04:25: Sodium 135 L, Potassium 3.8, Chloride 106, Carbon Dioxide 24.0, Anion Gap 5, BUN 10, Creatinine 0.76, Estim Creat Clear Calc 114.64, Est GFR (MDRD) Af Amer 147, Est GFR (MDRD) Non-Af 122, BUN/Creatinine Ratio 13.2, Glucose 129 H, Calcium 9.2, Total Bilirubin 0.90, AST 41 H, ALT 51, Alkaline Phosphatase 71, Total Protein 6.7, Albumin 3.0 L, Globulin 3.7, Albumin/Globulin Ratio 0.8 L Radiography Diagnostic Testing: Radiology Impression KUB X-Ray 10/17/22 01:17 IMPRESSION: Moderate amount of stool in the colon. Electronically Signed: Shree Pan MD at 2:39 EDT , Physical Exam Narrative General: Alert, oriented, appears uncomfortable HEENT: Atraumatic, normocephalic Eyes: Anicteric, normal conjunctiva, extraocular movements grossly intact Neck: Supple Respiratory: Clear to auscultation bilaterally, normal respiratory effort Cardiovascular: Mildly tachycardic and normal rhythm GI: Hypoactive bowel sounds. Some generalized tenderness, more firm than yesterday Extremities: No edema Musculoskeletal: Moving all extremities Neuro: No overt focal neurological deficits Skin: No rashes appreciated Psych: Cooperative Assessment & Plan Assessment/Plan (1) Abdominal pain, RUQ: PLAN: Plan #Acute cholecystitis with cholelithiasis-status post open cholecystectomy -Had right upper quadrant ultrasound 10/10 which demonstrated cholelithiasis but without increased wall thickness or bile duct dilation -Labs fairly benign in ED lipase negative but certainly has the right-sided abdominal pain -Surgery evaluated and concern for cholecystitis and plan for OR tomorrow with Intra-Op cholangiogram -Was started on fluids at 125 an hour as well as Cipro and Flagyl -Continue Protonix -Given his report of some possible inflammation in his appendix at the outlying facility and change in pain over the past [address] chest abdomen pelvis with contrast ordered. Patient has listed contrast allergy but he reports that he is premedicated with Benadryl he does not have any problems -10/14: CT chest abd pelvis without overt abnormality, it queried shunt abnormality. Shuntogram reports stable exam. For surgery today -10/15: Attempted laparoscopic cholecystectomy converted to open cholecystectomy due to adhesions. Had successful cholecystectomy. We will work on improving pain control and advised to use incentive spirometer. On Merrem, also received 1 dose of vancomycin -10/16: Has not had bowel movement, escalating bowel regimen and adjusting pain medication to help better treat pain -10/17: Continues to not have bowel movements but has been minimally ambulatory and taking frequent pain medication which is likely exacerbating this, soapsuds enema this morning without good results, added Dulcolax enema. Patient did not have rebound or guarding at time of exam but did appear somewhat uncomfortable and had hypoactive bowel sounds. Her blood cell count today within normal limits, lactic acid normal, KUB just showed stool in colon. Surgery ordered CT with oral contrast which may be a diagnostic and therapeutic. Awaiting results. Given suboptimal p.o. intake started on fluids. Additionally surgery added Toradol 30 IV every 8 scheduled to help with pain control and increased frequency with which she could get his pain medication #History of spina bifida and [employer] shunt -Denies any current problems -Outpatient management date -10/14: Shuntogram stable exam -10/15: Old shunt noted during surgery and was removed with no manipulation of present shunt and surgical area kept away from present shunt -10/16: Spoke with surgery, continue meropenem until discharge #DVT ppx: SCDs Dominique Freed MD Time spent in the patient's overall evaluation,decision-making process, review of diagnostic data, adjustment of management, discussion with other providers, nursing nursing and ancillary staff involved in patient's care documentation, 30 minutes Charges/Coding Visit Charges Inpatient E&M: 39821 Subs Hosp L2
[2022-10-17] MEDS: Enoxaparin 40 MG/0.4 ML Syringe SC (06:55)
--- NOTE | 2022-10-17 06:57 | NURSING ---
0600 Dose of Lactulose is hanging out patient has refused it two times. Patient thinks he could take it in another hour or so. Soap suds enema given. Patient is retaining fluid at this time.
[2022-10-17] MEDS: Morphine 2 MG/ML Syringe IV ×2 (08:19→11:28)
--- NOTE | 2022-10-17 12:14 | CASEMGMT ---
Addendum entered by Juan C Kirkland 10/17/22 12:46: Script for WW received from Dr Freed and placed on pt's chart w/Green sheet so WW can be delivered to pt in the event he is ready for discharge over the w/e. Original Note: ESTELLE MARK NOTE: Therapy notes reviewed from yesterday. Additional therapy/HHC is recommended. ESTELLE CM to room to talk w/pt and mother who is at bedside. Pt declines wanting HHC at discharge. Pt's mother confirms she will be going to pt's home @ [place] and can assist as needed. Pt has 15 steps to get into home and he states he feels he will be able to get up them well and has no concerns. Discussed WW, as pt has been using one while here. He states he does want one @ d/c. He states has no preference of DME co, made aware [facility] [place] and states is agreeable w[place]. Pt is not sure of his insurance benefits, states he is aware they may not cover for WW and that he may receive a bill from [facility] for WW. Pt does not have a PCP and is interested in getting list of local PCP's. Given at this time. Pt and mother deny having other discharge planning needs at this time. Sushil THOMAS RN, CM
[2022-10-17] MEDS: 0.9% Normal Saline 1,000 ML 100 ML IV (12:26)
[2022-10-17] MEDS: Bisacodyl 10 MG Suppository RC (12:26)
[2022-10-17 13:11] LABS: Lactic Acid 1.6 mmol/L (0.4-1.9)
--- NOTE | 2022-10-17 13:55 | PCM.PN.SRG ---
Subjective Subjective patient complaint of sharp generalized abdominal pain - states that it is non localized states that he has not passed flatus since surgery, no bowel movement since surgery feels constipated Objective Data Objective Data Vital Signs: Vital Signs Temp Pulse Resp BP Pulse Ox O2 Del Method O2 Flow Rate 98.6 F 101 H 18 131/90 H 94 Nasal Cannula 2 10/17/22 10:33 10/17/22 10:10/17/22 10:10/17/22 10:33 10/17/22 10:10/17/22 10:10/17/22 10:33 Oxygen Flow Rate (L/min) 2 Oxygen Delivery Method Nasal Cannula Weight: 77.649 kg Body Mass Index (BMI) 28.5 Intake & Output: Intake and Output for Last 24 Hours 10/15/22 10/16/22 10/17/22 23:59 23:59 23:59 Intake Total 674.25 / 674.25 1149.75 / 1149.75 1329.67 / 1329.67 Output Total 1675 / 1675 1100 / 1100 600 / 600 Balance -1000.75 / -1000.75 49.75 / 49.75 729.67 / 729.67 Lab / Micro Data Attestation: I reviewed the patient's lab results. Result Diagrams: 10/17/22 04:25 10/17/22 04:25 Labs: Laboratory Results - last 24 hr 10/17/22 04:25: WBC 10.4, RBC 4.44 L, Hgb 13.0, Hct 39.0 L, MCV 87.8, MCH 29.3, MCHC 33.3, RDW Std Deviation 39.3, RDW Coeff of Kim 12.2, Plt Count 239, MPV 9.8, Immature Gran % (Auto) 0.200, Neut % (Auto) 82.3 H, Lymph % (Auto) 8.9 L, [place] % (Auto) 6.2, Eos % (Auto) 2.2, Baso % (Auto) 0.2, Absolute Neuts (auto) 8.6 H, Absolute Lymphs (auto) 0.93, Nucleated RBC % 0 10/17/22 04:25: Sodium 135 L, Potassium 3.8, Chloride 106, Carbon Dioxide 24.0, Anion Gap 5, BUN 10, Creatinine 0.76, Estim Creat Clear Calc 114.64, Est GFR (MDRD) Af Amer 147, Est GFR (MDRD) Non-Af 122, BUN/Creatinine Ratio 13.2, Glucose 129 H, Calcium 9.2, Total Bilirubin 0.90, AST 41 H, ALT 51, Alkaline Phosphatase 71, Total Protein 6.7, Albumin 3.0 L, Globulin 3.7, Albumin/Globulin Ratio 0.8 L 10/17/22 12:35: Lactic Acid 1.6 Radiography Diagnostic Testing: Radiology Impression KUB X-Ray 10/17/22 01:17 IMPRESSION: Moderate amount of stool in the colon. Electronically Signed: Shree Pan MD at 2:39 EDT , Physical Exam Const alert and oriented x3 Constitutional Narrative: not comfortable appearing Neck supple Resp normal respiratory effort Effort and Inspection: able to speak in complete sentences GI GI Narrative: generalized tenderness with slight guarding dressings intact with no seepage Assessment & Plan Assessment/Plan (1) Status post cholecystectomy: PLAN: see below PLAN: Plan possible ileus s/p open cholecystectomy, patient has known spina bifida and has not ambulated or been out of bed since surgery (according to nurses) has trialed suppository/enemas/lactulose/etc with no success has normal WBC (though slight left shift), normal lactic acid - I do not suspect any major intraabdominal complications will increase interval of pain medications will add toradol round the clock will order CT scan with gastrografin - may be diagnostic and therapeutic discussed above with patient and his mother Further surgical care by oncall surgeon this weekend - Dr. Dee
--- NOTE | 2022-10-17 14:08 | CT_ITS ---
We are attempting to reach an attending provider to discuss findings. An addendum with communication details will be sent when the communication is complete. EXAM: CT ABDOMEN AND PELVIS WITHOUT INTRAVENOUS CONTRAST CLINICAL INDICATION: abdominal pain TECHNIQUE: Helically acquired images were obtained of the abdomen and pelvis without intravenous contrast. This CT exam was performed using one or more of the following dose reduction techniques: automated exposure control, adjustment of the mA and/or kV according to patient size, and/or use of iterative reconstruction technique. CONTRAST: Oral and amp;amp; IV Gastrografin and amp;amp; COMPARISON: 10/13/2022 FINDINGS: LOWER THORAX: There are is bilateral lower lobe consolidation compatible with pneumonia which was not present on the previous exam. No cardiomegaly. No significant pericardial effusion. ABDOMEN: LIVER: Unremarkable. Homogeneous. GALLBLADDER AND BILE DUCTS: Unremarkable. No calcified gallstones. No gallbladder distention or wall edema. No intra- or extrahepatic biliary ductal dilation. PANCREAS: Unremarkable. No focal cystic mass. SPLEEN: Unremarkable. Normal size without focal cystic or solid mass. ADRENALS: Unremarkable. No nodules. KIDNEYS AND URETERS: Unremarkable. Normal renal size and position. No hydronephrosis. STOMACH AND BOWEL: There are dilated fluid-filled loops of small bowel in the left mid abdomen compatible with an obstruction. This may possibly represent a closed loop obstruction with mild swirling of the mesentery. There is no bowel wall thickening or evidence of ischemia. There is no perforation. PELVIS: APPENDIX: No evidence of acute appendicitis. BLADDER: Unremarkable. REPRODUCTIVE: Unremarkable as visualized. No mass. ABDOMEN and PELVIS: INTRAPERITONEAL SPACE: There is fluid seen in the anterior abdomen may represent ascites. No free air. BONES/JOINTS: Unremarkable. No suspicious lytic or blastic abnormality. SOFT TISSUES: Unremarkable. No discrete abdominal or pelvic wall hernia. VASCULATURE: Unremarkable. Abdominal aorta is non-dilated. LYMPH NODES: Unremarkable. No enlarged lymph nodes. CT/Abdomen/Pel W ORAL Cont Only IMPRESSION: 1. Dilated fluid-filled loops of small bowel in the left mid abdomen with apparent swirling of the mesentery possibly representing a closed loop obstruction. There is no bowel wall thickening or ischemia. There is no perforation. 2. Interval development of bilateral lower lobe consolidation which may represent pneumonia. 3. Small amount of free fluid in the upper abdomen which may represent ascites. Electronically Signed: Maximo Lopez MD at 20:43 EDT ,
[2022-10-17] MEDS: Ketorolac 30 MG/ML Syringe IV ×2 (14:13→22:17)
--- NOTE | 2022-10-17 16:19 | NURSING ---
pt to ct scan. pt refused to drink all of contrast. pt stated it it hurt his stomach.
[2022-10-17 17:15] LABS: Allen Test Positive; Base Excess 0 mmol/L (-2 to +2); Bicarbonate 22.9 mmol/L (22-26); Blood Gas Specimen Type ART; FI02 21; PO2 74 mmHG (75-100); SITE L Radial; SO2 97 % (95-99); Total Carbon Dioxide 24 mmol/L; pCO2 26.6 mmHg (35-45); pH 7.54 (7.35-7.45)
--- NOTE | 2022-10-17 20:04 | RAD_ITS ---
EXAM: XR ABDOMEN, 1 VIEW CLINICAL INDICATION: ng placement TECHNIQUE: Frontal supine view of the abdomen/pelvis. COMPARISON: 10/09/2022 at 0128 hours FINDINGS: LOWER THORAX: No acute pathology. GASTROINTESTINAL TRACT: There are gas-filled loops of large and small bowel which may represent mild ileus. ORGANS: Unremarkable as visualized. No organomegaly. No abnormal calcifications. BONES/JOINTS: No acute pathology. SOFT TISSUES: No acute pathology. TUBES, LINES AND DEVICES: Nasogastric tube is in place the distal tip in the mid stomach. RAD/Abdomen Single View (Portable) IMPRESSION: 1. Bibasilar airspace disease which may represent atelectasis or pneumonia. 2. Nasogastric tube with the distal tip in the mid stomach. 3. Gas-filled loops of large and small bowel which may represent an ileus. Electronically Signed: Maximo Lopez MD at 21:17 EDT ,
[2022-10-17] MEDS: BENZOCAINE/MENTHOL 1 LOZENGE 2 LOZENGE MUCOUS MEM (23:08)
[2022-10-18] MEDS: 0.9% Normal Saline 1,000 ML 100 ML IV ×2 (02:33→09:57)
[2022-10-18 02:34] VITALS: BP 126/89; PULSE 100; RESP 18; TEMP 36.9; O2SAT 94
[2022-10-18] MEDS: Enoxaparin 40 MG/0.4 ML Syringe SC (06:01)
[2022-10-18] MEDS: Ketorolac 30 MG/ML Syringe IV ×3 (06:02→21:40)
[2022-10-18 06:15] LABS: Absolute Lymphocyte Count 1.21 X10^3/uL (0.83-4.51); Absolute Neutrophil Count 5.7 X10^3/uL (2.0-7.7); Basophil# 0.02 X10^3/uL; Basophil% 0.3 % (0-1); Hematocrit 34.3 % (40-54); Hemoglobin 11.6 g/dL (13.0-16.5); Lymphocyte # 1.21 X10^3/ul (0.83-4.51); Lymphocyte % 15.1 % (19-41); Mean Corp Hgb Conc 33.8 g/dL (32-36); Mean Corpuscular Hgb 30.1 pg (27.0-32.0); Mean Corpuscular Volume 89.1 fL (80-94); Monocyte% 8.8 % (0-10); NRBC Flagged by Analyzer 0 % (0-5); Neutrophil # 5.65 X10^3/uL (2.7-7.7); Neutrophil % 70.5 % (47-70); Platelet Count 246 K/mm3 (150-450); RBC Distribution Width CV 12.3 % (11.6-14.6); RBC Distribution Width SD 40.2 fl (35.1-43.9); Red Blood Count 3.85 M/mm3 (4.6-6.2)
[2022-10-18 07:15] LABS: ALB/GLOB Ratio 0.7 RATIO (0.9-2.4); AST(SGOT) 32 U/L (15-37); Alanine Aminotransfer ALT/SGPT 38 U/L (16-61); Albumin, Serum 2.7 g/dL (3.2-5.0); Alkaline Phosphatase 62 U/L (45-117); Anion Gap 4 (5-15); BUN 19 mg/dL (7-18); BUN/Creat Ratio 24.2 RATIO (10-20); Calcium,Total 8.5 mg/dL (8.5-10.1); Chloride 109 mmol/L (98-107); Creatinine, Serum 0.79 mg/dL (0.70-1.30); EST Glomerular Filtration Rate 117 mL/min (>60); Est Glom Filt Rate - Afr Amer 141 mL/min (>60); Estimated Creatinine Clearance 110.28 ml/min; Globulin 3.7 g/dL (2.2-4.2); Glucose 105 mg/dL (74-106); Potassium 3.3 mmol/L (3.5-5.1); Protein, Total 6.4 g/dL (6.4-8.2); Sodium Level 139 mmol/L (136-145)
--- NOTE | 2022-10-18 07:59 | PN.SURG_ITS ---
Subjective Subjective Patient states pain is improved with the NG. Required about 600 for yesterday patient has 200 from this morning in the container. Patient states he did pass a small amount of gas. Patient states he was willing to get up with therapy today. Objective Data Objective Data Vital Signs: Vital Signs Temp Pulse Resp BP Pulse Ox O2 Del Method O2 Flow Rate 98.4 F 100 18 126/89 H 94 Room Air 2 10/18/22 02:34 10/18/22 02:34 10/18/22 02:34 10/18/22 02:34 10/18/22 02:34 10/18/22 02:34 10/17/22 10:33 Oxygen Flow Rate (L/min) 2 Oxygen Delivery Method Room Air Weight: 171 lb 3 oz Body Mass Index (BMI) 28.5 Intake & Output: Intake and Output for Last 24 Hours 10/16/22 10/17/22 10/18/22 23:59 23:59 23:59 Intake Total 1149.75 / 1149.75 1679.67 / 1679.67 1180 / 1180 Output Total 1100 / 1100 950 / 950 1150 / 1150 Balance 49.75 / 49.75 729.67 / 729.67 Lab / Micro Data Result Diagrams: 10/19/22 05:50 10/19/22 05:50 Labs: Laboratory Results - last 24 hr 10/17/22 12:35: Lactic Acid 1.6 10/18/22 05:50: WBC 8.0, RBC 3.85 L, Hgb 11.6 L, Hct 34.3 L, MCV 89.1, MCH 30.1, MCHC 33.8, RDW Std Deviation 40.2, RDW Coeff of Kim 12.3, Plt Count 246, MPV 10.0, Immature Gran % (Auto) 0.300, Neut % (Auto) 70.5 H, Lymph % (Auto) 15.1 L, [place] % (Auto) 8.8, Eos % (Auto) 5.0, Baso % (Auto) 0.3, Absolute Neuts (auto) 5.7, Absolute Lymphs (auto) 1.21, Nucleated RBC % 0 10/18/22 05:50: Sodium 139, Potassium 3.3 L, Chloride 109 H, Carbon Dioxide 26.0, Anion Gap 4 L, BUN 19 H, Creatinine 0.79, Estim Creat Clear Calc 110.28, Est GFR (MDRD) Af Amer 141, Est GFR (MDRD) Non-Af 117, BUN/Creatinine Ratio 24.2 H, Glucose 105, Calcium 8.5, Total Bilirubin 0.80, AST 32, ALT 38, Alkaline Phosphatase 62, Total Protein 6.4, Albumin 2.7 L, Globulin 3.7, Albumin/Globulin Ratio 0.7 L ABG Data ABG results: ABG 10/17/22 17:08 Specimen Type ART Sample Site L Radial pH 7.54 H Bicarbonate Actual 22.9 Total CO2 24 Base Excess 0 O2 Saturation 97 O2 % 21 ABG pCO2 26.6 L ABG pO2 74 L Beto Test Positive Radiography Diagnostic Testing: Radiology Impression Abdomen CT 10/17/22 14:08 IMPRESSION: 1. Dilated fluid-filled loops of small bowel in the left mid abdomen with apparent swirling of the mesentery possibly representing a closed loop obstruction. There is no bowel wall thickening or ischemia. There is no perforation. 2. Interval development of bilateral lower lobe consolidation which may represent pneumonia. 3. Small amount of free fluid in the upper abdomen which may represent ascites. Electronically Signed: Maximo Lopez MD at 20:43 EDT , ADDENDUM: 10/17/222102 IMPRESSION: 1. Dilated fluid-filled loops of small bowel in the left mid abdomen with apparent swirling of the mesentery possibly representing a closed loop obstruction. There is no bowel wall thickening or ischemia. There is no perforation. 2. Interval development of bilateral lower lobe consolidation which may represent pneumonia. 3. Small amount of free fluid in the upper abdomen which may represent ascites. N.B. : The above Results were Read Back by Maximo Lopez MD to Dr. Evaristo Zurita MD, and understanding confirmed on 10/17/2022 20:56:47 (ET). Electronically Signed: Maximo Lopez MD at 20:43 EDT , KUB X-Ray 10/17/22 20:04 IMPRESSION: 1. Bibasilar airspace disease which may represent atelectasis or pneumonia. 2. Nasogastric tube with the distal tip in the mid stomach. 3. Gas-filled loops of large and small bowel which may represent an ileus. Electronically Signed: Maximo Lopez MD at 21:17 EDT , Physical Exam Narrative NG in place Const oriented x3 and no apparent distress Resp normal respiratory effort GI soft to palpation GI Narrative: Tender near right upper quadrant incision dressing clean dry and intact, no peritoneal signs Assessment & Plan Assessment/Plan (1) Status post cholecystectomy: PLAN: Plan Continue NG currently until increased bowel function. Okay for meds p.o. instead of NG. We will discontinue any laxatives. Encourage ambulation Sylvie Dee M.D. Pager: [phone] [facility] [address] [place] [address], [facility], [address] [place] [address] Office: [phone]
[2022-10-18 08:00] VITALS: BP 122/77; PULSE 74; RESP 16; TEMP 36.9; O2SAT 91
[2022-10-18] MEDS: Docusate Sodium 100 MG/10 ML UDC NG (08:36)
[2022-10-18] MEDS: Venlafaxine HCl 25 MG Tablet 12.5 MG NG (08:37)
[2022-10-18] MEDS: Lactulose 20 GM/30 ML UDC NG ×2 (08:37→13:31)
[2022-10-18] MEDS: Potassium Chloride 10mEq/100mL 10 MEQ/100 ML IV.SOLN. 100 MEQ IV BOLUS ×2 (09:58→11:18)
--- NOTE | 2022-10-18 11:27 | PCM.PN.HOSP ---
Reason for Visit Reason for Visit: Diagnoses Calculus of gallbladder with acute cholecystitis without obstruction (10/13/22) Right upper quadrant pain (10/13/22) Acquired absence of other specified parts of digestive tract (10/13/22) Subjective Subjective Does feel better since NG tube was placed, has noted passing gas, not yet had a bowel movement Objective Data Objective Data Vital Signs: Vital Signs Temp Pulse Resp BP Pulse Ox O2 Del Method O2 Flow Rate 98.4 F 74 16 122/77 H 91 Room Air 2 10/18/22 08:00 10/18/22 08:00 10/18/22 08:00 10/18/22 08:00 10/18/22 08:00 10/18/22 08:14 10/17/22 10:33 Oxygen Flow Rate (L/min) 2 Oxygen Delivery Method Room Air Weight: 77.649 kg Body Mass Index (BMI) 28.5 Intake & Output: Intake and Output for Last 24 Hours 10/16/22 10/17/22 10/18/22 23:59 23:59 23:59 Intake Total 1149.75 / 1149.75 1679.67 / 1679.67 2170 / 2170 Output Total 1100 / 1100 950 / 950 1150 / 1150 Balance 49.75 / 49.75 729.67 / 729.67 1020 / 1020 Lab / Micro Data Result Diagrams: 10/18/22 05:50 10/18/22 05:50 Labs: Laboratory Results - last 24 hr 10/17/22 12:35: Lactic Acid 1.6 10/18/22 05:50: WBC 8.0, RBC 3.85 L, Hgb 11.6 L, Hct 34.3 L, MCV 89.1, MCH 30.1, MCHC 33.8, RDW Std Deviation 40.2, RDW Coeff of Kim 12.3, Plt Count 246, MPV 10.0, Immature Gran % (Auto) 0.300, Neut % (Auto) 70.5 H, Lymph % (Auto) 15.1 L, [place] % (Auto) 8.8, Eos % (Auto) 5.0, Baso % (Auto) 0.3, Absolute Neuts (auto) 5.7, Absolute Lymphs (auto) 1.21, Nucleated RBC % 0 10/18/22 05:50: Sodium 139, Potassium 3.3 L, Chloride 109 H, Carbon Dioxide 26.0, Anion Gap 4 L, BUN 19 H, Creatinine 0.79, Estim Creat Clear Calc 110.28, Est GFR (MDRD) Af Amer 141, Est GFR (MDRD) Non-Af 117, BUN/Creatinine Ratio 24.2 H, Glucose 105, Calcium 8.5, Total Bilirubin 0.80, AST 32, ALT 38, Alkaline Phosphatase 62, Total Protein 6.4, Albumin 2.7 L, Globulin 3.7, Albumin/Globulin Ratio 0.7 L ABG Data ABG results: ABG 10/17/22 17:08 Specimen Type ART Sample Site L Radial pH 7.54 H Bicarbonate Actual 22.9 Total CO2 24 Base Excess 0 O2 Saturation 97 O2 % 21 ABG pCO2 26.6 L ABG pO2 74 L Beto Test Positive Radiography Diagnostic Testing: Radiology Impression Abdomen CT 10/17/22 14:08 IMPRESSION: 1. Dilated fluid-filled loops of small bowel in the left mid abdomen with apparent swirling of the mesentery possibly representing a closed loop obstruction. There is no bowel wall thickening or ischemia. There is no perforation. 2. Interval development of bilateral lower lobe consolidation which may represent pneumonia. 3. Small amount of free fluid in the upper abdomen which may represent ascites. Electronically Signed: Maximo Lopez MD at 20:43 EDT , ADDENDUM: 10/17/222102 IMPRESSION: 1. Dilated fluid-filled loops of small bowel in the left mid abdomen with apparent swirling of the mesentery possibly representing a closed loop obstruction. There is no bowel wall thickening or ischemia. There is no perforation. 2. Interval development of bilateral lower lobe consolidation which may represent pneumonia. 3. Small amount of free fluid in the upper abdomen which may represent ascites. N.B. : The above Results were Read Back by Maximo Lopez MD to Dr. Evaristo Zurita MD, and understanding confirmed on 10/17/2022 20:56:47 (ET). Electronically Signed: Maximo Lopez MD at 20:43 EDT , KUB X-Ray 10/17/22 20:04 IMPRESSION: 1. Bibasilar airspace disease which may represent atelectasis or pneumonia. 2. Nasogastric tube with the distal tip in the mid stomach. 3. Gas-filled loops of large and small bowel which may represent an ileus. Electronically Signed: Maximo Lopez MD at 21:17 EDT , Physical Exam Narrative General: Alert, oriented, appears more comfortable HEENT: Atraumatic, normocephalic Eyes: Anicteric, normal conjunctiva, extraocular movements grossly intact Neck: Supple Respiratory: Clear to auscultation bilaterally, normal respiratory effort Cardiovascular: Regular rate and rhythm GI: Softer and less tender and distended, no rebound, guarding, rigidity, NG tube in place Extremities: No edema Musculoskeletal: Moving all extremities Neuro: No overt focal neurological deficits Skin: No rashes appreciated Psych: Cooperative Assessment & Plan Assessment/Plan (1) Abdominal pain, RUQ: PLAN: Plan #Postop ileus/constipation -CT scan 10/17 with dilated fluid-filled loops of small bowel in the left mid abdomen with no bowel wall thickening or ischemia -NG tube placed 10/17 due to nausea and pain and lack of BM or passing gas, patient had significant relief with NG tube placement -KUB after demonstrated NG with distal tip in the mid stomach with gas filled loops of large and small bowel which may represent ileus -Continue bowel regimen -Patient now passing gas -Of note imaging queried pneumonia versus atelectasis, speaking with patient over the past several days he reports taking very shallow breaths intentionally to avoid pain despite education and incentive spirometer provided. High suspicion that this is due to atelectasis and not pneumonia but will continue to monitor labs and vitals #Acute cholecystitis with cholelithiasis-status post open cholecystectomy -Had right upper quadrant ultrasound 10/10 which demonstrated cholelithiasis but without increased wall thickness or bile duct dilation -Labs fairly benign in ED lipase negative but certainly has the right-sided abdominal pain -Surgery evaluated and concern for cholecystitis and plan for OR tomorrow with Intra-Op cholangiogram -Was started on fluids at 125 an hour as well as Cipro and Flagyl -Continue Protonix -Given his report of some possible inflammation in his appendix at the outlying facility and change in pain over the past [address] chest abdomen pelvis with contrast ordered. Patient has listed contrast allergy but he reports that he is premedicated with Benadryl he does not have any problems -10/14: CT chest abd pelvis without overt abnormality, it queried shunt abnormality. Shuntogram reports stable exam. For surgery today -10/15: Attempted laparoscopic cholecystectomy converted to open cholecystectomy due to adhesions. Had successful cholecystectomy. We will work on improving pain control and advised to use incentive spirometer. On Merrem, also received 1 dose of vancomycin -10/16: Has not had bowel movement, escalating bowel regimen and adjusting pain medication to help better treat pain -10/17: Continues to not have bowel movements but has been minimally ambulatory and taking frequent pain medication which is likely exacerbating this, soapsuds enema this morning without good results, added Dulcolax enema. Patient did not have rebound or guarding at time of exam but did appear somewhat uncomfortable and had hypoactive bowel sounds. Her blood cell count today within normal limits, lactic acid normal, KUB just showed stool in colon. Surgery ordered CT with oral contrast which may be a diagnostic and therapeutic. Awaiting results. Given suboptimal p.o. intake started on fluids. Additionally surgery added Toradol 30 IV every 8 scheduled to help with pain control and increased frequency with which she could get his pain medication -10/18: Presently on fluids, Merrem, pain control. NG tube is above #History of spina bifida and [employer] shunt -Denies any current problems -Outpatient management date -10/14: Shuntogram stable exam -10/15: Old shunt noted during surgery and was removed with no manipulation of present shunt and surgical area kept away from present shunt -10/16: Spoke with surgery, continue meropenem until discharge #DVT ppx: SCDs Dominique Freed MD Time spent in the patient's overall evaluation,decision-making process, review of diagnostic data, adjustment of management, discussion with other providers, nursing nursing and ancillary staff involved in patient's care documentation, 30 minutes Charges/Coding Visit Charges Inpatient E&M: 08181 Subs Hosp L2
[2022-10-18] MEDS: Morphine 2 MG/ML Syringe IV (14:08)
[2022-10-18] MEDS: 0.9% Saline Lock 10 ML Syringe IV ×2 (14:08→21:40)
[2022-10-18 16:41] VITALS: BP 136/91; PULSE 80; RESP 16; TEMP 36.8; O2SAT 95
[2022-10-18 21:30] VITALS: O2SAT 92
[2022-10-18] MEDS: Venlafaxine HCl 25 MG Tablet NG (21:40)
[2022-10-18 22:00] VITALS: BP 131/97; PULSE 88; RESP 18; TEMP 37.6; O2SAT 92
[2022-10-18] MEDS: 0.9% Normal Saline 1,000 ML 75 ML IV (22:22)
--- NOTE | 2022-10-18 23:12 | NURSING ---
ng was clamped from 2200 until 2300 after medication administration. Well tolerated.
[2022-10-19 03:21] VITALS: BP 131/74; PULSE 67; RESP 18; TEMP 37.2; O2SAT 92
[2022-10-19] MEDS: Morphine 2 MG/ML Syringe IV ×3 (03:51→22:07)
[2022-10-19] MEDS: 0.9% Saline Lock 10 ML Syringe IV ×6 (03:51→22:15)
[2022-10-19] MEDS: Ondansetron 4 MG/2 ML Vial IV ×2 (04:11→22:15)
[2022-10-19] MEDS: Ketorolac 30 MG/ML Syringe IV ×3 (05:32→21:19)
[2022-10-19] MEDS: Enoxaparin 40 MG/0.4 ML Syringe SC (05:38)
--- NOTE | 2022-10-19 05:55 | RAD_ITS ---
STUDY: X-RAY - ABDOMEN/PELVIS REASON FOR EXAM: Male, 36 years old. Abdominal pain and distention TECHNIQUE: Two AP supine views of the abdomen and pelvis. COMPARISON: None. FINDINGS: Lung bases show airspace opacifications in the lower lung lopez. There is an NG tube tip in the body the stomach and a right-sided stent noted. There is a moderate amount of colonic fecal material. There is no demonstrated free abdominal air. The visualized liver, spleen and kidneys are grossly normal in size and morphology. Normal soft tissue structures. Bony structures are unremarkable aside from evidence of laminectomy at L4 and 5 RAD/Abdomen Single View (Portable) IMPRESSION: Retained stool No acute abdominal or pelvic process Bibasilar airspace opacifications in the lung bases Electronically Signed: Godfrey Stlalings MD at 14:42 EDT ,
[2022-10-19 06:39] LABS: Absolute Lymphocyte Count 1.29 X10^3/uL (0.83-4.51); Absolute Neutrophil Count 3.5 X10^3/uL (2.0-7.7); Basophil# 0.03 X10^3/uL; Basophil% 0.5 % (0-1); Eosinophil# 0.42 X10^3/uL; Eosinophils% 7.2 % (0-5); Hematocrit 31.2 % (40-54); Lymphocyte # 1.29 X10^3/ul (0.83-4.51); Lymphocyte % 22.2 % (19-41); Mean Corp Hgb Conc 32.1 g/dL (32-36); Mean Corpuscular Hgb 29.3 pg (27.0-32.0); Mean Corpuscular Volume 91.5 fL (80-94); Mean Platelet Vol. 9.9 fl (6.2-12.0); Monocyte# 0.54 X10^3/uL; Monocyte% 9.3 % (0-10); NRBC Flagged by Analyzer 0 % (0-5); Neutrophil # 3.49 X10^3/uL (2.7-7.7); Neutrophil % 60.1 % (47-70); Platelet Count 251 K/mm3 (150-450); RBC Distribution Width CV 12.5 % (11.6-14.6); RBC Distribution Width SD 41.6 fl (35.1-43.9); Red Blood Count 3.41 M/mm3 (4.6-6.2); White Blood Count 5.8 K/mm3 (4.4-11.0)
[2022-10-19 07:05] LABS: ALB/GLOB Ratio 0.8 RATIO (0.9-2.4); AST(SGOT) 26 U/L (15-37); Alanine Aminotransfer ALT/SGPT 33 U/L (16-61); Albumin, Serum 2.6 g/dL (3.2-5.0); Alkaline Phosphatase 58 U/L (45-117); Anion Gap 5 (5-15); BUN 24 mg/dL (7-18); BUN/Creat Ratio 36.1 RATIO (10-20); Calcium,Total 8.1 mg/dL (8.5-10.1); Chloride 113 mmol/L (98-107); Creatinine, Serum 0.66 mg/dL (0.70-1.30); EST Glomerular Filtration Rate 142 mL/min (>60); Est Glom Filt Rate - Afr Amer 172 mL/min (>60); Estimated Creatinine Clearance 132.01 ml/min; Globulin 3.4 g/dL (2.2-4.2); Glucose 87 mg/dL (74-106); Potassium 3.4 mmol/L (3.5-5.1); Sodium Level 142 mmol/L (136-145)
--- NOTE | 2022-10-19 07:06 | PN.HOSP_ITS ---
Reason for Visit Reason for Visit: Diagnoses Calculus of gallbladder with acute cholecystitis without obstruction (10/13/22) Right upper quadrant pain (10/13/22) Acquired absence of other specified parts of digestive tract (10/13/22) Subjective Subjective Still has NG in place and presently on suction, did get up and walk around and is feeling better though still not very good Objective Data Objective Data Vital Signs: Vital Signs Temp Pulse Resp BP Pulse Ox O2 Del Method O2 Flow Rate 98.9 F 67 18 131/74 H 92 Room Air 2 10/19/22 03:21 10/19/22 03:21 10/19/22 03:21 10/19/22 03:21 10/19/22 03:21 10/19/22 03:21 10/17/22 10:33 Oxygen Flow Rate (L/min) 2 Oxygen Delivery Method Room Air Weight: 77.649 kg Body Mass Index (BMI) 28.5 Intake & Output: Intake and Output for Last 24 Hours 10/17/22 10/18/22 10/19/22 23:59 23:59 23:59 Intake Total 1679.67 / 1679.67 3551.67 / 3591.67 220 / 220 Output Total 950 / 950 2300 / 2550 600 / 600 Balance 729.67 / 729.67 1251.67 / 1041.67 -380 / -380 Lab / Micro Data Result Diagrams: 10/19/22 05:50 10/19/22 05:50 Labs: Laboratory Results - last 24 hr 10/18/22 05:50: Sodium 139, Potassium 3.3 L, Chloride 109 H, Carbon Dioxide 26.0, Anion Gap 4 L, BUN 19 H, Creatinine 0.79, Estim Creat Clear Calc 110.28, Est GFR (MDRD) Af Amer 141, Est GFR (MDRD) Non-Af 117, BUN/Creatinine Ratio 24.2 H, Glucose 105, Calcium 8.5, Total Bilirubin 0.80, AST 32, ALT 38, Alkaline Phosphatase 62, Total Protein 6.4, Albumin 2.7 L, Globulin 3.7, Albumin/Globulin Ratio 0.7 L 10/19/22 05:50: WBC 5.8, RBC 3.41 L, Hgb 10.0 L, Hct 31.2 L, MCV 91.5, MCH 29.3, MCHC 32.1 D, RDW Std Deviation 41.6, RDW Coeff of Kim 12.5, Plt Count 251, MPV 9.9, Immature Gran % (Auto) 0.700, Neut % (Auto) 60.1, Lymph % (Auto) 22.2, [place] % (Auto) 9.3, Eos % (Auto) 7.2 H, Baso % (Auto) 0.5, Absolute Neuts (auto) 3.5, Absolute Lymphs (auto) 1.29, Nucleated RBC % 0 10/19/22 05:50: Sodium 142, Potassium 3.4 L, Chloride 113 H, Carbon Dioxide 24.0, Anion Gap 5, BUN 24 H, Creatinine 0.66 L, Estim Creat Clear Calc 132.01, Est GFR (MDRD) Af Amer 172, Est GFR (MDRD) Non-Af 142, BUN/Creatinine Ratio 36.1 H, Glucose 87, Calcium 8.1 L, Total Bilirubin 0.90, AST 26, ALT 33, Alkaline Phosphatase 58, Total Protein 6.0 L, Albumin 2.6 L, Globulin 3.4, Albumin/Globulin Ratio 0.8 L Physical Exam Narrative General: Alert, oriented, less distress HEENT: Atraumatic, normocephalic Eyes: Anicteric, normal conjunctiva, extraocular movements grossly intact Neck: Supple Respiratory: Clear to auscultation bilaterally, normal respiratory effort Cardiovascular: Regular rate and rhythm GI: Tender more so on right side without rebound, guarding, NG tube in place Extremities: No edema Musculoskeletal: Moving all extremities Neuro: No overt focal neurological deficits Skin: No rashes appreciated Psych: Cooperative Assessment & Plan Assessment/Plan (1) Abdominal pain, RUQ: PLAN: Plan #Postop ileus/constipation -CT scan 10/17 with dilated fluid-filled loops of small bowel in the left mid abdomen with no bowel wall thickening or ischemia -NG tube placed 10/17 due to nausea and pain and lack of BM or passing gas, patient had significant relief with NG tube placement -KUB after demonstrated NG with distal tip in the mid stomach with gas filled loops of large and small bowel which may represent ileus -Continue bowel regimen -Patient now passing gas -Of note imaging queried pneumonia versus atelectasis, speaking with patient over the past several days he reports taking very shallow breaths intentionally to avoid pain despite education and incentive spirometer provided. High suspicion that this is due to atelectasis and not pneumonia but will continue to monitor labs and vitals -10/19: Remains on fluids, KUB this AM. Laxatives DC'd by surgery at present. Did have small bowel movement and is passing gas and is up and around with less pain. Stressed CT findings with the atelectasis and using incentive spirometry and increasing mobilization and he verbalized his understanding #Acute cholecystitis with cholelithiasis-status post open cholecystectomy -Had right upper quadrant ultrasound 10/10 which demonstrated cholelithiasis but without increased wall thickness or bile duct dilation -Labs fairly benign in ED lipase negative but certainly has the right-sided abdominal pain -Surgery evaluated and concern for cholecystitis and plan for OR tomorrow with Intra-Op cholangiogram -Was started on fluids at 125 an hour as well as Cipro and Flagyl -Continue Protonix -Given his report of some possible inflammation in his appendix at the outlying facility and change in pain over the past [address] chest abdomen pelvis with contrast ordered. Patient has listed contrast allergy but he reports that he is premedicated with Benadryl he does not have any problems -10/14: CT chest abd pelvis without overt abnormality, it queried shunt abnormality. Shuntogram reports stable exam. For surgery today -10/15: Attempted laparoscopic cholecystectomy converted to open cholecystectomy due to adhesions. Had successful cholecystectomy. We will work on improving pain control and advised to use incentive spirometer. On Merrem, also received 1 dose of vancomycin -10/16: Has not had bowel movement, escalating bowel regimen and adjusting pain medication to help better treat pain -10/17: Continues to not have bowel movements but has been minimally ambulatory and taking frequent pain medication which is likely exacerbating this, soapsuds enema this morning without good results, added Dulcolax enema. Patient did not have rebound or guarding at time of exam but did appear somewhat uncomfortable and had hypoactive bowel sounds. Her blood cell count today within normal limits, lactic acid normal, KUB just showed stool in colon. Surgery ordered CT with oral contrast which may be a diagnostic and therapeutic. Awaiting results. Given suboptimal p.o. intake started on fluids. Additionally surgery added Toradol 30 IV every 8 scheduled to help with pain control and increased frequency with which she could get his pain medication -10/18: Presently on fluids, Merrem, pain control. 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 -Denies any current problems -Outpatient management date -10/14: Shuntogram stable exam -10/15: Old shunt noted during surgery and was removed with no manipulation of present shunt and surgical area kept away from present shunt -10/16: Spoke with surgery, continue meropenem until discharge #Anemia -Hemoglobin 10.0 today, was 11.6 yesterday but suspect somewhat delusional with fluids -No evidence of bleeding but will monitor closely as baseline somewhere between 13 and 16 #DVT ppx: SCDs Dominique Freed MD Time spent in the patient's overall evaluation,decision-making process, review of diagnostic data, adjustment of management, discussion with other providers, nursing nursing and ancillary staff involved in patient's care documentation, 30 minutes Charges/Coding Visit Charges Inpatient E&M: 77976 Subs Hosp L2
[2022-10-19 07:30] VITALS: O2SAT 92
--- NOTE | 2022-10-19 07:31 | PN.SURG_ITS ---
Subjective Subjective Nursing charted 2 L per nasal cannula yesterday. Patient states he did have some gas as well as a small bowel movement. Patient did get up and walk with therapy as well as nursing a couple times. Currently patient states he mostly only has incisional pain. KUB did look improved with less dilation of the small bowel and stool- Throughout the transverse colon Objective Data Objective Data Vital Signs: Vital Signs Temp Pulse Resp BP Pulse Ox O2 Del Method O2 Flow Rate 98.9 F 67 18 131/74 H 92 Room Air 2 10/19/22 03:21 10/19/22 03:21 10/19/22 03:21 10/19/22 03:21 10/19/22 03:21 10/19/22 03:21 10/17/22 10:33 Oxygen Flow Rate (L/min) 2 Oxygen Delivery Method Room Air Weight: 171 lb 3 oz Body Mass Index (BMI) 28.5 Intake & Output: Intake and Output for Last 24 Hours 10/17/22 10/18/22 10/19/22 23:59 23:59 23:59 Intake Total 1679.67 / 1679.67 3551.67 / 3591.67 220 / 220 Output Total 950 / 950 2300 / 2550 600 / 600 Balance 729.67 / 729.67 1251.67 / 1041.67 -380 / -380 Lab / Micro Data Result Diagrams: 10/19/22 05:50 10/19/22 05:50 Labs: Laboratory Results - last 24 hr 10/19/22 05:50: WBC 5.8, RBC 3.41 L, Hgb 10.0 L, Hct 31.2 L, MCV 91.5, MCH 29.3, MCHC 32.1 D, RDW Std Deviation 41.6, RDW Coeff of Kim 12.5, Plt Count 251, MPV 9.9, Immature Gran % (Auto) 0.700, Neut % (Auto) 60.1, Lymph % (Auto) 22.2, [place] % (Auto) 9.3, Eos % (Auto) 7.2 H, Baso % (Auto) 0.5, Absolute Neuts (auto) 3.5, Absolute Lymphs (auto) 1.29, Nucleated RBC % 0 10/19/22 05:50: Sodium 142, Potassium 3.4 L, Chloride 113 H, Carbon Dioxide 24.0, Anion Gap 5, BUN 24 H, Creatinine 0.66 L, Estim Creat Clear Calc 132.01, Est GFR (MDRD) Af Amer 172, Est GFR (MDRD) Non-Af 142, BUN/Creatinine Ratio 36.1 H, Glucose 87, Calcium 8.1 L, Total Bilirubin 0.90, AST 26, ALT 33, Alkaline Phosphatase 58, Total Protein 6.0 L, Albumin 2.6 L, Globulin 3.4, Albumin/Globulin Ratio 0.8 L Physical Exam Narrative NG in place Const oriented x3 and no apparent distress Resp normal respiratory effort GI soft to palpation GI Narrative: Tender near right upper quadrant incision dressing clean dry and intact, no peritoneal signs Assessment & Plan Assessment/Plan (1) Status post cholecystectomy: PLAN: Plan Continue NG currently until increased bowel function/decrease output. Encourage ambulation Hypokalemia?replace Sylvie Dee M.D. Pager: [phone] [facility] [address] [place] [address], [facility], [address] [place] [address] Office: [phone] Charges/Coding Visit Charges Inpatient E&M: 42518 Subs Hosp L2
[2022-10-19] MEDS: Venlafaxine HCl 25 MG Tablet 12.5 MG NG (08:36)
[2022-10-19 09:16] VITALS: BP 126/73; PULSE 67; RESP 16; TEMP 36.9; O2SAT 93
[2022-10-19] MEDS: Potassium Chloride 10mEq/100mL 10 MEQ/100 ML IV.SOLN. 100 MEQ IV BOLUS (09:46)
[2022-10-19] MEDS: 0.9% Normal Saline 1,000 ML 75 ML IV (10:06)
[2022-10-19 13:09] LABS: Bacteria 0 SEEN /hpf (None Seen); Mucous, Urine 0 SEEN /hpf (<or=2+); Red Blood Cells-Urine 0 SEEN /hpf (0-5); Squamous Epithelial Cells - UA 0 SEEN /hpf (0-5)
[2022-10-19 13:10] LABS: Color, Urine Yellow (Yellow); Glucose, Dipstick Normal (Normal); Leukocyte Esterase-Dipstick 100 /ul (Negative); Nitrite-Dipstick Negative (Negative); Occult Blood-Urine 25 /ul (Negative); Protein-Dipstick 30 mg/dl (Negative); Specific Gravity, Urine 1.015 (1.002-1.030); Urine Bilirubin Dipstick Negative (Negative); Urine Clarity Clear (Clear); Urine Urobilinogen 4 mg/dl (Normal); Urine pH 6.5 (5.0 - 8.0)
[2022-10-19 13:13] LABS: Ketone-Dipstick 150 mg/dl (Negative)
[2022-10-19 13:20] LABS: White Blood Cells 10-25 SEEN /hpf (0-5)
--- NOTE | 2022-10-19 13:23 | NURSING ---
DR MENA AWARE OF PT'S URINE KETONE LEVEL AT 150- PER TEXT PER THIS RN
--- NOTE | 2022-10-19 15:08 | PCM.HOSP.N ---
Hospitalist Note Had had very poor p.o. for over a week with no p.o. over the past several days, urine was dark so UA was obtained for further analysis not yet acidotic the patient is greater than 150 ketones in urine given not eating and that he still has an NG will start on D5 LR and recheck BMP, Phos, mag this evening, transition back to normal saline tomorrow. Hopefully he will be able to be transitioned to p.o. soon and if not we will need to have further discussion on nutrition.
[2022-10-19] MEDS: Potassium Chloride 10 MEQ in Dextrose 5%-Lactated Ringers 1,000 ML 50 MEQ IV (16:42)
[2022-10-19 16:45] VITALS: BP 128/83; PULSE 68; RESP 16; TEMP 36.8; O2SAT 95
[2022-10-19 17:29] LABS: Anion Gap 7 (5-15); BUN 25 mg/dL (7-18); BUN/Creat Ratio 37.1 RATIO (10-20); Calcium,Total 8.3 mg/dL (8.5-10.1); Chloride 116 mmol/L (98-107); Creatinine, Serum 0.67 mg/dL (0.70-1.30); EST Glomerular Filtration Rate 140 mL/min (>60); Est Glom Filt Rate - Afr Amer 169 mL/min (>60); Estimated Creatinine Clearance 130.04 ml/min; Glucose 81 mg/dL (74-106); Magnesium 2.2 mg/dL (1.6-2.6); Phosphorus 2.4 mg/dL (2.5-4.9); Potassium 3.7 mmol/L (3.5-5.1); Sodium Level 145 mmol/L (136-145)
[2022-10-19 18:45] LABS: Bedside Glucose 87 mg/dL (74-106)
[2022-10-19] MEDS: Venlafaxine HCl 25 MG Tablet NG (21:22)
[2022-10-19 22:00] VITALS: BP 130/84; PULSE 86; RESP 18; TEMP 37.2; O2SAT 94
[2022-10-20 00:21] LABS: Bedside Glucose 85 mg/dL (74-106)
[2022-10-20 04:00] VITALS: BP 127/79; PULSE 82; RESP 18; TEMP 37.6; O2SAT 93
[2022-10-20] MEDS: 0.9% Saline Lock 10 ML Syringe IV ×2 (05:32→07:59)
[2022-10-20] MEDS: Ketorolac 30 MG/ML Syringe IV ×3 (05:32→22:22)
[2022-10-20] MEDS: Enoxaparin 40 MG/0.4 ML Syringe SC (05:33)
[2022-10-20 05:55] LABS: Absolute Lymphocyte Count 1.05 X10^3/uL (0.83-4.51); Basophil# 0.03 X10^3/uL; Basophil% 0.6 % (0-1); Eosinophil# 0.41 X10^3/uL; Eosinophils% 8.4 % (0-5); Hematocrit 30.7 % (40-54); Hemoglobin 9.9 g/dL (13.0-16.5); Lymphocyte # 1.05 X10^3/ul (0.83-4.51); Lymphocyte % 21.6 % (19-41); Mean Corp Hgb Conc 32.2 g/dL (32-36); Mean Corpuscular Hgb 29.6 pg (27.0-32.0); Mean Corpuscular Volume 91.6 fL (80-94); Mean Platelet Vol. 9.1 fl (6.2-12.0); Monocyte% 8.2 % (0-10); NRBC Flagged by Analyzer 0 % (0-5); Neutrophil # 2.95 X10^3/uL (2.7-7.7); Neutrophil % 60.8 % (47-70); Platelet Count 254 K/mm3 (150-450); RBC Distribution Width CV 12.5 % (11.6-14.6); RBC Distribution Width SD 41.7 fl (35.1-43.9); Red Blood Count 3.35 M/mm3 (4.6-6.2); White Blood Count 4.9 K/mm3 (4.4-11.0)
[2022-10-20 06:28] LABS: ALB/GLOB Ratio 0.8 RATIO (0.9-2.4); AST(SGOT) 41 U/L (15-37); Alanine Aminotransfer ALT/SGPT 41 U/L (16-61); Albumin, Serum 2.7 g/dL (3.2-5.0); Alkaline Phosphatase 64 U/L (45-117); Anion Gap 10 (5-15); BUN 22 mg/dL (7-18); BUN/Creat Ratio 35.5 RATIO (10-20); Calcium,Total 8.3 mg/dL (8.5-10.1); Chloride 117 mmol/L (98-107); Creatinine, Serum 0.62 mg/dL (0.70-1.30); EST Glomerular Filtration Rate 154 mL/min (>60); Est Glom Filt Rate - Afr Amer 186 mL/min (>60); Estimated Creatinine Clearance 140.52 ml/min; Globulin 3.2 g/dL (2.2-4.2); Glucose 102 mg/dL (74-106); Magnesium 2.4 mg/dL (1.6-2.6); Potassium 3.4 mmol/L (3.5-5.1); Protein, Total 5.9 g/dL (6.4-8.2); Sodium Level 150 mmol/L (136-145)
[2022-10-20 06:32] LABS: Phosphorus 3.1 mg/dL (2.5-4.9)
--- NOTE | 2022-10-20 07:41 | RAD_ITS ---
EXAM: XR ABDOMEN, 1 VIEW CLINICAL INDICATION: sbo -- portable TECHNIQUE: Frontal supine view of the abdomen/pelvis. COMPARISON: XR Abdomen dated 10/19/2022 FINDINGS: LOWER THORAX: Bibasilar atelectasis. GASTROINTESTINAL TRACT: Dilated proximal small bowel loop within the left upper quadrant which may represent obstruction or ileus. ORGANS: No organomegaly. BONES/JOINTS: No acute abnormality. SOFT TISSUES: No pathological calcification. TUBES, LINES AND DEVICES: Residual catheter projecting over the right side of the abdomen. Enteric tube extends into the stomach. RAD/Abdomen Single View (Portable) IMPRESSION: Satisfactory endogastric tube placement. No other interval change. Electronically Signed: Keshav Jimenez MD at 8:43 EDT ,
[2022-10-20] MEDS: Morphine 2 MG/ML Syringe IV (07:56)
[2022-10-20] MEDS: Ondansetron 4 MG/2 ML Vial IV (07:59)
--- NOTE | 2022-10-20 08:09 | NURSING ---
Pt called out for pain medication. Pt thrashing around in pain. Pt states 8 out of 10 pain just started 20 min ago. KUB completed recently this morning. This RN Called Dr. hernández regarding sudden severe pain. Dr. Hernández stated it was not here taking care of pt now, just was for the weekend. States either DR. Mendoza or Dr. Morse is taking him.
[2022-10-20] MEDS: HYDROmorphone 1 MG/ML Syringe IV ×3 (08:41→21:32)
[2022-10-20 08:45] VITALS: O2SAT 93
[2022-10-20] MEDS: 0.45% Normal Saline 1,000 ML 75 ML IV (10:21)
[2022-10-20] MEDS: Venlafaxine HCl 25 MG Tablet 12.5 MG NG (10:35)
[2022-10-20 10:43] VITALS: BP 138/82; PULSE 72; RESP 18; TEMP 37.1; O2SAT 93
--- NOTE | 2022-10-20 12:00 | PCM.PN.SRG ---
Subjective Subjective Patient did have a bowel movement today. States his pain really is only at his incision sites. Last night they tried to clamp his NG tube and he had diffuse abdominal pain. Objective Data Objective Data Dressings are clean and dry his tenderness is really only at his dressing sites the rest of his abdomen is relatively soft there is no rebound guarding or peritoneal signs. Vital Signs: Vital Signs Temp Pulse Resp BP Pulse Ox O2 Del Method O2 Flow Rate 98.7 F 72 18 138/82 H 93 Room Air 1 10/20/22 10:43 10/20/22 10:43 10/20/22 10:43 10/20/22 10:43 10/20/22 10:43 10/20/22 10:43 10/20/22 08:45 Oxygen Flow Rate (L/min) 1 Oxygen Delivery Method Room Air Weight: 171 lb 3 oz Body Mass Index (BMI) 28.5 Intake & Output: Intake and Output for Last 24 Hours 10/18/22 10/19/22 10/20/22 23:59 23:59 23:59 Intake Total 3551.67 / 3591.67 2921.25 / 2951.25 1230 / 1230 Output Total 2300 / 2550 1300 / 1700 1270 / 1270 Balance 1251.67 / 1041.67 1621.25 / 1251.25 -40 / -40 Lab / Micro Data Result Diagrams: 10/20/22 05:45 10/20/22 05:45 Labs: Laboratory Results - last 24 hr 10/19/22 12:51: Urine Color Yellow, Urine Clarity Clear, Urine pH 6.5, Ur Specific [place] 1.015, Urine Protein 30 H, Urine Glucose (UA) Normal, Urine Ketones 150 A*, Urine Occult Blood 25 H, Urine Nitrite Negative, Urine Bilirubin Negative, Urine Urobilinogen 4 H, Ur Leukocyte Esterase 100 H, Urine RBC 0 SEEN, Urine WBC 10-25 SEEN, Ur Squamous Epith Cells 0 SEEN, Urine Bacteria 0 SEEN, Urine Mucus 0 SEEN 10/19/22 16:55: Sodium 145, Potassium 3.7, Chloride 116 H, Carbon Dioxide 22.0, Anion Gap 7, BUN 25 H, Creatinine 0.67 L, Estim Creat Clear Calc 130.04, Est GFR (MDRD) Af Amer 169, Est GFR (MDRD) Non-Af 140, BUN/Creatinine Ratio 37.1 H, Glucose 81, Calcium 8.3 L, Phosphorus 2.4 L, Magnesium 2.2 10/19/22 18:25: POC Glucose 87 10/19/22 23:56: POC Glucose 85 10/20/22 05:45: WBC 4.9, RBC 3.35 L, Hgb 9.9 L, Hct 30.7 L, MCV 91.6, MCH 29.6, MCHC 32.2, RDW Std Deviation 41.7, RDW Coeff of Kim 12.5, Plt Count 254, MPV 9.1, Immature Gran % (Auto) 0.400, Neut % (Auto) 60.8, Lymph % (Auto) 21.6, [place] % (Auto) 8.2, Eos % (Auto) 8.4 H, Baso % (Auto) 0.6, Absolute Neuts (auto) 3.0, Absolute Lymphs (auto) 1.05, Nucleated RBC % 0 10/20/22 05:45: Sodium 150 H, Potassium 3.4 L, Chloride 117 H, Carbon Dioxide 23.0, Anion Gap 10, BUN 22 H, Creatinine 0.62 L, Estim Creat Clear Calc 140.52, Est GFR (MDRD) Af Amer 186, Est GFR (MDRD) Non-Af 154, BUN/Creatinine Ratio 35.5 H, Glucose 102, Calcium 8.3 L, Magnesium 2.4, Total Bilirubin 1.00, AST 41 H, ALT 41, Alkaline Phosphatase 64, Total Protein 5.9 L, Albumin 2.7 L, Globulin 3.2, Albumin/Globulin Ratio 0.8 L 10/20/22 05:45: Phosphorus 3.1 Radiography Diagnostic Testing: Radiology Impression KUB X-Ray 10/19/22 05:55 IMPRESSION: Retained stool No acute abdominal or pelvic process Bibasilar airspace opacifications in the lung bases Electronically Signed: Godfrey Stallings MD at 14:42 EDT , KUB X-Ray 10/20/22 07:41 IMPRESSION: Satisfactory endogastric tube placement. No other interval change. Electronically Signed: Keshav Jimenez MD at 8:43 EDT , Assessment & Plan Assessment/Plan (1) Status post cholecystectomy: PLAN: I would allow him to have his Mountain Dew. Organ to try clamping his NG tube to see how well he does with this. My intentions are to remove this by tomorrow he either is going to do well enough to go home or I am going to transfer him to a tertiary referral center.
[2022-10-20] MEDS: Lactulose 20 GM/30 ML UDC 30 GM NG ×2 (12:34→21:29)
--- NOTE | 2022-10-20 13:49 | PN_ITS ---
Subjective Subjective Patient seen and examined. He still complained of some abdominal pain though he said he had improved since he was given pain meds. His NG tube is still having significant output. Sodium is up to 150 today and potassium is 3.4. General surgery is on board. Objective Data Objective Data Vital Signs: Vital Signs Temp Pulse Resp BP Pulse Ox O2 Del Method O2 Flow Rate 98.7 F 72 18 138/82 H 93 Room Air 1 10/20/22 10:43 10/20/22 10:43 10/20/22 10:43 10/20/22 10:43 10/20/22 10:43 10/20/22 10:43 10/20/22 08:45 Oxygen Flow Rate (L/min) 1 Oxygen Delivery Method Room Air Weight: 171 lb 3 oz Body Mass Index (BMI) 28.5 Intake & Output: Intake and Output for Last 24 Hours 10/18/22 10/19/22 10/20/22 23:59 23:59 23:59 Intake Total 3551.67 / 3591.67 2921.25 / 2951.25 1230 / 1230 Output Total 2300 / 2550 1300 / 1700 1270 / 1270 Balance 1251.67 / 1041.67 1621.25 / 1251.25 -40 / -40 Lab / Micro Data Result Diagrams: 10/20/22 05:45 10/20/22 05:45 Labs: Laboratory Results - last 24 hr 10/19/22 16:55: Sodium 145, Potassium 3.7, Chloride 116 H, Carbon Dioxide 22.0, Anion Gap 7, BUN 25 H, Creatinine 0.67 L, Estim Creat Clear Calc 130.04, Est GFR (MDRD) Af Amer 169, Est GFR (MDRD) Non-Af 140, BUN/Creatinine Ratio 37.1 H, Glucose 81, Calcium 8.3 L, Phosphorus 2.4 L, Magnesium 2.2 10/19/22 18:25: POC Glucose 87 10/19/22 23:56: POC Glucose 85 10/20/22 05:45: WBC 4.9, RBC 3.35 L, Hgb 9.9 L, Hct 30.7 L, MCV 91.6, MCH 29.6, MCHC 32.2, RDW Std Deviation 41.7, RDW Coeff of Kim 12.5, Plt Count 254, MPV 9.1, Immature Gran % (Auto) 0.400, Neut % (Auto) 60.8, Lymph % (Auto) 21.6, [place] % (Auto) 8.2, Eos % (Auto) 8.4 H, Baso % (Auto) 0.6, Absolute Neuts (auto) 3.0, Absolute Lymphs (auto) 1.05, Nucleated RBC % 0 10/20/22 05:45: Sodium 150 H, Potassium 3.4 L, Chloride 117 H, Carbon Dioxide 23.0, Anion Gap 10, BUN 22 H, Creatinine 0.62 L, Estim Creat Clear Calc 140.52, Est GFR (MDRD) Af Amer 186, Est GFR (MDRD) Non-Af 154, BUN/Creatinine Ratio 35.5 H, Glucose 102, Calcium 8.3 L, Magnesium 2.4, Total Bilirubin 1.00, AST 41 H, ALT 41, Alkaline Phosphatase 64, Total Protein 5.9 L, Albumin 2.7 L, Globulin 3.2, Albumin/Globulin Ratio 0.8 L 10/20/22 05:45: Phosphorus 3.1 Radiography Diagnostic Testing: Radiology Impression KUB X-Ray 10/19/22 05:55 IMPRESSION: Retained stool No acute abdominal or pelvic process Bibasilar airspace opacifications in the lung bases Electronically Signed: Godfrey Stallings MD at 14:42 EDT , KUB X-Ray 10/20/22 07:41 IMPRESSION: Satisfactory endogastric tube placement. No other interval change. Electronically Signed: Keshav Jimenez MD at 8:43 EDT , Physical Exam Const alert, oriented x3 and no apparent distress HEENT normocephalic, head/scalp atraumatic and moist oral mucous membranes Eyes PERRL Neck no lymphadenopathy and supple Lymph Lymphatic: no lymphadenopathy noted and no lymphedema noted Resp normal respiratory effort, normal air movement and clear to auscultation bilat erally Cardio regular rate, regular rhythm, S1 normal heart sound, S2 normal heart sound and no murmurs GI normal to inspection, nondistended, normoactive bowel sounds, soft to palpation, non-tender and non-distended GI Narrative: NG tube in situ, still draining bilious fluid Extremity normal capillary refill and no clubbing, cyanosis or edema Skin General Skin Exam: no breakdown Neuro CN's II-XII intact bilaterally and no focal motor deficits Motor Exam: strength 5/5 throughout Psych thought process normal and cooperative Appearance: appropriate Assessment & Plan Assessment/Plan (1) Status post cholecystectomy: PLAN: Plan #Gallbladder calculus * Status postcholecystectomy. * NG tube still remains in place with significant output. * There is concern about postop ileus versus constipation. * Is passing gas and has had bowel movements x2. * General surgery on board. * On IV fluids and meropenem as well as pain meds. 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 * Shunt is stable. * DVT prophylaxis; SCDs #
[2022-10-20 14:00] VITALS: BP 135/85; PULSE 62; RESP 18; TEMP 35.9; O2SAT 93
--- NOTE | 2022-10-20 14:07 | NURSING ---
AT noon today, Pt walked down to the joint surgery with walker and this RN and UNIVERSITY INTERN assistance. Pt then walked all the way around the unit and has been sitting in chair since.
[2022-10-20 14:41] VITALS: O2SAT 91
--- NOTE | 2022-10-20 16:49 | NURSING ---
Sitting in the chair. just recently went for a 2nd walk today down to the therapy room and physical therapy had pt walk up steps then back to room.
[2022-10-20 17:00] LABS: Bedside Glucose 86 mg/dL (74-106)
--- NOTE | 2022-10-20 17:52 | NURSING ---
This RN clamped NG tube twice today, once this early afternoon for 30 min and when hooked back up to suction, NG drained almost a whole canister immediately. Just clamped NG again for 25 min and only obtained 100cc once back to suction.
[2022-10-20 21:22] VITALS: BP 135/86; PULSE 67; RESP 16; TEMP 36.3; O2SAT 94
[2022-10-20] MEDS: Venlafaxine HCl 25 MG Tablet NG (21:29)
[2022-10-21] MEDS: 0.45% Normal Saline 1,000 ML 75 ML IV (00:14)
[2022-10-21 01:00] LABS: Bedside Glucose 74 mg/dL (74-106)
[2022-10-21 03:47] VITALS: BP 128/88; PULSE 94; RESP 16; TEMP 36.3; O2SAT 100
[2022-10-21 04:00] VITALS: BP 128/88; PULSE 94; RESP 16; TEMP 36.3; O2SAT 94
[2022-10-21] MEDS: Morphine 2 MG/ML Syringe IV ×2 (04:13→17:10)
--- NOTE | 2022-10-21 05:17 | PCM.PN.SRG ---
Subjective Subjective Still having incisional pain. Passed small amounts of flatus. Objective Data Objective Data No rebound guarding or peritoneal signs identified. Bilious fluid coming out of NG tube Vital Signs: Vital Signs Temp Pulse Resp BP Pulse Ox O2 Del Method O2 Flow Rate 97.4 F L 94 16 128/88 H 94 Room Air 1 10/21/22 04:00 10/21/22 04:00 10/21/22 04:00 10/21/22 04:00 10/21/22 04:00 10/21/22 04:00 10/20/22 08:45 Oxygen Flow Rate (L/min) 1 Oxygen Delivery Method Room Air Weight: 171 lb 3 oz Body Mass Index (BMI) 28.5 Intake & Output: Intake and Output for Last 24 Hours 10/19/22 10/20/22 10/21/22 23:59 23:59 23:59 Intake Total 2921.25 / 2951.25 3740 / 5740 2150 / 2150 Output Total 1300 / 1700 3020 / 4290 1270 / 1270 Balance 1621.25 / 1251.25 720 / 1450 880 / 880 Lab / Micro Data Result Diagrams: 10/20/22 05:45 10/20/22 05:45 Labs: Laboratory Results - last 24 hr 10/20/22 05:45: WBC 4.9, RBC 3.35 L, Hgb 9.9 L, Hct 30.7 L, MCV 91.6, MCH 29.6, MCHC 32.2, RDW Std Deviation 41.7, RDW Coeff of Kim 12.5, Plt Count 254, MPV 9.1, Immature Gran % (Auto) 0.400, Neut % (Auto) 60.8, Lymph % (Auto) 21.6, [place] % (Auto) 8.2, Eos % (Auto) 8.4 H, Baso % (Auto) 0.6, Absolute Neuts (auto) 3.0, Absolute Lymphs (auto) 1.05, Nucleated RBC % 0 10/20/22 05:45: Sodium 150 H, Potassium 3.4 L, Chloride 117 H, Carbon Dioxide 23.0, Anion Gap 10, BUN 22 H, Creatinine 0.62 L, Estim Creat Clear Calc 140.52, Est GFR (MDRD) Af Amer 186, Est GFR (MDRD) Non-Af 154, BUN/Creatinine Ratio 35.5 H, Glucose 102, Calcium 8.3 L, Magnesium 2.4, Total Bilirubin 1.00, AST 41 H, ALT 41, Alkaline Phosphatase 64, Total Protein 5.9 L, Albumin 2.7 L, Globulin 3.2, Albumin/Globulin Ratio 0.8 L 10/20/22 05:45: Phosphorus 3.1 10/20/22 16:29: POC Glucose 86 10/21/22 00:31: POC Glucose 74 Radiography Diagnostic Testing: Radiology Impression KUB X-Ray 10/20/22 07:41 IMPRESSION: Satisfactory endogastric tube placement. No other interval change. Electronically Signed: Keshav Jimenez MD at 8:43 EDT , Assessment & Plan Assessment/Plan (1) Status post cholecystectomy: PLAN: Can remove the NG tube today. We are only going to try clear liquids today. Try to switch him over to oral pain medications today.
[2022-10-21] MEDS: Lactulose 20 GM/30 ML UDC 30 GM PO ×3 (05:30→22:01)
[2022-10-21] MEDS: Enoxaparin 40 MG/0.4 ML Syringe SC (05:30)
[2022-10-21] MEDS: Ketorolac 30 MG/ML Syringe IV ×3 (05:30→22:01)
[2022-10-21] MEDS: Ondansetron 4 MG/2 ML Vial IV ×3 (05:57→21:03)
[2022-10-21 06:20] LABS: Bedside Glucose 78 mg/dL (74-106)
[2022-10-21 06:41] LABS: Absolute Lymphocyte Count 1.24 X10^3/uL (0.83-4.51); Absolute Neutrophil Count 3.9 X10^3/uL (2.0-7.7); Basophil# 0.03 X10^3/uL; Basophil% 0.5 % (0-1); Eosinophil# 0.53 X10^3/uL; Eosinophils% 8.6 % (0-5); Hematocrit 33.7 % (40-54); Hemoglobin 10.9 g/dL (13.0-16.5); Lymphocyte # 1.24 X10^3/ul (0.83-4.51); Lymphocyte % 20.1 % (19-41); Mean Corp Hgb Conc 32.3 g/dL (32-36); Mean Corpuscular Hgb 29.6 pg (27.0-32.0); Mean Corpuscular Volume 91.6 fL (80-94); Monocyte# 0.49 X10^3/uL; Monocyte% 7.9 % (0-10); NRBC Flagged by Analyzer 0 % (0-5); Neutrophil # 3.87 X10^3/uL (2.7-7.7); Neutrophil % 62.7 % (47-70); Platelet Count 281 K/mm3 (150-450); RBC Distribution Width CV 12.5 % (11.6-14.6); RBC Distribution Width SD 41.6 fl (35.1-43.9); Red Blood Count 3.68 M/mm3 (4.6-6.2); White Blood Count 6.2 K/mm3 (4.4-11.0)
[2022-10-21] MEDS: oxyCODONE 5 MG Tablet 10 MG PO (06:54)
[2022-10-21 07:09] LABS: ALB/GLOB Ratio 0.8 RATIO (0.9-2.4); AST(SGOT) 96 U/L (15-37); Alanine Aminotransfer ALT/SGPT 101 U/L (16-61); Albumin, Serum 2.9 g/dL (3.2-5.0); Alkaline Phosphatase 87 U/L (45-117); Anion Gap 10 (5-15); BUN 23 mg/dL (7-18); BUN/Creat Ratio 33.6 RATIO (10-20); Calcium,Total 8.8 mg/dL (8.5-10.1); Chloride 113 mmol/L (98-107); Creatinine, Serum 0.68 mg/dL (0.70-1.30); EST Glomerular Filtration Rate 137 mL/min (>60); Est Glom Filt Rate - Afr Amer 166 mL/min (>60); Estimated Creatinine Clearance 128.13 ml/min; Globulin 3.6 g/dL (2.2-4.2); Glucose 78 mg/dL (74-106); Potassium 3.4 mmol/L (3.5-5.1); Protein, Total 6.5 g/dL (6.4-8.2); Sodium Level 146 mmol/L (136-145)
[2022-10-21] MEDS: Venlafaxine HCl 25 MG Tablet 12.5 MG PO (08:44)
[2022-10-21] MEDS: Potassium Chloride Oral Tablet 20 MEQ 40 MEQ PO (08:45)
[2022-10-21 08:53] VITALS: BP 134/89; PULSE 85; RESP 17; TEMP 36.8; O2SAT 92; O2SAT 93
[2022-10-21] MEDS: HYDROmorphone 1 MG/ML Syringe IV ×2 (11:00→20:49)
--- NOTE | 2022-10-21 12:22 | RAD_ITS ---
STUDY: X-RAY - ABDOMEN/PELVIS REASON FOR EXAM: Male, 36 years old. NGT placement TECHNIQUE: Single AP view of the abdomen / pelvis. COMPARISON: Comparison is made with prior study dated October 20, 2022. FINDINGS: Increased markings at the lung bases suggestive of atelectasis more prominent at the right lung base. The tip of the nasogastric tube is in the body of the stomach. RAD/Abdomen Single View (Portable) IMPRESSION: Findings suggest some bibasilar atelectasis. The tip of the nasogastric tube is in the body of the stomach. Electronically Signed: Artur Rosenberg MD at 12:47 EDT ,
--- NOTE | 2022-10-21 12:47 | CHAPLAIN ---
Type of Pastoral Visit _x__ Initial Visit ___ Follow-up Visit ___ On-call Visit ___ General Patient Visit ___ Spiritual Assessment ___ Family Conference ___ Bereavement ___ Rapid Response ___ Code Blue ___ Other (describe below) Pastoral Care Referral From ___ Patient ___ Family ___ Nurse ___ Physician ___ Call Center Trainer ___ Ironer Hand _x__ Other (describe below) Sacrament/Intervention _x__ Active listening ___ Anointing ___ Shinto ___ Bereavement ___ Communion _x__ Janine exploration ___ ___ Life review _x__ Prayer ___ Reconciliation ___ Sacrament of Sick _x__ Supportive presence ___ Wedding ___ Other (describe below) Pastoral Comments HRO recommended support to be offered to this patient; pt has been in hospital for 8 days following surgery and is expected to be transferred to larger hospital; pt welcomes the visit and speaks of frustrations and disappointments; pt identifies self as a Pentecostalism and would appreciate spiritual care visits as long as he is in this hospital; pt has other physical and emotional concerns as well; pt seeks prayer and presence along with time to talk about his pain and health concerns
--- NOTE | 2022-10-21 13:03 | CASEMGMT ---
Pt to be trf'd. TC to [employer] insurance, spoke with Camila, pt can be trf'd to any facility that accepts self pay. Pt does not have in or out of network facilities. She states it is billed as self pay. Updated .
--- NOTE | 2022-10-21 14:05 | CT_ITS ---
We are attempting to reach an attending provider to discuss findings. An addendum with communication details will be sent when the communication is complete. INDICATION: ileus EXAMINATION: CT ABDOMEN AND PELVIS WITHOUT CONTRAST - CT Abdomen And Pelvis W/O Contrast Injection TECHNIQUE: Helically acquired images were obtained of the abdomen and pelvis without oral or IV contrast. A radiation dose optimization technique was used for this scan. IV Contrast dosage and agent: None. Oral contrast: None. COMPARISON: 10/17/2022 FINDINGS: LOWER CHEST: Decreasing bibasilar consolidations. No cardiomegaly or pericardial effusion. NG tube passes into the stomach. LIVER: Homogeneous. No focal mass. GALLBLADDER AND BILIARY TREE: Not identified. No intra- or extrahepatic biliary ductal dilation. PANCREAS: No focal cystic or solid mass. SPLEEN: Normal size without focal cystic or solid mass. ADRENAL GLANDS: No nodules. KIDNEYS AND URETERS: No hydronephrosis. PERITONEUM: No free air. Decreased but trace ascites in the right upper quadrant. BOWEL: No evidence of acute appendicitis. Persistent distention of multiple small bowel loops left upper quadrant, 4 cm in diameter with swirling of the mesentery and mild mesenteric edema. Overall appearance similar to prior study. No pneumatosis or evidence of perforation. Large bowel nondistended. LYMPH NODES: No enlarged mesenteric or retroperitoneal lymph nodes. VESSELS: Aorta is non-dilated. URINARY BLADDER: Unremarkable. REPRODUCTIVE ORGANS: No pelvic masses. ABDOMINAL WALL: Stable subcutaneous catheter terminates in the midabdomen ventrally. BONES: No acute or aggressive abnormality. CT/Abdomen/Pelvis without Cont IMPRESSION: Stable abnormal examination with appearance of focal small bowel obstruction with volvulus of the mesentery and mesenteric edema suspicious for closed loop obstruction. No pneumatosis or perforation. Recommend surgical consultation. Electronically Signed: Yasir Mayers MD at 16:10 EDT ,
--- NOTE | 2022-10-21 14:18 | PCM.PROGNOTE ---
Subjective Subjective Patient seen and examined. Was feeling better this morning and the NG tube had been pulled out. He has started to tolerate clear liquids. However he started having nausea and vomiting later in the day so NG tube had to be reinserted. Review of systems otherwise negative. He is still passing gas and having scant bowel movements. He has remained hemodynamically stable. Objective Data Objective Data Vital Signs: Vital Signs Temp Pulse Resp BP Pulse Ox O2 Del Method O2 Flow Rate 98.2 F 85 17 134/89 H 92 Room Air 1 10/21/22 08:53 10/21/22 08:53 10/21/22 08:53 10/21/22 08:53 10/21/22 08:53 10/21/22 08:54 10/20/22 08:45 Oxygen Flow Rate (L/min) 1 Oxygen Delivery Method Room Air Weight: 171 lb 3 oz Body Mass Index (BMI) 28.5 Intake & Output: Intake and Output for Last 24 Hours 10/19/22 10/20/22 10/21/22 23:59 23:59 23:59 Intake Total 2921.25 / 2951.25 3740 / 5740 3130 / 3130 Output Total 1300 / 1700 3020 / 4290 1994 Balance 1621.25 / 1251.25 720 / 1450 1135 / 1135 Lab / Micro Data Result Diagrams: 10/21/22 06:05 10/21/22 06:05 Labs: Laboratory Results - last 24 hr 10/20/22 16:29: POC Glucose 86 10/21/22 00:31: POC Glucose 74 10/21/22 05:46: POC Glucose 78 10/21/22 06:05: WBC 6.2, RBC 3.68 L, Hgb 10.9 L, Hct 33.7 L, MCV 91.6, MCH 29.6, MCHC 32.3, RDW Std Deviation 41.6, RDW Coeff of Kim 12.5, Plt Count 281, MPV 10.0, Immature Gran % (Auto) 0.200, Neut % (Auto) 62.7, Lymph % (Auto) 20.1, [place] % (Auto) 7.9, Eos % (Auto) 8.6 H, Baso % (Auto) 0.5, Absolute Neuts (auto) 3.9, Absolute Lymphs (auto) 1.24, Nucleated RBC % 0 05/02/23 06:05: Sodium 146 H, Potassium 3.4 L, Chloride 113 H, Carbon Dioxide 23.0, Anion Gap 10, BUN 23 H, Creatinine 0.68 L, Estim Creat Clear Calc 128.13, Est GFR (MDRD) Af Amer 166, Est GFR (MDRD) Non-Af 137, BUN/Creatinine Ratio 33.6 H, Glucose 78, Calcium 8.8, Total Bilirubin 1.30 H, AST 96 H, ALT 101 H, Alkaline Phosphatase 87, Total Protein 6.5, Albumin 2.9 L, Globulin 3.6, Albumin/Globulin Ratio 0.8 L Radiography Diagnostic Testing: Radiology Impression KUB X-Ray 10/21/22 12:22 IMPRESSION: Findings suggest some bibasilar atelectasis. The tip of the nasogastric tube is in the body of the stomach. Electronically Signed: Artur Rosenberg MD at 12:47 EDT , Physical Exam Const alert, oriented x3 and no apparent distress HEENT normocephalic, head/scalp atraumatic and moist oral mucous membranes Eyes PERRL Neck no lymphadenopathy and supple Lymph Lymphatic: no lymphadenopathy noted and no lymphedema noted Resp normal respiratory effort, normal air movement and clear to auscultation bilaterally Cardio regular rate, regular rhythm, S1 normal heart sound, S2 normal heart sound and no murmurs GI normal to inspection, nondistended, normoactive bowel sounds, soft to palpation, non-tender and non-distended GI Narrative: NG tube in situ, still draining bilious fluid. Intact dressing over surgical site Extremity normal capillary refill and no clubbing, cyanosis or edema Skin General Skin Exam: no breakdown Neuro CN's II-XII intact bilaterally, no focal motor deficits and no sensory deficits noted Motor Exam: strength 5/5 throughout Psych thought process normal and cooperative Appearance: appropriate Assessment & Plan Assessment/Plan (1) Status post cholecystectomy: PLAN: Plan #Gallbladder calculus Status post cholecystectomy. NG tube was removed today, but had to be reinserted as patient started having profuse vomiting again. general surgery recommends transfer to [facility]. Dr. Mendoza spoke to Dr Angela Olivera of [facility] general surgery was willing to accept patient in consult with medicine. Transfer team contacted and internal medicine team asked for CT of the abdomen and pelvis to evaluate for ileus before accepting. Is passing gas and has had bowel movements x2. General surgery on board. On IV fluids and meropenem as well as pain meds. 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 Shunt is stable. DVT prophylaxis: SCDs # Disposition: awaiting transfer to [facility] Total time spent on evaluation and management of patient, reviewing chart and specialist notes, discussing plan with patient, discussion with nursing and ancillary staff as well as documentation: 55 mins Charges/Coding Visit Charges Inpatient E&M: 90984 [facility] Hosp L3
[2022-10-21 14:45] VITALS: BP 130/87; PULSE 81; RESP 17; TEMP 36.7; O2SAT 91
--- NOTE | 2022-10-21 16:43 | NURSING ---
talked with Dr. Aguirre regarding CT results and call from [facility].
[2022-10-21] MEDS: proCHLORPERazine 10 MG/2 ML Vial 5 MG IV (17:10)
[2022-10-21 20:52] VITALS: BP 135/85; PULSE 90; RESP 18; TEMP 36.4; O2SAT 93
[2022-10-21] MEDS: Venlafaxine XR 37.5 MG Capsule PO (22:02)
[2022-10-22] MEDS: HYDROmorphone 1 MG/ML Syringe IV ×4 (02:05→23:27)
[2022-10-22 02:11] VITALS: BP 142/98; PULSE 85; RESP 18; TEMP 36.6; O2SAT 94
[2022-10-22 02:45] LABS: Bedside Glucose 80 mg/dL (74-106)
[2022-10-22] MEDS: 0.9% Normal Saline 1,000 ML 100 ML IV (05:49)
[2022-10-22] MEDS: Enoxaparin 40 MG/0.4 ML Syringe SC (05:49)
[2022-10-22] MEDS: Ketorolac 30 MG/ML Syringe IV ×2 (05:50→14:05)
[2022-10-22] MEDS: Ondansetron 4 MG/2 ML Vial IV (05:52)
[2022-10-22] MEDS: Lactulose 20 GM/30 ML UDC 30 GM NG ×3 (06:27→23:03)
[2022-10-22 06:31] LABS: Bedside Glucose 79 mg/dL (74-106)
[2022-10-22 06:34] LABS: Absolute Lymphocyte Count 1.35 X10^3/uL (0.83-4.51); Absolute Neutrophil Count 4.6 X10^3/uL (2.0-7.7); Basophil# 0.02 X10^3/uL; Basophil% 0.3 % (0-1); Eosinophils% 7.2 % (0-5); Hemoglobin 11.5 g/dL (13.0-16.5); Lymphocyte # 1.35 X10^3/ul (0.83-4.51); Lymphocyte % 19.5 % (19-41); Mean Corp Hgb Conc 32.9 g/dL (32-36); Mean Corpuscular Hgb 30.1 pg (27.0-32.0); Mean Corpuscular Volume 91.6 fL (80-94); Mean Platelet Vol. 9.7 fl (6.2-12.0); Monocyte# 0.49 X10^3/uL; Monocyte% 7.1 % (0-10); NRBC Flagged by Analyzer 0 % (0-5); Neutrophil # 4.57 X10^3/uL (2.7-7.7); Neutrophil % 65.8 % (47-70); Platelet Count 361 K/mm3 (150-450); RBC Distribution Width CV 12.6 % (11.6-14.6); RBC Distribution Width SD 41.5 fl (35.1-43.9); Red Blood Count 3.82 M/mm3 (4.6-6.2); White Blood Count 6.9 K/mm3 (4.4-11.0)
[2022-10-22 07:14] LABS: ALB/GLOB Ratio 0.8 RATIO (0.9-2.4); AST(SGOT) 71 U/L (15-37); Alanine Aminotransfer ALT/SGPT 112 U/L (16-61); Albumin, Serum 2.8 g/dL (3.2-5.0); Alkaline Phosphatase 93 U/L (45-117); Anion Gap 10 (5-15); BUN 24 mg/dL (7-18); BUN/Creat Ratio 34.7 RATIO (10-20); Calcium,Total 8.7 mg/dL (8.5-10.1); Chloride 117 mmol/L (98-107); Creatinine, Serum 0.69 mg/dL (0.70-1.30); EST Glomerular Filtration Rate 136 mL/min (>60); Est Glom Filt Rate - Afr Amer 164 mL/min (>60); Estimated Creatinine Clearance 126.27 ml/min; Globulin 3.7 g/dL (2.2-4.2); Glucose 76 mg/dL (74-106); Potassium 3.5 mmol/L (3.5-5.1); Protein, Total 6.5 g/dL (6.4-8.2); Sodium Level 150 mmol/L (136-145)
[2022-10-22 07:49] VITALS: BP 129/88; PULSE 89; RESP 18; TEMP 36.7; O2SAT 95
[2022-10-22] MEDS: 0.45% Normal Saline 1,000 ML 100 ML IV ×2 (08:15→17:47)
[2022-10-22 09:14] VITALS: PULSE 80
[2022-10-22 12:00] VITALS: BP 127/88; PULSE 80; RESP 18; TEMP 36.7; O2SAT 94
--- NOTE | 2022-10-22 13:47 | CHAPLAIN ---
Type of Pastoral Visit ___ Initial Visit _x__ Follow-up Visit ___ On-call Visit ___ General Patient Visit ___ Spiritual Assessment ___ Family Conference ___ Bereavement ___ Rapid Response ___ Code Blue ___ Other (describe below) Pastoral Care Referral From _x__ Patient ___ Family ___ Nurse ___ Physician ___ Cork Tipper ___ Union Laborer ___ Other (describe below) Sacrament/Intervention _x__ Active listening ___ Anointing ___ Rastafarian ___ Bereavement ___ Communion _x__ Janine exploration ___ _x__ Life review _x__ Prayer ___ Reconciliation ___ Sacrament of Sick _x__ Supportive presence ___ Wedding ___ Other (describe below) Pastoral Comments follow up visit requested by this patient; pt acknowledges frustrations due to needing to go to [facility] and is just waiting without further treatments being done here; pt has had many surgeries and states I just want to have whatever 'they' think I need so I can get well; patient is open about her personal life and needs; pt identifies as a Zoroastrianism believer and relies on his trust in God for his situations; pt concerns include his five year old son who doesn't understand why his daddy has to be in the hospital; pt welcomes time to talk, presence, prayer, and offer of ongoing support
--- NOTE | 2022-10-22 13:56 | PN.SURG_ITS ---
Subjective Subjective Patient states this is the best that he is felt. He is complaining of some incisional pain. States he has had just a small amount of flatus. Objective Data Objective Data Incision is clean and dry. Abdomen is soft but slightly distended Vital Signs: Vital Signs Temp Pulse Resp BP Pulse Ox O2 Del Method O2 Flow Rate 98.1 F 80 18 129/88 H 95 Room Air 1 10/22/22 07:49 10/22/22 09:14 10/22/22 07:49 10/22/22 07:49 10/22/22 07:49 10/22/22 07:49 10/20/22 08:45 Oxygen Flow Rate (L/min) 1 Oxygen Delivery Method Room Air Weight: 171 lb 3 oz Body Mass Index (BMI) 28.5 Intake & Output: Intake and Output for Last 24 Hours 10/20/22 10/21/22 10/22/22 23:59 23:59 23:59 Intake Total 3740 / 5740 4660.0 / 4660.0 570 / 570 Output Total 3020 / 4290 4095 / 4095 1200 / 1200 Balance 720 / 1450 565.0 / 565.0 -630 / -630 Lab / Micro Data Result Diagrams: 10/22/22 06:10 10/22/22 06:10 Labs: Laboratory Results - last 24 hr 10/22/22 02:20: POC Glucose 80 10/22/22 06:07: POC Glucose 79 10/22/22 06:10: WBC 6.9, RBC 3.82 L, Hgb 11.5 L, Hct 35.0 L, MCV 91.6, MCH 30.1, MCHC 32.9, RDW Std Deviation 41.5, RDW Coeff of Kim 12.6, Plt Count 361, MPV 9.7, Immature Gran % (Auto) 0.100, Neut % (Auto) 65.8, Lymph % (Auto) 19.5, [place] % (Auto) 7.1, Eos % (Auto) 7.2 H, Baso % (Auto) 0.3, Absolute Neuts (auto) 4.6, Absolute Lymphs (auto) 1.35, Nucleated RBC % 0 10/22/22 06:10: Sodium 150 H, Potassium 3.5, Chloride 117 H, Carbon Dioxide 23.0, Anion Gap 10, BUN 24 H, Creatinine 0.69 L, Estim Creat Clear Calc 126.27, Est GFR (MDRD) Af Amer 164, Est GFR (MDRD) Non-Af 136, BUN/Creatinine Ratio 34.7 H, Glucose 76, Calcium 8.7, Total Bilirubin 1.00, AST 71 H, ALT 112 H, Alkaline Phosphatase 93, Total Protein 6.5, Albumin 2.8 L, Globulin 3.7, Albumin/Globulin Ratio 0.8 L Radiography Diagnostic Testing: Radiology Impression Abdomen/Pelvis CT 10/21/22 14:05 IMPRESSION: Stable abnormal examination with appearance of focal small bowel obstruction with volvulus of the mesentery and mesenteric edema suspicious for closed loop obstruction. No pneumatosis or perforation. Recommend surgical consultation. Electronically Signed: Yasir Mayers MD at 16:10 EDT , ADDENDUM: 10/21/22 1630 IMPRESSION: Stable abnormal examination with appearance of focal small bowel obstruction with volvulus of the mesentery and mesenteric edema suspicious for closed loop obstruction. No pneumatosis or perforation. Recommend surgical consultation. N.B. : The above Results were Read Back by Yasir Mayers MD to Sandrine Baldwin RN, and understanding confirmed on 10/21/2022 16:22:22 (ET). Electronically Signed: Yasir Mayers MD at 16:10 EDT , Assessment & Plan Assessment/Plan (1) Status post cholecystectomy: PLAN: Await transfer to [facility]. No acute surgical abdomen at this time
--- NOTE | 2022-10-22 14:00 | PCM.PROGNOTE ---
Subjective Subjective Patient seen and examined. He had no active complaints. The abdominal pain had improved slightly. He still has the NG tube and with copious output. He has no other complaints and review systems is otherwise negative. He has been accepted at [facility] and is awaiting transfer pending the availability of a bed. His sodium is up to 150 today. Objective Data Objective Data Vital Signs: Vital Signs Temp Pulse Resp BP Pulse Ox O2 Del Method O2 Flow Rate 98.1 F 80 18 129/88 H 95 Room Air 1 10/22/22 07:49 10/22/22 09:14 10/22/22 07:49 10/22/22 07:49 10/22/22 07:49 10/22/22 07:49 10/20/22 08:45 Oxygen Flow Rate (L/min) 1 Oxygen Delivery Method Room Air Weight: 171 lb 3 oz Body Mass Index (BMI) 28.5 Intake & Output: Intake and Output for Last 24 Hours 10/20/22 10/21/22 10/22/22 23:59 23:59 23:59 Intake Total 3740 / 5740 4660.0 / 4660.0 570 / 570 Output Total 3020 / 4290 4095 / 4095 1200 / 1200 Balance 720 / 1450 565.0 / 565.0 -630 / -630 Lab / Micro Data Result Diagrams: 10/22/22 06:10 10/22/22 06:10 Labs: Laboratory Results - last 24 hr 10/22/22 02:20: POC Glucose 80 10/22/22 06:07: POC Glucose 79 10/22/22 06:10: WBC 6.9, RBC 3.82 L, Hgb 11.5 L, Hct 35.0 L, MCV 91.6, MCH 30.1, MCHC 32.9, RDW Std Deviation 41.5, RDW Coeff of Kim 12.6, Plt Count 361, MPV 9.7, Immature Gran % (Auto) 0.100, Neut % (Auto) 65.8, Lymph % (Auto) 19.5, [place] % (Auto) 7.1, Eos % (Auto) 7.2 H, Baso % (Auto) 0.3, Absolute Neuts (auto) 4.6, Absolute Lymphs (auto) 1.35, Nucleated RBC % 0 10/22/22 06:10: Sodium 150 H, Potassium 3.5, Chloride 117 H, Carbon Dioxide 23.0, Anion Gap 10, BUN 24 H, Creatinine 0.69 L, Estim Creat Clear Calc 126.27, Est GFR (MDRD) Af Amer 164, Est GFR (MDRD) Non-Af 136, BUN/Creatinine Ratio 34.7 H, Glucose 76, Calcium 8.7, Total Bilirubin 1.00, AST 71 H, ALT 112 H, Alkaline Phosphatase 93, Total Protein 6.5, Albumin 2.8 L, Globulin 3.7, Albumin/Globulin Ratio 0.8 L Radiography Diagnostic Testing: Radiology Impression Abdomen/Pelvis CT 10/21/22 14:05 IMPRESSION: Stable abnormal examination with appearance of focal small bowel obstruction with volvulus of the mesentery and mesenteric edema suspicious for closed loop obstruction. No pneumatosis or perforation. Recommend surgical consultation. Electronically Signed: Yasir Mayers MD at 16:10 EDT , ADDENDUM: 10/21/22 1630 IMPRESSION: Stable abnormal examination with appearance of focal small bowel obstruction with volvulus of the mesentery and mesenteric edema suspicious for closed loop obstruction. No pneumatosis or perforation. Recommend surgical consultation. N.B. : The above Results were Read Back by Yasir Mayers MD to Sandrine Baldwin RN, and understanding confirmed on 10/21/2022 16:22:22 (ET). Electronically Signed: Yasir Mayers MD at 16:10 EDT , Physical Exam Const alert, oriented x3 and no apparent distress HEENT normocephalic, head/scalp atraumatic and moist oral mucous membranes Eyes PERRL Neck no lymphadenopathy and supple Lymph Lymphatic: no lymphadenopathy noted and no lymphedema noted Resp normal respiratory effort, normal air movement and clear to auscultation bilaterally Cardio regular rate, regular rhythm, S1 normal heart sound, S2 normal heart sound and no murmurs GI normal to inspection, nondistended, normoactive bowel sounds, soft to palpation, non-tender and non-distended GI Narrative: NG tube in situ, still draining bilious fluid. Intact dressing over surgical site Extremity normal capillary refill and no clubbing, cyanosis or edema Skin General Skin Exam: no breakdown Neuro CN's II-XII intact bilaterally, no focal motor deficits and no sensory deficits noted Motor Exam: strength 5/5 throughout Psych thought process normal and cooperative Appearance: appropriate Assessment & Plan Assessment/Plan (1) Status post cholecystectomy: PLAN: Plan #Gallbladder calculus Status post cholecystectomy. NG tube was removed yesterday, but had to be reinserted as patient started having profuse vomiting again. general surgery recommends transfer to [facility]. Dr. Mendoza spoke to Dr Angela Olivera of [facility] general surgery was willing to accept patient in consult with medicine. Patient accepted by surgeon at [facility], pending transfer Is passing gas and has had bowel movements x2. General surgery on board. On IV fluids and meropenem as well as pain meds. CT abdomen and pelvis done yesterday showed stable abdominal examination with appearance of focal small bowel obstruction with volvulus of the mesentery and mesenteric edema suspicious for closed-loop obstruction with no pneumatosis or perforation. General surgery on board. #Hyponatremia: Sodium is 150 and chloride is 117. Likely due to IV fluid hydration. We will switch fluids from NS to 0.45NS and trend sodium. 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 Shunt is stable. DVT prophylaxis: SCDs # Disposition: awaiting transfer to [facility] Main [place] Total time spent on evaluation and management of patient, reviewing chart and specialist notes, discussing plan with patient, discussion with nursing and ancillary staff as well as documentation: 45 mins Charges/Coding Visit Charges Inpatient E&M: 78636 Subs Hosp L2
[2022-10-22 14:39] VITALS: PULSE 80
[2022-10-22 20:02] VITALS: BP 126/84; PULSE 92; RESP 16; TEMP 37.2; O2SAT 93
[2022-10-22 21:05] LABS: Bedside Glucose 76 mg/dL (74-106)
[2022-10-22] MEDS: Venlafaxine HCl 25 MG Tablet NG (23:03)
[2022-10-23 02:14] VITALS: BP 137/81; PULSE 73; RESP 16; TEMP 36.6; O2SAT 92
[2022-10-23] MEDS: 0.45% Normal Saline 1,000 ML 100 ML IV ×3 (02:26→22:07)
[2022-10-23] MEDS: Enoxaparin 40 MG/0.4 ML Syringe SC (06:07)
[2022-10-23] MEDS: Lactulose 20 GM/30 ML UDC 30 GM NG ×2 (06:07→13:54)
[2022-10-23 07:26] LABS: ALB/GLOB Ratio 0.8 RATIO (0.9-2.4); AST(SGOT) 54 U/L (15-37); Alanine Aminotransfer ALT/SGPT 101 U/L (16-61); Albumin, Serum 2.7 g/dL (3.2-5.0); Alkaline Phosphatase 92 U/L (45-117); Anion Gap 13 (5-15); BUN 19 mg/dL (7-18); BUN/Creat Ratio 28.4 RATIO (10-20); Calcium,Total 8.3 mg/dL (8.5-10.1); Chloride 116 mmol/L (98-107); Creatinine, Serum 0.67 mg/dL (0.70-1.30); EST Glomerular Filtration Rate 141 mL/min (>60); Est Glom Filt Rate - Afr Amer 170 mL/min (>60); Estimated Creatinine Clearance 130.04 ml/min; Globulin 3.4 g/dL (2.2-4.2); Glucose 76 mg/dL (74-106); Potassium 3.2 mmol/L (3.5-5.1); Protein, Total 6.1 g/dL (6.4-8.2); Sodium Level 149 mmol/L (136-145)
[2022-10-23 07:39] LABS: Absolute Neutrophil Count 4.2 X10^3/uL (2.0-7.7); Basophil# 0.03 X10^3/uL; Basophil% 0.4 % (0-1); Eosinophil# 0.56 X10^3/uL; Eosinophils% 8.3 % (0-5); Hematocrit 35.1 % (40-54); Hemoglobin 11.4 g/dL (13.0-16.5); Lymphocyte % 20.7 % (19-41); Mean Corp Hgb Conc 32.5 g/dL (32-36); Mean Corpuscular Volume 92.4 fL (80-94); Monocyte# 0.54 X10^3/uL; NRBC Flagged by Analyzer 0 % (0-5); Neutrophil # 4.21 X10^3/uL (2.7-7.7); Neutrophil % 62.2 % (47-70); Platelet Count 403 K/mm3 (150-450); RBC Distribution Width CV 12.7 % (11.6-14.6); RBC Distribution Width SD 42.1 fl (35.1-43.9); White Blood Count 6.8 K/mm3 (4.4-11.0)
[2022-10-23 08:05] VITALS: O2SAT 93
[2022-10-23 08:06] LABS: Bedside Glucose 72 mg/dL (74-106)
--- NOTE | 2022-10-23 09:01 | NURSING ---
potassium k-riders still not on unit for pt administration
[2022-10-23] MEDS: Potassium Chloride 10mEq/100mL 10 MEQ/100 ML IV.SOLN. 100 MEQ IV BOLUS ×4 (09:07→12:01)
[2022-10-23] MEDS: Venlafaxine HCl 25 MG Tablet 12.5 MG NG (09:10)
[2022-10-23 10:00] VITALS: BP 122/90; PULSE 63; PULSE 80; RESP 18; TEMP 36.6; O2SAT 98
--- NOTE | 2022-10-23 12:13 | PN_ITS ---
Subjective Subjective Patient seen and examined today. He states he is feeling much better. His abdominal pain has improved significantly. He states he had a good bowel movement and is passing gas. He is worried if he could try drinking fluids orally well as the NG tube remains in situ. He has otherwise remained hemodynamically stable. He is awaiting transfer to [facility]. Objective Data Objective Data Vital Signs: Vital Signs Temp Pulse Resp BP Pulse Ox O2 Del Method O2 Flow Rate 97.9 F 80 16 137/81 H 93 Room Air 1 10/23/22 02:14 10/23/22 10:00 10/23/22 02:14 10/23/22 02:14 10/23/22 08:05 10/23/22 08:05 10/20/22 08:45 Oxygen Flow Rate (L/min) 1 Oxygen Delivery Method Room Air Weight: 171 lb 3 oz Body Mass Index (BMI) 28.5 Intake & Output: Intake and Output for Last 24 Hours 10/21/22 10/22/22 10/23/22 23:59 23:59 23:59 Intake Total 4660.0 / 4660.0 4723.66 / 5393.66 5660.67 / 5660.67 Output Total 4095 / 4095 2800 / 4525 5725 / 5725 Balance 565.0 / 565.0 1923.66 / 868.66 -64.33 / -64.33 Lab / Micro Data Result Diagrams: 10/23/22 06:35 10/23/22 06:35 Labs: Laboratory Results - last 24 hr 10/22/22 20:11: POC Glucose 76 10/23/22 06:18: POC Glucose 72 L 10/23/22 06:35: WBC 6.8, RBC 3.80 L, Hgb 11.4 L, Hct 35.1 L, MCV 92.4, MCH 30.0, MCHC 32.5, RDW Std Deviation 42.1, RDW Coeff of Kim 12.7, Plt Count 403, MPV 10.0, Immature Gran % (Auto) 0.400, Neut % (Auto) 62.2, Lymph % (Auto) 20.7, [place] % (Auto) 8.0, Eos % (Auto) 8.3 H, Baso % (Auto) 0.4, Absolute Neuts (auto) 4.2, Absolute Lymphs (auto) 1.40, Nucleated RBC % 0 10/23/22 06:35: Sodium 149 H, Potassium 3.2 L, Chloride 116 H, Carbon Dioxide 20.0 L, Anion Gap 13, BUN 19 H, Creatinine 0.67 L, Estim Creat Clear Calc 130.04, Est GFR (MDRD) Af Amer 170, Est GFR (MDRD) Non-Af 141, BUN/Creatinine Ratio 28.4 H, Glucose 76, Calcium 8.3 L, Total Bilirubin 1.00, AST 54 H, ALT 101 H, Alkaline Phosphatase 92, Total Protein 6.1 L, Albumin 2.7 L, Globulin 3.4, Albumin/Globulin Ratio 0.8 L Physical Exam Const alert, oriented x3 and no apparent distress Constitutional Narrative: Sitting up in a chair HEENT normocephalic, head/scalp atraumatic and moist oral mucous membranes Eyes PERRL Neck no lymphadenopathy and supple Lymph Lymphatic: no lymphadenopathy noted and no lymphedema noted Resp normal respiratory effort, normal air movement and clear to auscultation bilaterally Cardio regular rate, regular rhythm, S1 normal heart sound, S2 normal heart sound and no murmurs GI GI Narrative: NG tube in situ, still draining bilious fluid. Intact dressing over surgical site, very minimal abdominal tenderness. Extremity normal capillary refill and no clubbing, cyanosis or edema Skin General Skin Exam: no breakdown Neuro CN's II-XII intact bilaterally, no focal motor deficits and no sensory deficits noted Motor Exam: strength 5/5 throughout Psych thought process normal and cooperative Appearance: appropriate Assessment & Plan Assessment/Plan (1) Status post cholecystectomy: PLAN: Plan #Gallbladder calculus * Status post cholecystectomy. * NG tube was remove, but had to be reinserted as patient started having profuse vomiting again. * general surgery recommends transfer to [facility]. Dr. Mendoza spoke to Dr Angela Olivera of [facility] general surgery was willing to accept patient in consult with medicine. * General surgery on board. * On IV fluids and meropenem as well as pain meds. * CT abdomen and pelvis done showed stable abdominal examination with appearance of focal small bowel obstruction with volvulus of the mesentery and mesenteric edema suspicious for closed-loop obstruction with no pneumatosis or perforation. General surgery on board. * awaiting transfer to [facility]. * Feels much better today. * #Hyponatremia: * Sodium is down to 149 today * Likely due to IV fluid hydration. * continue on D5W. #Hypokalemia: Potassium is 3.3. Replace and trend. 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 * Shunt is stable. * DVT prophylaxis: SCDs Disposition: awaiting transfer to [facility] Main [place] Total time spent on evaluation and management of patient, reviewing chart and specialist notes, discussing plan with patient, discussion with nursing and ancillary staff as well as documentation: 43 mins Charges/Coding Visit Charges Inpatient E&M: 58866 Subs Hosp L2
--- NOTE | 2022-10-23 15:11 | PN.SURG_ITS ---
Subjective Subjective Patient states that he had a large bowel movement today. Abdomen feels significantly better today. Objective Data Objective Data Abdomen is much softer today no rebound guarding or peritoneal signs. Incisions are clean and dry. Vital Signs: Vital Signs Temp Pulse Resp BP Pulse Ox O2 Del Method O2 Flow Rate 97.9 F 80 16 137/81 H 93 Room Air 1 10/23/22 02:14 10/23/22 10:00 10/23/22 02:14 10/23/22 02:14 10/23/22 08:05 10/23/22 08:05 10/20/22 08:45 Oxygen Flow Rate (L/min) 1 Oxygen Delivery Method Room Air Weight: 171 lb 3 oz Body Mass Index (BMI) 28.5 Intake & Output: Intake and Output for Last 24 Hours 10/21/22 10/22/22 10/23/22 23:59 23:59 23:59 Intake Total 4660.0 / 4660.0 4723.66 / 5393.66 5985.67 / 5985.67 Output Total 4095 / 4095 2800 / 4525 5725 / 5725 Balance 565.0 / 565.0 1923.66 / 868.66 260.67 / 260.67 Lab / Micro Data Result Diagrams: 10/23/22 06:35 10/23/22 06:35 Labs: Laboratory Results - last 24 hr 10/22/22 20:11: POC Glucose 76 10/23/22 06:18: POC Glucose 72 L 10/23/22 06:35: WBC 6.8, RBC 3.80 L, Hgb 11.4 L, Hct 35.1 L, MCV 92.4, MCH 30.0, MCHC 32.5, RDW Std Deviation 42.1, RDW Coeff of Kim 12.7, Plt Count 403, MPV 10.0, Immature Gran % (Auto) 0.400, Neut % (Auto) 62.2, Lymph % (Auto) 20.7, [place] % (Auto) 8.0, Eos % (Auto) 8.3 H, Baso % (Auto) 0.4, Absolute Neuts (auto) 4.2, Absolute Lymphs (auto) 1.40, Nucleated RBC % 0 10/23/22 06:35: Sodium 149 H, Potassium 3.2 L, Chloride 116 H, Carbon Dioxide 20.0 L, Anion Gap 13, BUN 19 H, Creatinine 0.67 L, Estim Creat Clear Calc 130.04, Est GFR (MDRD) Af Amer 170, Est GFR (MDRD) Non-Af 141, BUN/Creatinine Ratio 28.4 H, Glucose 76, Calcium 8.3 L, Total Bilirubin 1.00, AST 54 H, ALT 101 H, Alkaline Phosphatase 92, Total Protein 6.1 L, Albumin 2.7 L, Globulin 3.4, Albumin/Globulin Ratio 0.8 L Assessment & Plan Assessment/Plan (1) Status post cholecystectomy: PLAN: Going to clamp the NG tube. Allow him to have liquids. Check of residual in 4 to 6 hours. Hopefully will be able to remove NG tube.
--- NOTE | 2022-10-23 15:53 | CHAPLAIN ---
Type of Pastoral Visit ___ Initial Visit _x__ Follow-up Visit ___ On-call Visit ___ General Patient Visit ___ Spiritual Assessment ___ Family Conference ___ Bereavement ___ Rapid Response ___ Code Blue ___ Other (describe below) Pastoral Care Referral From _x__ Patient ___ Family ___ Nurse ___ Physician ___ Underground Mine Machinery Mechanic ___ Lab Support Technician ___ Other (describe below) Sacrament/Intervention _x__ Active listening ___ Anointing ___ Bahai ___ Bereavement ___ Communion ___ Janine exploration ___ ___ Life review _x__ Prayer ___ Reconciliation ___ Sacrament of Sick _x__ Supportive presence ___ Wedding ___ Other (describe below) Pastoral Comments
[2022-10-23 16:00] VITALS: BP 127/87; PULSE 66; RESP 18; TEMP 37.1; O2SAT 98
[2022-10-23] MEDS: proCHLORPERazine 10 MG/2 ML Vial 5 MG IV (21:51)
[2022-10-23 22:25] VITALS: BP 130/86; PULSE 67; RESP 16; TEMP 36.6; O2SAT 97
--- NOTE | 2022-10-24 04:36 | RAD_ITS ---
EXAM: XR ABDOMEN, 2 VIEWS CLINICAL INDICATION: bowel obstr TECHNIQUE: Frontal view of the abdomen/pelvis with upright view of the abdomen. COMPARISON: Abdominal radiograph and CT of 10/21/2022. FINDINGS: LOWER THORAX: Discoid atelectasis noted at the left lung base and in the right perihilar region. INTRAPERITONEAL SPACE: No pneumoperitoneum is noted. GASTROINTESTINAL TRACT: The distended loop of small bowel in the left upper abdominal quadrant has mildly decreased in caliber, now measuring 3.9 cm in transverse diameter as compared with 4.3 cm on the prior exam. Air-fluid levels are scattered within additional small bowel loops, which are normal in caliber. Scattered gas and fecal material noted within the colon. ORGANS: Unremarkable as visualized. No organomegaly. No abnormal calcifications. BONES/JOINTS: Surgical clips are projected over the pelvis, with a broad midline defect within the L4 and L5 posterior elements. No acute osseous abnormality. TUBES, LINES AND DEVICES: NG tube remains in place extending into the gastric fundus. Catheter material again projected over the right mid to upper abdomen. RAD/Abd Inc Decub and/or Erect IMPRESSION: NG tube remains in place extending into the stomach. Mild decrease in degree of small bowel distention in the left upper quadrant as compared to the prior study of 10/21/2022. Electronically Signed: Que Ureña MD at 6:29 EDT ,
--- NOTE | 2022-10-24 04:38 | PCM.PN.SRG ---
Subjective Subjective Thought the patient was going to be able to make it last night however he had a 900 cc emesis. He is not having any abdominal pain. He still passed slight flatus. Objective Data Objective Data His abdomen is remarkably soft. Incision is clean without signs of infection. Vital Signs: Vital Signs Temp Pulse Resp BP Pulse Ox O2 Del Method O2 Flow Rate 97.9 F 67 16 130/86 H 97 Room Air 1 10/23/22 22:25 10/23/22 22:25 10/23/22 22:25 10/23/22 22:25 10/23/22 22:25 10/23/22 22:25 10/20/22 08:45 Oxygen Flow Rate (L/min) 1 Oxygen Delivery Method Room Air Weight: 171 lb 3 oz Body Mass Index (BMI) 28.5 Intake & Output: Intake and Output for Last 24 Hours 10/22/22 10/23/22 10/24/22 23:59 23:59 23:59 Intake Total 4723.66 / 5393.66 8045.67 / 8545.67 620 / 620 Output Total 2800 / 4525 6025 / 6700 675 / 675 Balance 1923.66 / 868.66 2020.67 / 1845.67 -55 / -55 Lab / Micro Data Result Diagrams: 10/23/22 06:35 10/23/22 06:35 Labs: Laboratory Results - last 24 hr 10/23/22 06:18: POC Glucose 72 L 10/23/22 06:35: WBC 6.8, RBC 3.80 L, Hgb 11.4 L, Hct 35.1 L, MCV 92.4, MCH 30.0, MCHC 32.5, RDW Std Deviation 42.1, RDW Coeff of Kim 12.7, Plt Count 403, MPV 10.0, Immature Gran % (Auto) 0.400, Neut % (Auto) 62.2, Lymph % (Auto) 20.7, [place] % (Auto) 8.0, Eos % (Auto) 8.3 H, Baso % (Auto) 0.4, Absolute Neuts (auto) 4.2, Absolute Lymphs (auto) 1.40, Nucleated RBC % 0 10/23/22 06:35: Sodium 149 H, Potassium 3.2 L, Chloride 116 H, Carbon Dioxide 20.0 L, Anion Gap 13, BUN 19 H, Creatinine 0.67 L, Estim Creat Clear Calc 130.04, Est GFR (MDRD) Af Amer 170, Est GFR (MDRD) Non-Af 141, BUN/Creatinine Ratio 28.4 H, Glucose 76, Calcium 8.3 L, Total Bilirubin 1.00, AST 54 H, ALT 101 H, Alkaline Phosphatase 92, Total Protein 6.1 L, Albumin 2.7 L, Globulin 3.4, Albumin/Globulin Ratio 0.8 L Assessment & Plan Assessment/Plan (1) Status post cholecystectomy: PLAN: We did send him down to get a flatplate and upright. Go to place a PICC line in him. We will have medicine started TPN on him. He is going to have to be transferred to have probable exploratory laparotomy and lysis of adhesions. We will discuss him with on-call surgeon this weekend which is Dr. Ray
[2022-10-24 04:41] VITALS: BP 139/97; PULSE 72; RESP 18; TEMP 36.5; O2SAT 96
[2022-10-24] MEDS: HYDROmorphone 1 MG/ML Syringe IV ×2 (05:12→13:53)
[2022-10-24] MEDS: Enoxaparin 40 MG/0.4 ML Syringe SC (05:18)
[2022-10-24] MEDS: Lactulose 20 GM/30 ML UDC 30 GM NG ×3 (05:36→20:39)
[2022-10-24 06:56] LABS: Absolute Lymphocyte Count 1.32 X10^3/uL (0.83-4.51); Basophil# 0.04 X10^3/uL; Basophil% 0.5 % (0-1); Eosinophil# 0.62 X10^3/uL; Eosinophils% 7.2 % (0-5); Hematocrit 35.5 % (40-54); Hemoglobin 11.7 g/dL (13.0-16.5); Lymphocyte # 1.32 X10^3/ul (0.83-4.51); Lymphocyte % 15.3 % (19-41); Mean Corpuscular Hgb 29.8 pg (27.0-32.0); Mean Corpuscular Volume 90.3 fL (80-94); Mean Platelet Vol. 9.6 fl (6.2-12.0); Monocyte# 0.65 X10^3/uL; Monocyte% 7.5 % (0-10); NRBC Flagged by Analyzer 0 % (0-5); Neutrophil # 5.96 X10^3/uL (2.7-7.7); Platelet Count 387 K/mm3 (150-450); RBC Distribution Width CV 12.6 % (11.6-14.6); RBC Distribution Width SD 40.7 fl (35.1-43.9); Red Blood Count 3.93 M/mm3 (4.6-6.2); White Blood Count 8.6 K/mm3 (4.4-11.0)
[2022-10-24] MEDS: 0.45% Normal Saline 1,000 ML 100 ML IV ×2 (07:00→23:46)
[2022-10-24 07:28] LABS: ALB/GLOB Ratio 0.8 RATIO (0.9-2.4); AST(SGOT) 55 U/L (15-37); Alanine Aminotransfer ALT/SGPT 101 U/L (16-61); Albumin, Serum 2.8 g/dL (3.2-5.0); Alkaline Phosphatase 93 U/L (45-117); Anion Gap 13 (5-15); BUN 14 mg/dL (7-18); BUN/Creat Ratio 23.2 RATIO (10-20); Calcium,Total 8.4 mg/dL (8.5-10.1); Chloride 114 mmol/L (98-107); EST Glomerular Filtration Rate 159 mL/min (>60); Est Glom Filt Rate - Afr Amer 192 mL/min (>60); Estimated Creatinine Clearance 145.21 ml/min; Globulin 3.4 g/dL (2.2-4.2); Glucose 95 mg/dL (74-106); Potassium 3.2 mmol/L (3.5-5.1); Protein, Total 6.2 g/dL (6.4-8.2); Sodium Level 145 mmol/L (136-145)
[2022-10-24 08:17] VITALS: BP 128/88; PULSE 72; RESP 16; TEMP 36.8; O2SAT 94
[2022-10-24] MEDS: Venlafaxine HCl 25 MG Tablet 12.5 MG NG (08:46)
[2022-10-24] MEDS: Potassium Chloride 10mEq/100mL 10 MEQ/100 ML IV.SOLN. 100 MEQ IV BOLUS ×4 (09:11→11:49)
[2022-10-24 13:05] LABS: Bedside Glucose 84 mg/dL (74-106)
--- NOTE | 2022-10-24 13:13 | PCM.PROGNOTE ---
Subjective Subjective Patient seen and examined. She had no active complaints. He is feeling quite frustrated as he says because the NG tube was removed from suction yesterday. He was fine for a few hours but subsequently started having profuse nausea and vomiting. NG tube has been put back up to suction again. He denies any abdominal pain. He is passing gas. He has been hemodynamically stable. Review of systems otherwise negative. He is awaiting transfer to [facility]. Objective Data Objective Data Vital Signs: Vital Signs Temp Pulse Resp BP Pulse Ox O2 Del Method O2 Flow Rate 98.3 F 72 16 128/88 H 94 Room Air 1 10/24/22 08:17 10/24/22 08:17 10/24/22 08:17 10/24/22 08:17 10/24/22 08:17 10/24/22 10:00 10/20/22 08:45 Oxygen Flow Rate (L/min) 1 Oxygen Delivery Method Room Air Weight: 171 lb 3 oz Body Mass Index (BMI) 28.5 Intake & Output: Intake and Output for Last 24 Hours 10/22/22 10/23/22 10/24/22 23:59 23:59 23:59 Intake Total 4723.66 / 5393.66 8045.67 / 8545.67 2201.66 / 2201.66 Output Total 2800 / 4525 6025 / 6700 1525 / 1525 Balance 1923.66 / 868.66 2020.67 / 1845.67 676.66 / 676.66 Lab / Micro Data Result Diagrams: 10/24/22 06:30 10/24/22 06:30 Labs: Laboratory Results - last 24 hr 10/24/22 06:30: WBC 8.6, RBC 3.93 L, Hgb 11.7 L, Hct 35.5 L, MCV 90.3, MCH 29.8, MCHC 33.0, RDW Std Deviation 40.7, RDW Coeff of Kim 12.6, Plt Count 387, MPV 9.6, Immature Gran % (Auto) 0.500, Neut % (Auto) 69.0, Lymph % (Auto) 15.3 L, [place] % (Auto) 7.5, Eos % (Auto) 7.2 H, Baso % (Auto) 0.5, Absolute Neuts (auto) 6.0, Absolute Lymphs (auto) 1.32, Nucleated RBC % 0 10/24/22 06:30: Sodium 145, Potassium 3.2 L, Chloride 114 H, Carbon Dioxide 18.0 L, Anion Gap 13, BUN 14, Creatinine 0.60 L, Estim Creat Clear Calc 145.21, Est GFR (MDRD) Af Amer 192, Est GFR (MDRD) Non-Af 159, BUN/Creatinine Ratio 23.2 H, Glucose 95, Calcium 8.4 L, Total Bilirubin 1.00, AST 55 H, ALT 101 H, Alkaline Phosphatase 93, Total Protein 6.2 L, Albumin 2.8 L, Globulin 3.4, Albumin/Globulin Ratio 0.8 L 10/24/22 12:40: POC Glucose 84 Radiography Diagnostic Testing: Radiology Impression Abdomen X-Ray 10/24/22 04:36 IMPRESSION: NG tube remains in place extending into the stomach. Mild decrease in degree of small bowel distention in the left upper quadrant as compared to the prior study of 10/21/2022. Electronically Signed: Que Ureña MD at 6:29 EDT , Physical Exam Const alert, oriented x3 and no apparent distress General Appearance: cooperative HEENT normocephalic and head/scalp atraumatic Mouth: dry mucous membranes Eyes PERRL Neck no lymphadenopathy and supple Lymph Lymphatic: no lymphadenopathy noted and no lymphedema noted Resp normal respiratory effort, normal air movement and clear to auscultation bilaterally Cardio regular rate, regular rhythm, S1 normal heart sound, S2 normal heart sound and no murmurs GI normal to inspection, nondistended, normoactive bowel sounds, soft to palpation, non-tender and non-distended GI Narrative: NG tube in situ, still draining bilious fluid. Intact dressing over surgical site, very minimal abdominal tenderness. Extremity normal capillary refill and no clubbing, cyanosis or edema Skin General Skin Exam: no breakdown Neuro CN's II-XII intact bilaterally, no focal motor deficits and no sensory deficits noted Motor Exam: strength 5/5 throughout Psych thought process normal and cooperative Appearance: appropriate Assessment & Plan Assessment/Plan (1) Status post cholecystectomy: PLAN: Plan #Gallbladder calculus Status post cholecystectomy. NG tube was taken off suction yesterday, but had to be placed back on suction as patient started having profuse vomiting again. general surgery recommends transfer to [facility]. Dr. Mendoza spoke to Dr Angela Olivera of [facility] general surgery was willing to accept patient in consult with medicine. General surgery on board. On IV fluids and meropenem as well as pain meds. CT abdomen and pelvis done showed stable abdominal examination with appearance of focal small bowel obstruction with volvulus of the mesentery and mesenteric edema suspicious for closed-loop obstruction with no pneumatosis or perforation. General surgery on board. awaiting transfer to [facility] to be started on TPN today. #Hyponatremia: Sodium is down to 145 today Likely due to IV fluid hydration. continue on D5W. #Hypokalemia: Potassium is 3.2. Replace with IV potassium and trend. 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 Shunt is stable. DVT prophylaxis: SCDs Disposition: awaiting transfer to [facility] Main [place] Total time spent on evaluation and management of patient, reviewing chart and specialist notes, discussing plan with patient, discussion with nursing and ancillary staff as well as documentation: 45 mins Charges/Coding Visit Charges Inpatient E&M: 45723 Subs Hosp L2
[2022-10-24 16:00] VITALS: BP 124/80; PULSE 75; RESP 18; TEMP 36.6; O2SAT 97
[2022-10-24] MEDS: Ondansetron 4 MG/2 ML Vial IV (16:18)
[2022-10-24] MEDS: TPN - Clinimix E 8%-14% Soln 2,000 ML with Multivitamins 10 ML, Trace Elements 1 ML, Fo... 63 ML IV (16:40)
[2022-10-24 18:35] LABS: Bedside Glucose 122 mg/dL (74-106)
[2022-10-24] MEDS: 0.9% Saline Lock 10 ML Syringe IV (20:35)
[2022-10-24] MEDS: Venlafaxine HCl 25 MG Tablet NG (20:39)
[2022-10-24 21:02] VITALS: BP 131/96; PULSE 60; RESP 18; TEMP 36.6; O2SAT 98
[2022-10-24] MEDS: MELATONIN 3 MG TABLET NG (23:45)
[2022-10-24] MEDS: oxyCODONE 5 MG Tablet 10 MG NG (23:45)
[2022-10-24 23:53] VITALS: BP 150/105; PULSE 75; RESP 18; TEMP 36.8; O2SAT 95
[2022-10-25 01:06] LABS: Bedside Glucose 119 mg/dL (74-106)
[2022-10-25 04:28] VITALS: BP 113/81; PULSE 72; RESP 18; TEMP 37.1; O2SAT 97
--- NOTE | 2022-10-25 07:17 | DS.PCM_ITS ---
Providers Date of Admission: 10/13/22 Date of Discharge: 10/25/22 Primary Care Physician: No Primary Care Phys Consultations 10/13/22 19:32 Consult: General Surgery Routine Consulting Provider: Porfirio Mendoza Reason for Consult: abdominal pain EMERGENT Consult: No MD Notified: Yes Date Notified: 10/13/22 Time Notified: 19:33 Method of Notification: ED Physician Initiated Reason For Visit: ABDOMINAL PAIN Diagnosis Discharge Diagnosis (1) Status post cholecystectomy: Status: Acute Code(s): Z90.49 - Acquired absence of other specified parts of digestive tract Plan #Gallbladder calculus * Status post cholecystectomy. * NG tube was taken off suction yesterday, but had to be placed back on suction as patient started having profuse vomiting again. * general surgery recommends transfer to [facility]. Dr. Mendoza spoke to Dr Angela Olivera of [facility] general surgery was willing to accept patient in consult with medicine. * General surgery on board. * On IV fluids and meropenem as well as pain meds. * CT abdomen and pelvis done showed stable abdominal examination with appearance of focal small bowel obstruction with volvulus of the mesentery and mesenteric edema suspicious for closed-loop obstruction with no pneumatosis or perforation. General surgery on board. * awaiting transfer to [facility]. * to be started on TPN today. * #Hyponatremia: * Sodium is down to 145 today * Likely due to IV fluid hydration. * continue on D5W. #Hypokalemia: Potassium is 3.2. Replace with IV potassium and trend. #History of spina bifida and DERRICK [employer]AT [employer]EVERMAN shunt * Both lower extremities in a brace. * Shunt is stable. * DVT prophylaxis: SCDs Disposition: awaiting transfer to [facility] Total time spent on evaluation and management of patient, reviewing chart and specialist notes, discussing plan with patient, discussion with nursing and ancillary staff as well as documentation: 45 mins Medications at Discharge Home Medications venlafaxine 75 mg capsule,extended release 24 hr 37.5 mg PO QHS mood 12/12/19 oxycodone-acetaminophen 5 mg-325 mg tablet (Percocet) 1 tab PO Q4H PRN pain 5 days #20 tabs 10/15/22 Hospital Course Operations - (attempted laparoscopic cholecystectomy converted to open cholecystectomy) Procedures None Summary of Care Provided Minutes Spent on Discharge: 45 Hospital Course: Patient is a 36-year-old male with a past medical history as outlined which includes spina bifida s/p [employer]ICK [employer] LEVERMAN shunt was admitted through the ED on 10/13/2022 with a complaint of abdominal pain which has been worsening. Abdominal pain had been going on for about a week and gradually worsening. He had been seen at an outside hospital twice prior to this admission and he said he had not found anything apart from slight inflammation of his appendix but they did not feel he needed any intervention. He subsequently came to our facility on 10/10/2022 and had a right upper quadrant ultrasound which showed cholelithiasis but no cholecystitis. He was started on PPI due to history of gastritis and referred for outpatient surgical evaluation of cholelithiasis. He however came back to the [facility] on 10/13/2022 with worsening abdominal pain in the right upper quadrant and pain now radiating to his back with associated nausea. He had been having regular bowel movements. His lipase was within normal limits. He was placed on pain medication and IV Zofran. He was admitted and managed for abdominal pain thought to be due to symptomatic cholelithiasis and concern for cholecystitis. He was started on IV ciprofloxacin and metronidazole. General surgery was consulted and he was hydrated with IV fluids. He had CT of the abdomen and pelvis done with contrast which showed no acute pathology. He had attempted laparoscopic cholecystectomy which was converted to open cholecystectomy. Post cholecystectomy, hospital course was complicated by ileus and consistent nausea and vomiting. He had to have an NG tube inserted for drainage. CT abdomen and pelvis done showed stable abdominal exam with appearance of focal small bowel obstruction with volvulus of the mesentery and mesenteric edema suspicious for closed loop obstruction with no pneumatosis or perforation. Patient kept having nausea and vomiting when NG tube was clamped. Surgery determined that he should be transferred to [facility] for evaluation in a tertiary facility due to persistent ileus. He was transferred to [facility] on 10/25/2022. Patient was transferred before this hospitalist could see him on the morning of admission. Weight / BMI Weight Weight: 171 lb 3 oz Body Mass Index (BMI) 28.5 ABG / Lab / Microbiology Data Result Diagrams: 10/24/22 06:30 10/24/22 06:30 Laboratory: Laboratory Results - last 24 hr 10/24/22 06:30: Sodium 145, Potassium 3.2 L, Chloride 114 H, Carbon Dioxide 18.0 L, Anion Gap 13, BUN 14, Creatinine 0.60 L, Estim Creat Clear Calc 145.21, Est GFR (MDRD) Af Amer 192, Est GFR (MDRD) Non-Af 159, BUN/Creatinine Ratio 23.2 H, Glucose 95, Calcium 8.4 L, Total Bilirubin 1.00, AST 55 H, ALT 101 H, Alkaline Phosphatase 93, Total Protein 6.2 L, Albumin 2.8 L, Globulin 3.4, Albumin/Globulin Ratio 0.8 L 10/24/22 12:40: POC Glucose 84 10/24/22 18:14: POC Glucose 122 H 10/25/22 00:08: POC Glucose 119 H D/C Instructions Discharge Diet: Light diet - advance as tolerated May shower in (days): 1 (with the bandage in place.) Additional Activity Instructions: Pain medication may cause nausea. You should typically eat light foods as you take your pain medications. Pain medication may also cause constipation. If this is a problem for you, please discuss with your doctor. Call your doctor if your incision/area has: Continuous Slow Oozing, Sudden Increased Bleeding, Increased Pain/ Swelling, Increased Redness and Foul Smelling Discharge Call your doctor if you observe: Fever of 101 or Higher Suture Line Care: Avoid Pulling/Pushing and Avoid Pinching/Bending Additional Dressing/Incision Instructions: Leave operative bandaids on for 2 days. When you remove dressing, leave Steri-Strips on until your follow-up appointment, or until the Steri-Strips fall off on their own. Please Follow Up With: Martha Conley PA-C When: Call office to schedule an appointment to be seen in 7 days after surgery. Meaningful Use Info Meaningful Use Diagnoses (Choose all that apply): None applicable Discharge Plan Admission Admit Date/Time: 10/13/22 17:51 Attending Provider: Elida Aguirre Primary Care Provider: Care Physician,No Primary Consulting Providers: Porfirio Mendoza ; Dominique Freed Discharge Orders/Prescriptions Prescriptions: New oxycodone-acetaminophen [Percocet] 5-325 mg tablet 1 tab PO Q4H PRN (Reason: pain) 5 Days Qty: 20 0RF No Action venlafaxine 75 MG capsule,extended release 24hr 37.5 mg PO QHS Referrals / Follow Up: Care Physician,No Primary [Primary Care Provider] - Martha Conley PA-C [Med Staff - Adv Practice Prof] - Disposition Disposition (needs filled in before D/C Order can be placed): Acute Care Hospital Charges/Coding Visit Charges Inpatient E&M: 60588 Disch Hosp >30min
== END 2022-10-25 04:45 | disposition short-term general hospital (02) | DRG 414 ==
LOC: ED 17:04 → MS3 18:18
PROVIDERS: Surgery; Admitting Provider Internal Medicine; Emergency Provider Emergency Medicine; Visit Provider Student in an Organized Health Care Education/Training Program
PROC: 0FT40ZZ Resection of Gallbladder, Open Approach (ICD-10-PCS; principal; 2022-10-14 11:40)
DX: K80.00 Calculus of gallbladder with acute cholecystitis without obstruction (principal); K56.2 Volvulus; E87.0 Hyperosmolality and hypernatremia; K56.7 Ileus, unspecified; E87.1 Hypo-osmolality and hyponatremia; K91.89 Other postprocedural complications and disorders of digestive system; Q05.9 Spina bifida, unspecified; E87.6 Hypokalemia; D64.9 Anemia, unspecified; Z87.891 Personal history of nicotine dependence; Z98.2 Presence of cerebrospinal fluid drainage device; Z79.899 Other long term (current) drug therapy; K66.0 Peritoneal adhesions (postprocedural) (postinfection)
CPT/HCPCS: 36415; 36569; 36600; 71275; 74018; 74019; 74174; 74176; 75809; 80048; 80053; 80076; 81001; 82803; 82962; 83605; 83690; 83735; 84100; 85025; 86850; 86900; 86901; 88304; 93005; 94668; 97110; 97116; 97162; 97530; 97802; 99284; J2185; J7030; J7040; J7050; J7120; Q9967; A4216; J0744; J2405; J3490

== ENCOUNTER 2024-08-11 13:58 | Emergency (ER) | payer MEDICAID, SELFPAY ==
[2024-08-11] VITALS (7 sets, daily range): BP systolic 112–132; BP diastolic 66–98; PULSE 71–103; RESP 16–18; TEMP 36.6; O2SAT 98–100; BMI 24.3
--- NOTE | 2024-08-11 15:23 | CT_ITS ---
EXAM: BRAIN/HEAD WITHOUT CONTRAST CLINICAL HISTORY: Spina COMPARISON: None. Reading Location: [id number]
--- NOTE | 2024-08-11 15:25 | EX.ED.VIS.HA ---
HPI History of Present Illness Chief Complaint: Headache Narrative Narrative: 38-year-old male past medical history of spina bifida, has a ventricular shunt that was placed when he was a child. Approximately 10 years ago he had a shunt malfunction and enlarged ventricles. He was transferred to the [facility]. He has not had a follow-up with neurosurgery since then. He presents with 3 days of migraine headache. He describes a throbbing pain in the right side where his shunt enters his skull. He denies any fevers or chills, no nausea or vomiting, no photophobia or phonophobia. He has been taking ibuprofen without relief. He states that as he has had this headache for the last 3 days, the last time he had a problem he had ago for too long and wanted to get his shunt checked today because last time it was not draining properly. No exacerbating or alleviating factors to his headache. [facility] Medical History Cholelithiases Pressure ulcer of ischium, stage [address] Spina bifida Home Medications ?Medication ?Instructions ?Recorded ?Last Taken ?Type venlafaxine 75 mg capsule,extended 37.5 mg PO QHS mood 12/12/19 10/12/22 21:00 History release 24 hr oxycodone-acetaminophen 5 mg-325 1 tab PO Q4H PRN pain 5 days #20 10/15/22 Unknown Rx mg tablet (Percocet) tabs Allergy/AdvReac Type Severity Reaction Status Date / Time Iodinated Contrast Media Allergy Rash Verified 10/13/22 14:09 (CONTRASTS) acetaminophen (From Vicodin) AdvReac Chest Verified 10/13/22 14:09 tightness hydrocodone (From Vicodin) AdvReac Chest Verified 10/13/22 14:09 tightness Latex, Natural Rubber AdvReac Chest Verified 10/13/22 14:09 tightness Penicillins (PCN) AdvReac Rash Verified 10/13/22 14:09 Family History Father Diabetes Mother Hypertension Surgical History Status post cholecystectomy Previous back 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 Is on the right side of his skull and he feels pressure as well, feels pressure behind his eyes. No fevers or chills, no nausea or vomiting, denies other symptoms. No exacerbating or alleviating factors. EXAM Physical Exam Narrative Exam Narrative: Afebrile. Vital signs noted. Nontoxic-appearing. Cardiovascular examination reveals intermittent tachycardia. Lungs are clear to auscultation bilaterally. Abdomen soft and nontender with normoactive bowel sounds. No guarding or rebound. Neurological examination shows him to be awake, alert, and interactive. Insertion site of shunt on right skull is without fluctuance or erythema. No tenderness to palpation. Const Vital Signs: 08/11/24 13:59 08/11/24 15:39 08/11/24 16:00 Temperature 97.9 F Temperature Source Temporal Pulse Rate 103 H 81 73 Respiratory Rate 18 18 18 Blood Pressure 132/96 H 128/98 H 112/85 H Blood Pressure Mean 108 108 94 Pulse Ox 98 100 100 Oxygen Delivery Method Room Air Room Air Room Air 08/11/24 17:00 08/11/24 18:00 08/11/24 19:00 Temperature Temperature Source Pulse Rate 78 78 71 Respiratory Rate 16 16 16 Blood Pressure 121/76 H 116/84 H 112/66 Blood Pressure Mean 91 94 81 Pulse Ox 100 100 98 Oxygen Delivery Method Room Air Room Air Room Air 08/11/24 19:29 Temperature 98 F Temperature Source Pulse Rate 71 Respiratory Rate 16 Blood Pressure 112/66 Blood Pressure Mean 81 Pulse Ox 98 Oxygen Delivery Method MDM MDM MDM Narrative Medical decision making narrative: Differential diagnosis includes but not limited to [employer] 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 Basic laboratories will be drawn in the form of CBC and BMP as well as CT of the brain and x-ray shunt series. Ibuprofen has been ineffective in treating his pain. In order to avoid rebound headache, we will start with Tylenol orally. I reviewed his laboratory work and he has normal white count of 5.3 with hemoglobin 14.5, hematocrit 43.0, platelet count 249. Electrolyte panel is significant for chloride of 113 which I think is nonspecific, anion gap low at 4 with normal BUN of 8 and creatinine 0.87. Glucose appropriately elevated at 80. I reviewed the radiology report of the CT of the brain, and the tip of the shunt is in the posterior right ventricle. While the radiologist read it as the left ventricle enlarged moderately, patient states that this is chronic for him and he was concerned about both ventricles especially the right being enlarged. I reviewed the x-rays of the shunt series and did not appreciate a fracture and the shunt did appear to be in place. However, on review of the radiology report, they comment on a right sided ventriculoperitoneal catheter fracture at the level of T6. In discussion with the patient, he states that 10 years ago it was this abdominal shunt that was malfunctioning and he received a new shunt that empties into his chest somewhere though he cannot recall. When he was told that they are reading it is a fracture of the shunt, I had paged neurosurgery with [facility]. He was more reassured that his ventricles are not dilated and thinks that he might have a tension headache. He did not want to wait for discussion with neurosurgery and wished to sign out AGAINST MEDICAL ADVICE stating he would call the neurosurgeons office tomorrow. I feel that he has the capacity to make the decision to sign out AGAINST MEDICAL ADVICE. He was warned of the risk of permanent disability and and acknowledges an understanding and wished to sign out AGAINST MEDICAL ADVICE and follow-up as an outpatient with his neurosurgeon. Of note, after he had signed out and left, I did receive a call from neurosurgery. They did state that this is a [facility] shunt and that it empties into the vena cava so there is no fracture of his current shunt and that he could be discharged to follow-up with neurosurgery as an outpatient. The patient had mentioned that he thought that his new shunt that he received 10 years ago did drain into one of his veins in his chest. Disposition is signed out AGAINST MEDICAL ADVICE. Patient was in stable condition. History & Record Review Discussion w/independent historian: Patient Lab Data Attestation: I reviewed the patient's lab results. Labs: Laboratory Results - last 24 hr 08/11/24 15:40 WBC 5.3 RBC 4.93 Hgb 14.5 Hct 43.0 MCV 87.2 MCH 29.4 MCHC 33.7 RDW Std Deviation 41.2 RDW Coeff of Kim 13.1 Plt Count 249 MPV 8.7 Immature Gran % (Auto) 0.200 Neut % (Auto) 57.4 Lymph % (Auto) 31.6 [place] % (Auto) 7.7 Eos % (Auto) 2.3 Baso % (Auto) 0.8 Absolute Neuts (auto) 3.1 Absolute Lymphs (auto) 1.68 Nucleated RBC % 0 Sodium 140 Potassium 3.8 Chloride 113 H Carbon Dioxide 22.0 Anion Gap 4 L BUN 8 Creatinine 0.87 Estim Creat Clear Calc 101.85 Est GFR (MDRD) Af Amer 125 Est GFR (MDRD) Non-Af 104 BUN/Creatinine Ratio 9.2 L Glucose 80 Calcium 8.9 Radiography Diagnostic Testing: Clinical Impression(s) from Imaging Studies Shuntogram 08/11/24 15:50 IMPRESSION: 1. FRACTURED RIGHT-SIDED VENTRICULOPERITONEAL SHUNT CATHETER DETAILED ABOVE. 2. NO ACTIVE CARDIOPULMONARY DISEASE. 3. SPINA BIFIDA, L4 THROUGH S1. Reading Location: [facility] Discharge Plan Triage Chief Complaint: Headache ED Provider: Michi Napier Dx/Rx/DC Orders Clinical Impression: Ventricular shunt in place, Mechanical complication of ventricular (CSF) communicating shunt, Headache, Left against medical advice Instructions: ED Headache Unspecified Prescriptions: No Action venlafaxine 75 MG capsule,extended release 24hr 37.5 mg PO QHS oxycodone-acetaminophen [Percocet] 5-325 mg tablet 1 tab PO Q4H PRN (Reason: pain) 5 Days Qty: 20 0RF Primary Care Provider: Care Physician,No Primary Referrals: Care Physician,No Primary [Primary Care Provider] - Activity Restrictions/Additional Instructions: Return to the emergency department with increased headache, new or worsening symptoms. Call your neurosurgeon Dr. Robert tomorrow. Although you have signed out AGAINST MEDICAL ADVICE, you can return to the emergency department at any time should you change your mind. Print Language: Estonian Disposition Disposition: Against Medical Advice Discharge Date/Time: 08/11/24 19:31
[2024-08-11] MEDS: Acetaminophen 325 MG Tablet 650 MG PO (15:31)
[2024-08-11 15:50] LABS: Absolute Lymphocyte Count 1.68 X10^3/uL (0.83-4.51); Absolute Neutrophil Count 3.1 X10^3/uL (2.0-7.7); Basophil# 0.04 X10^3/uL; Basophil% 0.8 % (0-1); Eosinophil# 0.12 X10^3/uL; Eosinophils% 2.3 % (0-5); Hemoglobin 14.5 g/dL (13.0-16.5); Lymphocyte # 1.68 X10^3/ul (0.83-4.51); Lymphocyte % 31.6 % (19-41); Mean Corp Hgb Conc 33.7 g/dL (32-36); Mean Corpuscular Hgb 29.4 pg (27.0-32.0); Mean Corpuscular Volume 87.2 fL (80-94); Mean Platelet Vol. 8.7 fl (6.2-12.0); Monocyte# 0.41 X10^3/uL; Monocyte% 7.7 % (0-10); NRBC Flagged by Analyzer 0 % (0-5); Neutrophil # 3.05 X10^3/uL (2.7-7.7); Neutrophil % 57.4 % (47-70); Platelet Count 249 K/mm3 (150-450); RBC Distribution Width CV 13.1 % (11.6-14.6); RBC Distribution Width SD 41.2 fl (35.1-43.9); Red Blood Count 4.93 M/mm3 (4.6-6.2); White Blood Count 5.3 K/mm3 (4.4-11.0)
--- NOTE | 2024-08-11 15:50 | RAD_ITS ---
PROCEDURE: SHUNTOGRAM/PREV PLACED SHUNT REASON FOR EXAM: Headache for 3 days. TECHNIQUE: THREE VIEWS Of HEAD AND NECK, CHEST, AND ABDOMEN. COMPARISON: CT BRAIN DATED 06/28/2022. FINDINGS: The shunt catheter is fractured at the level of T6. The fracture tip proximally projects over the superior vena cava. The distal fracture tip projects over the right lower lung at the level of the T7-T8. The most distal tip of the distal fractured fragment is at the level of T9-T10. The intracranial portion of the shunt is unremarkable. Heart and mediastinum are normal. Lungs are clear. Bones and soft tissues are unremarkable. Large spina bifida defect at L4 through S1. Mild levocurvature of the lumbar spine. Metallic surgical clips in the abdomen. RAD/Shuntogram/Prev Placed Shunt IMPRESSION: 1. FRACTURED RIGHT-SIDED VENTRICULOPERITONEAL SHUNT CATHETER DETAILED ABOVE . 2. NO ACTIVE CARDIOPULMONARY DISEASE. 3. SPINA BIFIDA, L4 THROUGH S1. Reading Location: [facility]
[2024-08-11 16:07] LABS: Anion Gap 4 (5-15); BUN 8 mg/dL (7-18); BUN/Creat Ratio 9.2 RATIO (10-20); Calcium,Total 8.9 mg/dL (8.5-10.1); Chloride 113 mmol/L (98-107); Creatinine, Serum 0.87 mg/dL (0.70-1.30); EST Glomerular Filtration Rate 104 mL/min (>60); Est Glom Filt Rate - Afr Amer 125 mL/min (>60); Estimated Creatinine Clearance 101.85 ml/min; Glucose 80 mg/dL (74-106); Potassium 3.8 mmol/L (3.5-5.1); Sodium Level 140 mmol/L (136-145)
== END 2024-08-11 19:31 | disposition left against medical advice (07) ==
PROVIDERS: Emergency Provider Emergency Medicine; Visit Provider Emergency Medicine
DX: R51.9 Headache, unspecified (principal); Q05.9 Spina bifida, unspecified; Z53.29 Procedure and treatment not carried out because of patient's decision for other reasons; Z87.891 Personal history of nicotine dependence
CPT/HCPCS: 70450; 75809; 80048; 85025; 99283; A4216

== ENCOUNTER 2024-11-09 09:52 | Emergency (ER) | payer MEDICAID, SELFPAY ==
[2024-11-09 09:52] VITALS: BP 152/102; PULSE 95; RESP 19; TEMP 36.2; O2SAT 99; BMI 25.4
--- NOTE | 2024-11-09 10:07 | EDS_ITS ---
HPI History of Present Illness Chief Complaint: Other, Pain/Inj Narrative Narrative: 38-year-old male past medical history of ventricular shunt, spina bifida, presents with chest pain and shortness of breath that he has had intermittently over the last few months. He relates history that he was diagnosed with possible lung mass on the left by CT at the [facility] approximately a year or longer ago. She has not followed up with a CT of the chest since then. He is concerned regarding this mass of the chest pain that he has been having intermittently, and over the past few days as well. No fevers or chills, no cough, no nausea or vomiting. No exacerbating or alleviating factors. [facility] Medical History Cholelithiases Pressure ulcer of ischium, stage [address] Spina bifida Home Medications ?Medication ?Instructions ?Recorded ?Last Taken ?Type venlafaxine 75 mg capsule,extended 37.5 mg PO QHS mood 12/12/19 10/12/22 21:00 History release 24 hr Allergy/AdvReac Type Severity Reaction Status Date / Time Iodinated Contrast Media Allergy Rash Verified 11/09/24 09:52 (CONTRASTS) acetaminophen (From Vicodin) AdvReac Chest Verified 11/09/24 09:52 tightness hydrocodone (From Vicodin) AdvReac Chest Verified 11/09/24 09:52 tightness Latex, Natural Rubber AdvReac Chest Verified 11/09/24 09:52 tightness Penicillins (PCN) AdvReac Rash Verified 11/09/24 09:52 Family History Father Diabetes Mother Hypertension Surgical History Status post cholecystectomy 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 No fevers or chills, no cough, no leg swelling, no exacerbating or alleviating factors. EXAM Physical Exam Narrative Exam Narrative: Afebrile. Vital signs noted. Nontoxic-appearing. Cardiovascular examination reveals regular rate and rhythm. Lungs are clear to auscultation bilaterally. Abdomen is soft, nontender, with normoactive bowel sounds. Neurological examination consistent with spina bifida, but nonfocal and nonlateralizing, at baseline. Const Vital Signs: 11/09/24 09:52 11/09/24 11:52 11/09/24 11:54 Temperature 97.1 F L 98.1 F Temperature Source Temporal Pulse Rate 95 74 77 Respiratory Rate 19 H 19 H 19 H Blood Pressure 152/102 H 134/97 H 134/97 H Blood Pressure Mean 118 109 109 Pulse Ox 99 99 98 Oxygen Delivery Method Room Air Room Air MDM MDM MDM Narrative Medical decision making narrative: The differential diagnosis includes but not limited to ACS versus pulmonary embolism versus pneumonia versus pneumothorax versus lung mass. I have low suspicion for pulmonary embolism as he is PERC negative and pulse ox is 99% on room air without evidence of hypoxia. In discussion with the patient, he wants more of a referral for what ever is found today. In order to rule out some of the other etiologies of his chest pain, EKG will be obtained as well as a single troponin as he has been having intermittent chest pain for the last few months of this episode greater than 6 hours. He has an allergy to iodinated contrast media hence, CT will be performed without contrast. He can get outpatient imaging as needed after referral to pulmonology because that is what he states he wants, his referral. EKG was obtained and interpreted by myself independently as normal sinus rhythm at 73 bpm without ectopy or acute ST changes. No STEMI. I reviewed his laboratory work and he has normal white count of 5.2 with hemoglobin 14.7, hematocrit 44.4, platelet count 260. BMP is grossly unremarkable except for CO2 low at 15.3. This may be hyperventilation versus lab error. High-sensitivity troponin is 8. I do not feel that he requires serial enzymes as his chest pain has been ongoing for greater than 6 hours. I reviewed the radiology report of the CT of the chest without contrast and he does have a 2 mm noncalcified nodule in the right lung, not the left like he thought. There is no evidence of mass. No acute process according to radiology. At this point in time, I feel he can be discharged to follow-up. He was referred to primary care on-call, and also to pulmonology to follow-up for his pulmonary nodule as needed. Return instructions to the emergency department reviewed. Disposition is discharged home in stable condition. History & Record Review Discussion w/independent historian: Patient Additional record(s) reviewed:: Prior ED visit Lab Data Attestation: I reviewed the patient's lab results. Labs: Laboratory Results - last 24 hr 11/09/24 10:31 WBC 5.2 RBC 4.90 Hgb 14.7 Hct 44.4 MCV 90.6 MCH 30.0 MCHC 33.1 RDW Std Deviation 41.1 RDW Coeff of Kim 12.5 Plt Count 260 MPV 9.3 Immature Gran % (Auto) 0.400 Neut % (Auto) 51.6 Lymph % (Auto) 36.8 [place] % (Auto) 7.1 Eos % (Auto) 3.3 Baso % (Auto) 0.8 Absolute Neuts (auto) 2.7 Absolute Lymphs (auto) 1.91 Nucleated RBC % 0 Sodium 138 Potassium 4.1 Chloride 108 Carbon Dioxide 15.3 L Anion Gap 15 BUN 11 Creatinine 0.82 Estim Creat Clear Calc 108.06 Est GFR (MDRD) Non-Af 114 BUN/Creatinine Ratio 13.8 Glucose 80 Calcium 9.4 Troponin T High Sens 8 Radiography Diagnostic Testing: Clinical Impression(s) from Imaging Studies Chest CT 11/09/24 10:45 IMPRESSION: Coronary artery calcification (CAC) is is absent No acute abnormality is seen. Reading Location: [place] [id number] Differential Diagnosis Chest pain/SOB: pulmonary embolism, ACS, pneumothorax and pneumonia Discharge Plan Triage Chief Complaint: Other, Pain/Inj ED Provider: Michi Napier Dx/Rx/DC Orders Clinical Impression: Chest pain, Pulmonary nodule less than 6 mm determined by computed tomography of lung Instructions: ED Chest Pain, Uncertain Cause, ED Pulmonary Nodule, Solitary Prescriptions: No Action venlafaxine 75 MG capsule,extended release 24hr 37.5 mg PO QHS Primary Care Provider: Care Physician,No Primary Referrals: Bruce Corcoran MD [Med Staff - Assistant Operations Manager] - As soon as possible Raymond Morel DO [Med Staff - Active Staff] - As Needed Care Physician,No Primary [Primary Care Provider] - Activity Restrictions/Additional Instructions: Follow-up with a primary care provider regarding your incidental 2 mm pulmonary nodule. You have also been referred to pulmonology to see as needed regarding this. Return to the emergency department with increased chest pain, new or worsening symptoms. Print Language: Luxembourgish Disposition Disposition: Home, Self Care
[2024-11-09 10:44] LABS: Absolute Lymphocyte Count 1.91 X10^3/uL (0.83-4.51); Absolute Neutrophil Count 2.7 X10^3/uL (2.0-7.7); Basophil# 0.04 X10^3/uL; Basophil% 0.8 % (0-1); Eosinophil# 0.17 X10^3/uL; Eosinophils% 3.3 % (0-5); Hematocrit 44.4 % (40-54); Hemoglobin 14.7 g/dL (13.0-16.5); Lymphocyte # 1.91 X10^3/ul (0.83-4.51); Lymphocyte % 36.8 % (19-41); Mean Corp Hgb Conc 33.1 g/dL (32-36); Mean Corpuscular Volume 90.6 fL (80-94); Mean Platelet Vol. 9.3 fl (6.2-12.0); Monocyte# 0.37 X10^3/uL; Monocyte% 7.1 % (0-10); NRBC Flagged by Analyzer 0 % (0-5); Neutrophil # 2.68 X10^3/uL (2.7-7.7); Neutrophil % 51.6 % (47-70); Platelet Count 260 K/mm3 (150-450); RBC Distribution Width CV 12.5 % (11.6-14.6); RBC Distribution Width SD 41.1 fl (35.1-43.9); White Blood Count 5.2 K/mm3 (4.4-11.0)
--- NOTE | 2024-11-09 10:45 | CT_ITS ---
PROCEDURE: CHEST WITHOUT CONTRAST 11/09/2024 REASON FOR EXAM: HISTORY OF MASS LEFT LUNG, CHEST PAIN Ventriculoperitoneal shunt. TECHNIQUE: Chest CT without contrast. Coronal and Sagittal reconstruction series were provided. One or more dose reduction techniques were used (e.g., Automated exposure control, adjustment of the mA and/or kV according to patient size, use of iterative reconstruction technique RADIATION DOSE SUMMARY: CTDlvol: 8.08 mGy DLP: 278.61 mGycm COMPARISON: None FINDINGS: Hardware: Right-sided port a catheter. A right-sided ventriculoperitoneal shunt tube is visualized. Lymph nodes: No significant lymph node is seen. Heart and Vasculature: The heart is nonenlarged. Coronary Artery Calcifications: Absent Lungs and Airways: 2 mm noncalcified nodule in the peripheral lateral aspect of the right lower lobe anteriorly. No pulmonary mass is seen. Pleura: Unremarkable Upper Abdomen: Status post cholecystectomy. Bones: Unremarkable CT/Chest without Contrast IMPRESSION: Coronary artery calcification (CAC) is is absent No acute abnormality is seen. Reading Location: [place] [id number]
[2024-11-09 11:19] LABS: Troponin T High Sensitivity 8 ng/L (<=22)
[2024-11-09 11:39] LABS: Anion Gap 15 (5-15); BUN 11 mg/dL (4-19); BUN/Creat Ratio 13.8 RATIO (10-20); Calcium,Total 9.4 mg/dL (7.6-11.0); Carbon Dioxide 15.3 mmol/L (21.0-32.0); Chloride 108 mmol/L (98-108); Creatinine, Serum 0.82 mg/dL (0.70-1.20); EST Glomerular Filtration Rate 114 (>60); Estimated Creatinine Clearance 108.06 ml/min (50-250); Glucose 80 mg/dL (70-99); Potassium 4.1 mmol/L (3.3-5.1); Sodium Level 138 mmol/L (133-145)
[2024-11-09 11:52] VITALS: BP 134/97; PULSE 74; RESP 19; O2SAT 99
[2024-11-09 11:54] VITALS: BP 134/97; PULSE 77; RESP 19; TEMP 36.7; O2SAT 98
--- NOTE | 2024-11-09 11:55 | EKG12_ITS ---
Test Reason : CP Blood Pressure : */* mmHG Vent. Rate : 73 BPM Atrial Rate : 73 BPM P-R Int : 164 ms QRS Dur : 100 ms QT Int : 374 ms P-R-T Axes : 38 67 68 degrees QTcB Int : 412 ms Normal sinus rhythm Normal ECG Confirmed by JARETT BATISTA, JAY ([id number]), society editor JENNIFER TOMLIN ([id number]) on 11/15/2024 6:38:47 AM Referred By: EMEKA Confirmed By: JAY DENSON MD
== END 2024-11-09 12:24 | disposition home or self-care (01) ==
PROVIDERS: Emergency Provider Emergency Medicine; Visit Provider Emergency Medicine
DX: R07.9 Chest pain, unspecified (principal); Q05.9 Spina bifida, unspecified; R06.02 Shortness of breath; R91.1 Solitary pulmonary nodule; Z87.891 Personal history of nicotine dependence; Z98.2 Presence of cerebrospinal fluid drainage device
CPT/HCPCS: 71250; 80048; 84484; 85025; 93005; 99282; A4216